=== PATIENT | female | born 1995 | race Caucasian/White ===

== ENCOUNTER 2019-06-08 10:30 | Outpatient (RCR) | payer BC, SELFPAY | END 2019-09-04 23:59 | disposition home or self-care (01) | LOC: ANHLAB 10:30 | PROVIDERS: PCP Family Medicine; Visit Provider Obstetrics & Gynecology | DX: O20.0 Threatened abortion (principal); Z3A.00 Weeks of gestation of pregnancy not specified | CPT/HCPCS: 36415; 84702 ==

== ENCOUNTER 2019-10-04 13:55 | Outpatient (CLI) | payer BC, MEDICAID, SELFPAY ==
[2019-10-04] VITALS (23 sets, daily range): BP systolic 112–141; BP diastolic 66–79; PULSE 106–126; O2SAT 94–99
== END 2019-10-04 16:00 | disposition home or self-care (01) ==
LOC: ANHOBOP 15:51 → ANHOBPP 15:51
PROVIDERS: PCP Family Medicine; Visit Provider Obstetrics & Gynecology
DX: O13.2 Gestational [pregnancy-induced] hypertension without significant proteinuria, second trimester (principal); Z3A.23 23 weeks gestation of pregnancy
CPT/HCPCS: 99199

== ENCOUNTER 2019-12-14 13:51 | Outpatient (RCR) | payer BC, MEDICAID, SELFPAY ==
--- NOTE | 2019-11-30 16:48 | PC.NURSE ---
Pt came from office for a BPP due to a 6/10 BPP in office. BPP on both babies 01/05. Dr Luther notified. DC orders given. Pt verified nest appointment in office is next WednesdayDecember 04.
--- NOTE | ~2019-12-14 | US_ITS ---
EXAMINATION: US OB BPP multi gestation DATE: 11/30/2019 16:18 INDICATION: Failed prior biophysical profile TECHNIQUE: Real-time ultrasound of the pelvis was performed. COMPARISON: None. FINDINGS: There are two living fetuses. The placenta(s) is/are anterior. The amniotic fluid volume is subjecti vely normal. Fetus A: Presentation is variable. heart rate is 161 beats per minute (bpm). Biophysical profile performed by the technologist: breathing (30 sec sustained breathing in 30 minutes): 2 out of 2 movement (3 gross body movements in 30 minutes): 2 out of 2 tone (one episode of mqvqlcc-rsuxmscwz-txyiton limb movement): 2 out of 2 Amniotic fluid pocket (2 cm): 2 out of 2 Total score: 8 out of 8 Fetus B: Presentation is variable. heart rate is 163 bpm. Biophysical profile performed by the technologist: breathing (30 sec sustained breathing in 30 minutes): 2 out of 2 movement (3 gross body movements in 30 minutes): 2 out of 2 tone (one episode of vdfxjzt-xkxpmycws-gycywia limb movement): 2 out of 2 Amniotic fluid pocket (2 cm): 2 out of 2 Total score: 8 out of 8 IMPRESSION: 1. Living twin fetuses. 2. Normal placenta(s). 3. Biophysical profile 8 out of 8 for fetus A and 8 out of 8 for fetus B. Reviewed, dictated and finalized at location A.
[2019-12-14 15:40] VITALS: BP 128/80; PULSE 131
== END 2020-01-15 07:32 | disposition home or self-care (01) ==
LOC: ANHOBOP 13:51
PROVIDERS: PCP Family Medicine; Visit Provider Obstetrics & Gynecology
DX: O36.8130 Decreased fetal movements, third trimester, not applicable or unspecified (principal); O30.003 Twin pregnancy, unspecified number of placenta and unspecified number of amniotic sacs, third trimester; Z3A.33 33 weeks gestation of pregnancy
CPT/HCPCS: 59025; 76819

== ENCOUNTER 2019-12-14 15:04 | Emergency (ER) | payer BC, SELFPAY ==
[2019-12-14] VITALS (11 sets, daily range): BP systolic 139–156; BP diastolic 90–92; PULSE 73–143; RESP 17–25; TEMP 36.6; O2SAT 97–100
--- NOTE | ~2019-12-14 | XR_ITS ---
EXAMINATION: XR chest 1V portable 12/14/2019 15:59 INDICATION: Cough and shortness of breath PROCEDURE: AP portable chest COMPARISON: 01/03/2016 FINDINGS: The lungs are clear. The cardiomediastinal silhouette is within normal limits. There are no pleural effusions. There is no pneumothorax suspected. IMPRESSION: 1: NO ACUTE CARDIOPULMONARY DISEASE. Reviewed, dictated and finalized at location B.
--- NOTE | 2019-12-14 15:21 | PC.NURSE ---
agree with triage note. pt states is hard to breath when laying down, has random coughing fits. also noting lower extremity edema. pt states ob is worried about possible chf.
--- NOTE | 2019-12-14 15:30 | ECG_ITS ---
Measurements Intervals [place] Rate: 130 P: 23 [place]: 135 QRS: 4 QRSD: 78 T: 3 QT: 333 QTc: 490 Interpretive Statements SINUS TACHYCARDIA LEFT VENTRICULAR HYPERTROPHY AND ST-T CHANGE BORDERLINE T WAVE ABNORMALITY- ANTEROLAT/INF LEADS BASELINE WANDER- V1 ABNORMAL ECG Electronically Signed On 12-14-2019 16:03:47 CDT by Eran Isidro D.O.
[2019-12-14] MEDS: SODIUM CHLORIDE 0.9% IV 500 ML 999 ML IV CONT (15:50)
[2019-12-14 16:11] LABS: Alanine Aminotransferase 18 U/L (4-35); Albumin Level 3.6 g/dL (3.5-5.1); Alkaline Phosphatase 186 U/L (38-126); Aspartate Amino Transferase 31 U/L (14-36); Bilirubin,Total 0.4 mg/dL (0.2-1.3); Blood Urea Nitrogen 7 mg/dL (7-17); Calcium 9.2 mg/dL (8.4-10.2); Carbon Dioxide 23 mmol/L (22-30); Chloride 102 mmol/L (98-107); Estimated CRCL calculation 187 ml/min; Estimated Glomerular Filt Rate > 60; Glucose 99 mg/dL (65-105); Lipase 48 U/L (23-300); Partial Thromboplastin Time 26.6 SECONDS (22.3-36.8); Potassium 3.7 mmol/L (3.4-5.0); Sodium 132 mmol/L (137-145)
--- NOTE | 2019-12-14 16:11 | ED.GENADULT ---
HPI - General Adult General Chief complaint: Shortness of Breath/Dyspnea Stated complaint: short of breath/cough/loss of voice/ Time Seen by Provider: 12/14/19 15:34 Source: patient and family Mode of arrival: ambulatory Limitations: no limitations History of Present Illness HPI narrative: Patient is a 24-year-old female who presents from obstetrical unit after having evaluation of patient over the last 48 hours has developed nonproductive cough some congestion and hoarseness patient denies sick contacts patient denies any current pain patient notes that her cough is nonproductive. Patient is currently with twin gestations at 33 weeks. Patient is managed by cardiac exercise physiologist Dr. Luther. Patient is also seen by [place] high risk . Patient is currently taking labetalol with history of hypertension and gestational diabetes. Patient notes that she has been compliant with her medications. Patient denies fever vomiting diarrhea urinary symptoms or vaginal complaints . Patient was evaluated at the obstetrical unit this morning after noting that she felt decreased movement with 1 of the babies. Patient was evaluated and sent to ER for further evaluation after being cleared from the obstetrical unit Related Data Home Medications Medication Instructions Recorded Confirmed sitagliptin 100 mg-metformin ER 1 tablet PO DAILY 12/08/19 1,000 mg tablet,extended [id number] mp aspirin [Aspirin Low Dose] 81 mg PO BID 12/14/19 atorvastatin 40 mg PO HS 12/14/19 clopidogrel [Plavix] 75 mg PO DAILY 12/14/19 hydralazine 10 mg PO ONCE PRN 12/14/19 levothyroxine 88 mcg PO DAILY 12/14/19 metoprolol succinate 25 mg PO HS 12/14/19 Allergies Allergy/AdvReac Type Severity Reaction Status Date / Time amoxicillin Allergy Unknown Unknown Verified 12/08/19 14:04 codeine Allergy Unknown Unknown Verified 12/08/19 14:04 Penicillins Allergy Unknown Unknown Verified 12/08/19 14:04 [facility] Social History Social History Smoking status: Never smoker Course Consultations Consultation #1: Discussed case twice with analytical chemistry teacher who would like the patient to follow in clinic given the clinical findings. Recommends Claritin and Delsym for symptoms. Does not recommend that the patient be kept in the hospital at this time Date: 12/14/19 Time: 18:00 Vital Signs Vital signs: Vital Signs Temperature 97.9 F 12/14/19 15:10 Pulse Rate 133 H 12/14/19 15:10 Respiratory Rate 20 12/14/19 15:10 Blood Pressure 156/92 H 12/14/19 15:10 Pulse Oximetry 97 12/14/19 15:10 Temperature 97.9 F 12/14/19 15:10 Pulse Rate 143 H 12/14/19 15:23 Respiratory Rate 20 12/14/19 15:10 Blood Pressure 156/92 H 12/14/19 15:10 Pulse Oximetry 97 12/14/19 15:10 Medical Decision Making MDM Narrative Medical decision making narrative: Patient in the room resting comfortably afebrile nontoxic-appearing aware of discussions and recommendations by her cardiac exercise physiologist felt appropriate for outpatient reevaluation patient given a 500 bolus in the emergency department patient feels comfortable with the plan and will follow with her cardiac exercise physiologist who is evaluating the patient with twice weekly visits patient provided with reasons to return if necessary no pneumonia seen on exam is being tested for COVID-19 and will self quarantining until results have been given. Vital Signs Vital Signs: Vital Signs Temperature 97.9 F 12/14/19 15:10 Pulse Rate 133 H 12/14/19 15:10 Respiratory Rate 20 12/14/19 15:10 Blood Pressure 156/92 H 12/14/19 15:10 Pulse Oximetry 97 12/14/19 15:10 Temperature 97.9 F 12/14/19 15:10 Pulse Rate 143 H 12/14/19 15:23 Respiratory Rate 12/14/19 15:10 Blood Pressure 156/92 H 12/14/19 15:10 Pulse Oximetry 97 12/14/19 15:10 Lab Data Result diagrams: 12/14/19 15:50 12/14/19 15:50 Labs: Lab Results 12/14/19 12/14/19 12/14/19 Range/Units 15:50 15:50 1
[2019-12-14 16:23] LABS: NT Pro B Type Natriuretic Pept 14 PG/ML (5-100); Troponin I < 0.012 ng/mL (0.000-0.034)
[2019-12-14 16:41] LABS: Add Urine Microscopic? YES; Appearance Urine Cloudy (Clear); Bacteria Urine Trace /hpf; Bilirubin Urine Negative (Negative); Blood Urine Negative (Negative); Color Urine Yellow (Yellow); Glucose Urine UA Negative (Negative); Ketones Urine Trace mg/dL (Negative); Leukocyte Esterase Ur Trace LEU/UL (Negative); Mucus Urine Rare /lpf; Nitrate Urine Negative (Negative); Protein Urine Negative (Negative); RBC Urine 0-2 /hpf (0-2); Specific Grav Ur 1.011 (1.001-1.035); Squamous Epithelial Cell Urine Many /hpf (Few); Urobilinogen Urine Negative mg/dL (<2.0); WBC Urine 0-3 /hpf
[2019-12-14 16:54] LABS: Amphetamine Screen Urine Negative (Negative); Barbiturate Screen Urine Negative (Negative); Benzodiazepines Screen Urine Negative (Negative); Cannabinoid Screen Urine Negative (Negative); Cocaine Screen Urine Negative (Negative); Methadone Screen Urine Negative (Negative); Opiate Screen Urine Negative (Negative); Phencyclidine Screen Urine Negative (Negative)
--- NOTE | 2019-12-14 17:33 | PC.NURSE ---
Called lab to add on CBCD
[2019-12-14 17:45] LABS: Basophils Percent Auto 0.3 % (0.2-1.2); Eosinophils Absolute Auto 0.1 K/mm3 (0-0.3); Hematocrit 35.7 % (37.0-47.0); Hemoglobin 12.3 g/dL (12.0-15.0); Immature Granulocyte Absolute 0.16 K/mm3 (0.00-0.031); Immature Granulocyte Percent A 1.3 % (0-0.5); Lymphocytes Absolute Auto 2.85 K/mm3 (0.9-3.2); Lymphocytes Percent Auto 23.3 % (18.3-44.2); Mean Corpuscular HGB Conc 34.5 g/dl (32-36); Mean Corpuscular Hemoglobin 30.3 pg (26-34); Mean Corpuscular Volume 87.9 fl (80-100); Mean Platelet Volume 12.4 fl (7.4-10.4); Monocytes Absolute Auto 0.9 K/mm3 (0.1-0.6); Monocytes Percent Auto 7.4 % (2.6-8.5); Neutrophils Absolute Auto 8.2 K/mm3 (1.3-6.7); Neutrophils Percent Auto 66.7 % (45.5-73.1); Platelet Count Result 227 k/mm3 (150-375); Red Blood Count 4.06 M/mm3 (4.2-5.4); Red Cell Distribution Width 14.3 % (11.5-14.5); White Blood Count 12.2 K/mm3 (4.5-10.0)
[2019-12-15 14:35] LABS: SARS-CoV-2 RNA PCR Negative
== END 2019-12-14 18:48 | disposition home or self-care (01) ==
PROVIDERS: Emergency Medicine Emergency Medical Services; Emergency Provider Emergency Medicine; PCP Family Medicine
DX: O99.513 Diseases of the respiratory system complicating pregnancy, third trimester (principal); J06.9 Acute upper respiratory infection, unspecified; Z20.828 Contact with and (suspected) exposure to other viral communicable diseases; O30.003 Twin pregnancy, unspecified number of placenta and unspecified number of amniotic sacs, third trimester; O24.415 Gestational diabetes mellitus in pregnancy, controlled by oral hypoglycemic drugs; O10.913 Unspecified pre-existing hypertension complicating pregnancy, third trimester; O26.893 Other specified pregnancy related conditions, third trimester; R00.0 Tachycardia, unspecified; I51.7 Cardiomegaly; R94.31 Abnormal electrocardiogram [ECG] [EKG]; Z79.82 Long term (current) use of aspirin; Z79.02 Long term (current) use of antithrombotics/antiplatelets; Z3A.33 33 weeks gestation of pregnancy
CPT/HCPCS: 36415; 71045; 80053; 80307; 81001; 83690; 83880; 84484; 85025; 85610; 85730; 87081; 87635; 87880; 93005; 96360; 96361; 99284; C9803; J7040; U0003

== ENCOUNTER 2020-01-11 08:49 | Outpatient (CLI) | payer BC, MEDICAID, SELFPAY ==
[2020-01-11 09:29] LABS: Hematocrit 35.1 % (37.0-47.0); Hemoglobin 11.4 g/dL (12.0-15.0); Mean Corpuscular HGB Conc 32.5 g/dl (32-36); Mean Corpuscular Hemoglobin 28.6 pg (26-34); Mean Platelet Volume 12.4 fl (7.4-10.4); Platelet Count Result 208 k/mm3 (150-375); Red Blood Count 3.99 M/mm3 (4.2-5.4); Red Cell Distribution Width 14.4 % (11.5-14.5); White Blood Count 9.8 K/mm3 (4.5-10.0)
[2020-01-12 07:51] LABS: Rapid Plasma Reagin Non-Reactive (NonReactive)
== END 2020-01-11 08:50 | disposition home or self-care (01) ==
PROVIDERS: PCP Family Medicine; Visit Provider Obstetrics & Gynecology
DX: Z34.93 Encounter for supervision of normal pregnancy, unspecified, third trimester (principal); Z3A.00 Weeks of gestation of pregnancy not specified
CPT/HCPCS: 36415; 85027; 86592; 86850; 86900; 86901

== ENCOUNTER 2020-01-12 05:01 | Inpatient (IN) | payer BC, MEDICAID, SELFPAY ==
--- NOTE | 2020-01-11 17:04 | P.HP_ITS ---
H&P: HPI History of Present Illness Date/Time: 01/11/20 17:04 Chief complaint: Prior For Twins Narrative: Genesis Banegas is a 25 year old female at 37+ weeks with di-di twins and h/o prior C section being admitted for elective repeat C/S. c/b chronic HTN and GDMA2. Occasional contractions. + movement. No bleeding or leaking fluid Review of Systems Review of Systems: All systems reviewed & are unremarkable except as noted in HPI and below PMFSH Social History Social History Smoking status: Never smoker Meds Home Medications and Allergies Home Medications Medication Instructions Recorded Confirmed Type quetiapine 50 mg tablet 50 mg PO BID #180 tablet 09/18/19 Rx labetalol 200 mg tablet 200 mg PO Q12H #60 tablet 11/27/19 Rx aspirin [Aspirin Low Dose] 81 mg PO DAILY 12/14/19 History metformin 500 mg tablet 500 mg PO BID 12/22/19 History diphenhydramine HCl 50 mg/30 mL 50 mg PO Q8H PRN 12/29/19 History oral liquid docosahexaenoic acid 200 mg capsule mg PO 12/29/19 History Allergies Allergy/AdvReac Type Severity Reaction Status Date / Time amoxicillin Allergy Unknown Unknown Verified 01/05/20 14:22 codeine Allergy Unknown Unknown Verified 01/05/20 14:22 Penicillins Allergy Unknown Unknown Verified 01/05/20 14:22 Exam Const: General: no acute distress Resp: Auscultation: clear to auscultation bilaterally Cardio: Rate: regular rate Rhythm: regular rhythm GI: Inspection: non-distended GI Palp: Yes Soft to palpation and No Tenderness to palpation present (GI) Percussion: Yes other (gravid) Extrem: Right lower extremity: edema Left lower extremity: edema Psych: Mental Status: mental status grossly normal Assessment and Plan Assessment and plan (1) Twin in third trimester: Code(s): O30.003 - Twin , unspecified number of placenta and unspecified number of amniotic sacs, third trimester Status: Acute Assessment and Plan: testing has all been normal, concordant growth (2) Previous delivery affecting : Code(s): O34.219 - Maternal care for unspecified type scar from previous delivery Status: Acute Assessment and Plan: Proceed with repeat C section. She signed consent after risks, benefits, complications, and alternatives discussed. Risks include but are not limited to bleeding; transfusion; infection; damage to bowel, bladder, ureter, and/or blood vessels; risk of anesthesia. She expressed understanding and wishes to proceed. (3) Gestational diabetes mellitus (GDM) during childbirth controlled on oral hypoglycemic therapy: Code(s): O24.425 - Gestational diabetes mellitus in childbirth, controlled by oral hypoglycemic drugs Status: Acute (4) Hypertension complicating in third trimester: Code(s): O16.3 - Unspecified maternal hypertension, third trimester Status: Acute Assessment and Plan: On labetalol, no evidence of preeclampsia
[2020-01-12] VITALS (82 sets, daily range): BP systolic 93–148; BP diastolic 52–92; PULSE 63–130; RESP 11–20; TEMP 36.5–36.8; O2SAT 95–100; BMI 55.6
--- NOTE | 2020-01-12 05:32 | LDADM ---
This patient, Genesis Banegas, was admitted to Labor/Delivery/Recovery 120 on 01/12/20 at 05:01. Plans for labor, pain management and were discussed with patient. Patient/family oriented to hospital policies and general routines including ID bracelet, bed and alarms, visiting hours, pain management, procedures, bathroom and other care routines, personal items, smoking policy, room service/diet and guest tray routines, infant security routines, and visiting hours. Patient/Family are encouraged to report perceived risks to care and to ask questions if they do not understand what they are told or what they should do. See OBIX for further documentation.
[2020-01-12] MEDS: LACTATED RINGERS 1,000 ML 999 ML IV CONT ×2 (05:47→11:20)
[2020-01-12 05:51] LABS: Glucose Point of Care 95 (65-105)
[2020-01-12] MEDS: LACTATED RINGERS 1,000 ML 125 ML IV CONT (06:16)
[2020-01-12] MEDS: LABETALOL HCL 100 MG TABLET 200 MG PO ×2 (06:58→21:56)
[2020-01-12] MEDS: CLINDAMYCIN 900 MG/NS 50 ML 900 MG/50 ML PIGGYBACK 50 MG IVPB (07:02)
--- NOTE | 2020-01-12 07:07 | WPDANESEPPF ---
Anes - Initial Pre Proc Eval Procedure: Operation Date: 01/12/20 07:30 Proposed Procedures p Repeat Section For Twins - Myah Luther MD Date/Time: 01/12/20 07:07 Surgeon: Myah Luther MD Pre Op Diagnosis: Prior For Twins Patient Data Age: 25 Gender: F Height: 5 ft 2 in Weight: 138 kg Last Vital Signs Temp 36.8 C 01/12/20 06:57 Pulse 108 H 01/12/20 06:58 BP 139/77 01/12/20 06:57 Allergies Allergy/AdvReac Type Severity Reaction Status Date / Time amoxicillin Allergy Unknown Hives Verified 01/12/20 06:19 Penicillins Allergy Unknown Hives Verified 01/12/20 06:20 codeine AdvReac Unknown Nausea and Verified 01/12/20 06:20 Vomiting Home Medications Medication Instructions Recorded Confirmed Type labetalol 200 mg tablet 200 mg PO Q12H #60 tablet 11/27/19 01/12/20 Rx docosahexaenoic acid 200 mg capsule 200 mg PO DAILY 12/29/19 01/12/20 History aspirin 1 tablet PO DAILY 01/12/20 01/12/20 History diphenhydramine HCl [Unisom 25 mg PO HS PRN 01/12/20 01/12/20 History SleepMelts] metformin 500 mg PO BID 01/12/20 01/12/20 History quetiapine [Seroquel] 50 mg PO HS 01/12/20 01/12/20 History Laboratory Tests 01/12/20 05:44 POC Capillary Glucose 95 mg/dl mg/dl (65-105) Patient hx anesthesia problems: none Family hx anesthesia problems: none PMFSH Past Medical History Medical History Attention-deficit hyperactivity disorder, unspecified type Generalized anxiety disorder Gestational diabetes mellitus (GDM) during childbirth controlled on oral hypoglycemic therapy Hyperlipidemia Hypertension complicating in third trimester Hypothyroid Personal history of traumatic brain injury Social History Social History Smoking status: Former smoker Substance use: former 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 Gender identity (if verbalized by the patient): Female Spiritual care concerns: No Anes - Eval Final PreProcedure Day of Procedure 01/12/20 07:07 Patient weight: super morbidly obese Heart: regular rate and rhythm Lungs: decreased breath sounds Airway: Mallampati scale class II Neurological: alert and oriented Last oral intake: >/= 8 hours ASA classification: III Emergent: no Anesthetic plan: proceed Anesthesia type and monitoring: regional spinal and standard monitoring Informed Consent: The patient's anesthetic plan and its attendant risks and benefits were discussed with the patient/family/POA. Questions were solicited and answers provided to the satisfaction of the patient/family/POA.
[2020-01-12] MEDS: GENTAMICIN SULFATE INJ 425 MG in DEXTROSE 5% 100 ML 94.4 MG IVPB (07:26)
--- NOTE | 2020-01-12 08:07 | SUR.OPER ---
Christian Gonzalez was assisted out of OR per wheelchair due to feeling light headed.
--- NOTE | 2020-01-12 08:39 | P.OP_ITS ---
Procedure Note - Detailed Date of procedure: 01/12/20 Pre-op diagnosis: Prior For Twins Prior C section, di-di twins, chronic HTN, GDMA2 Post-op diagnosis: same Procedure performed: Repeat LTCS Description of procedure: For the procedure, she was taken to the operating room where spinal anesthesia was obtained and found to be adequate. She was prepared and draped in the normal sterile fashion in the dorsal supine position with a leftward tilt. A Pfannenstiel skin incision was made over her prior incision using the scalpel. The incision was extended to the underlying layer of fascia with the scalpel then extended laterally with the Rapp scissors on the fascia. The underlying rectus muscles were dissected off bluntly and sharply and in the midline. The peritoneum was entered sharply and extended inferiorly and superiorly with good visualization of the bladder. The bladder blade was inserted. The vesicouterine peritoneum was tented up with the Metzenbaum scissors and entered sharply and extended laterally with the Rapp scissors scissors. The bladder flap was created sharply. The bladder blade was reinserted. The lower uterine segment was incised in a transverse fashion with the scalpel. The incision was digitally stretched in a cephalad caudad direction. Baby A's membranes were ruptured with clear fluid noted. The 's head was delivered atraumatically. The shoulders and body were delivered easily. The cord was clamped x2 and cut and the infant was given to the awaiting nurse. Baby B's membranes were still intact. The membranes were ruptured with clear fluid noted both feet were at the incision so gentle traction was placed on the legs until the level of the hips were delivered. Then gentle traction was placed on the hips until the scapula had been delivered. The left (anterior) arm was flexed across the chest and brought easily through the incision. The was then rotated 180? and the other arm was then flexed across the chest and brought easily through the incision. The 's head was flexed and delivered easily. The cord was clamped x2 and cut and the infant was passed to the waiting nurse. Cord gas and cord blood was obtained from both cords. The placenta was then manually extracted. The uterus was exteriorized and cleared of all clots and debris. The uterine incision was then closed using 0 Vicryl in a running locked fashion. The uterus was then returned to the abdomen. The gutters were cleared of all clots and debris. The uterine incision was reinspected and found to be hemostatic. The rectus muscles were inspected. Any bleeding points were cauterized. The fascia was then closed using 0 Vicryl in a running locked fashion. The subcutaneous tissue was irrigated. All bleeding points were cauterized. Then the skin was closed using interrupted absorbable louie. She tolerated the procedure well. Sponge lap needle and instrument counts were correct x2. She was taken to the recovery area in stable condition. Anesthesia: spinal Surgeon: Myah Luther MD Estimated blood loss (mL): 395 Drains: Yes ([place]) Packing: No Pathology: yes Complications: No immediate complications Condition: stable Disposition: floor Findings: Baby A - female, cephalic, Apgars 4/7, 7#8oz; Baby B - male, double f ootling breech, Apgars 8/9, 7#13oz; normal uterus, tubes, and ovaries
--- NOTE | 2020-01-12 08:47 | SUR.PHASEI ---
1000 ml LR with 40 units Pitocin is hanging with 200 ml left to count.
[2020-01-12] MEDS: OXYTOCIN 30 UNITS/NS 500 ML 30 UNITS/500 ML BAG 125 UNITS IV CONT (09:57)
[2020-01-12] MEDS: ONDANSETRON INJ 4 MG/2 ML VIAL IV PUSH (10:40)
--- NOTE | 2020-01-12 11:15 | SUR.PHASEI ---
To nursery per stretcher to see infants.
[2020-01-12] MEDS: diphenhydrAMINE HCl INJ 50 MG/ML VIAL 25 MG IV PUSH ×2 (13:49→21:56)
[2020-01-12] MEDS: KETOROLAC 30 MG/ML VIAL (*BKC) IV PUSH (20:10)
[2020-01-12] MEDS: QUEtiapine FUMARATE 25 MG TABLET 50 MG PO (21:57)
[2020-01-13] VITALS (8 sets, daily range): BP systolic 100–143; BP diastolic 52–82; PULSE 82–106; RESP 16–18; TEMP 36.4–37; O2SAT 95–98
[2020-01-13] MEDS: KCL 20 MEQ/D5/0.45% SOD CHL 1,000 ML 125 ML IV CONT (00:06)
[2020-01-13] MEDS: ACETAMINOPHEN 325 MG TABLET 650 MG PO ×3 (01:46→15:43)
[2020-01-13] MEDS: KETOROLAC 30 MG/ML VIAL (*BKC) IV PUSH ×2 (05:12→12:27)
[2020-01-13 06:22] LABS: Basophils Percent Auto 0.3 % (0.2-1.2); Eosinophils Percent Auto 0.3 % (0-4.4); Hematocrit 30.4 % (37.0-47.0); Hemoglobin 10.2 g/dL (12.0-15.0); Immature Granulocyte Absolute 0.11 K/mm3 (0.00-0.031); Lymphocytes Absolute Auto 2.67 K/mm3 (0.9-3.2); Lymphocytes Percent Auto 23.3 % (18.3-44.2); Mean Corpuscular HGB Conc 33.6 g/dl (32-36); Mean Corpuscular Hemoglobin 30.9 pg (26-34); Mean Corpuscular Volume 92.1 fl (80-100); Mean Platelet Volume 12.8 fl (7.4-10.4); Monocytes Absolute Auto 0.8 K/mm3 (0.1-0.6); Monocytes Percent Auto 7.3 % (2.6-8.5); Neutrophils Absolute Auto 7.8 K/mm3 (1.3-6.7); Neutrophils Percent Auto 67.8 % (45.5-73.1); Platelet Count Result 180 k/mm3 (150-375); Red Cell Distribution Width 15.8 % (11.5-14.5); White Blood Count 11.5 K/mm3 (4.5-10.0)
[2020-01-13] MEDS: MULTIVIT/MIN/PREN/FOL AC/IRON TABLET 1 TAB PO (08:18)
[2020-01-13] MEDS: LABETALOL HCL 100 MG TABLET 200 MG PO ×2 (08:19→20:45)
[2020-01-13] MEDS: DOCUSATE SODIUM 100 MG CAPSULE PO ×2 (08:19→15:43)
[2020-01-13] MEDS: diphenhydrAMINE HCl INJ 50 MG/ML VIAL 25 MG IV PUSH (08:20)
--- NOTE | 2020-01-13 08:28 | WPDANLDNPN2 ---
Anes-Prog Note L&D-Neuraxial Date/Time: 01/13/20 08:28 Opiod-related complaints: none Patient feedback: Patient satisfied with post-operative pain management.
--- NOTE | 2020-01-13 08:28 | WPDANLDPN2 ---
Anes-Prog Note L&D Date/Time: 01/13/20 08:28 Comfortable throughout: section Neuraxial method: spinal Epidural/Spinal procedure site: clean & non-tender Neuro status: Neuro function grossly intact. Cardiovascular status: normal Respiratory status: normal Airway patency: baseline Mental status: baseline Post-Op hydration status: normal Vital Signs: Last Vital Signs Temp 36.9 C 01/13/20 05:05 Pulse 84 01/13/20 08:19 Resp 16 01/13/20 05:07 BP 107/52 L 01/13/20 05:05 Pulse Ox 97 01/13/20 05:07 I/O: Intake & Output 01/12/20 01/13/20 01/13/20 23:59 07:59 15:59 Intake Total 1330 300 Output Total 725 675 Balance 605 -375 Post-procedural complaints: none Patient feedback: Patient satisfied with anesthetic care.
--- NOTE | 2020-01-13 10:35 | P.PNOB_ITS ---
OB - PN: Subj Subjective Date/time seen: 01/13/20 10:35 Patient comments: no complaints, pain well controlled, incisional pain, tolerating diet, flatus present and other (Lochia similar to menses) baby status: doing well OB - PN: Obj Data Labs CBC & Chem 7: 01/13/20 05:23 Labs: Laboratory Results - last 24 hr 01/13/20 05:23 WBC 11.5 H RBC 3.30 L Hgb 10.2 L Hct 30.4 L MCV 92.1 MCH 30.9 D MCHC 33.6 RDW 15.8 H Plt Count 180 MPV 12.8 H Immature Gran % (Auto) 1.0 H Neut % (Auto) 67.8 Lymph % (Auto) 23.3 [place] % (Auto) 7.3 Eos % (Auto) 0.3 Baso % (Auto) 0.3 Lymph # (Auto) 2.67 [place] # (Auto) 0.8 H Eos # (Auto) 0.0 Baso # (Auto) 0.0 Abs Immat Gran (auto) 0.11 H Absolute Neuts (auto) 7.8 H Absolute Nucleated RBC 0.0 Nucleated RBC % 0.0 OB - PN A/P Plan day: 1 (s/p C section, doing well) Plan: routine care Time Spent With Patient Time: Total time spent is greater than 50% in coordination of care (as doc umented) at patient's floor/unit and/or counseling patient: Exam Const: General: no acute distress Resp: Auscultation: clear to auscultation bilaterally Cardio: Rate: regular rate Rhythm: regular rhythm GI: Inspection: non-distended, incision (Intact without erythema, drainage, or induration) and other (Fundus firm and nontender at umbilicus) GI Palp: Yes abdominal tenderness (appropriate ) and Yes Soft to palpation Extrem: General: no edema
[2020-01-13] MEDS: QUEtiapine FUMARATE 25 MG TABLET 50 MG PO (19:26)
[2020-01-13] MEDS: KETOROLAC 10 MG TABLET PO (19:27)
[2020-01-13] MEDS: TETANUS,DIPHTHERIA,AC PERTUSSIS ADULT (0.5 ML) BOOSTRIX IM (19:58)
[2020-01-13] MEDS: diphenhydrAMINE HCl CAP 25 MG CAPSULE PO (20:05)
[2020-01-13] MEDS: SIMETHICONE 80 MG TAB.CHEW PO (23:10)
--- NOTE | 2020-01-14 03:40 | PC.NURSE ---
01/13/2020 at 2130 Patient viewed the discharge video Mother & Baby Care, The First Two Weeks . Patient was given the opportunity and encouraged to ask questions. Patient verbalized understanding of information shared and has been given the mother/baby guide for home reference.
[2020-01-14] MEDS: KETOROLAC 10 MG TABLET PO ×2 (05:35→11:51)
[2020-01-14] MEDS: SIMETHICONE 80 MG TAB.CHEW PO ×3 (05:35→11:51)
[2020-01-14 08:15] VITALS: BP 143/91; PULSE 98; RESP 18; TEMP 36.2; O2SAT 100
[2020-01-14] MEDS: DOCUSATE SODIUM 100 MG CAPSULE PO (08:31)
[2020-01-14] MEDS: MULTIVIT/MIN/PREN/FOL AC/IRON TABLET 1 TAB PO (08:31)
[2020-01-14 08:32] VITALS: PULSE 99
[2020-01-14] MEDS: LABETALOL HCL 100 MG TABLET 200 MG PO (08:32)
--- NOTE | 2020-01-14 08:34 | PM.OBPNVD ---
OB - PN: Subj Subjective Date/time seen: 01/14/20 08:34 Patient comments: no complaints, pain well controlled, tolerating diet, flatus present and other (Ambulating and voiding without problems. Lochia similar to menses) baby status: doing well OB - PN: Obj Data Labs CBC & Chem 7: 01/13/20 05:23 OB - PN A/P Plan day: 2 (s/p C section, doing well) Plan: routine care and discharge home (Follow up in 1 week) Time Spent With Patient Time: Total time spent is greater than 50% in coordination of care (as documented) at patient's floor/unit and/or counseling patient: Time with patient: less than 15 minutes Exam Const: General: no acute distress Resp: Auscultation: clear to auscultation bilaterally Cardio: Rate: regular rate Rhythm: regular rhythm GI: Inspection: non-distended, incision (Intact without erythema, drainage, or induration) and other (Fundus firm and nontender below umbilicus) GI Palp: Yes abdominal tenderness (appropriate) and Yes Soft to palpation Extrem: General: no edema
--- NOTE | 2020-01-14 08:34 | PM.OBDSVD ---
DS: Admitting Diagnosis Admitting Diagnosis Admitting Diagnosis: Prior For Twins OB - DS: Summary OB Procedures : None OB Procedures Intrapartum: OB Procedures: : None Peripartum Data Delivery Method: Section Procedures: Procedures Operation Date: 01/12/20 07:30 Actual Procedures Side Surgeon p Repeat Section For Twins Not Applicable Myah Luther MD complications: none Status at Discharge Functional status at discharge: independent ambulation Overall status at discharge: patient is progressing back to baseline Time Spent with Patient Time attestation: Total time spent providing and/or coordinating discharge services: Time spent: Less than 30 minutes DS: Data Data Completed and Pending Pending studies at discharge: Pending at discharge 01/12/20 08:07 Surgical [PTH] Routine Discharge Plan Discharge Attending physician on discharge: Myah Luther Discharging Clinician: Myah Luther Patient Disposition: Home, Self-Care Activity: may shower and pelvic rest Diet: regular Wound Care Instructions: incision open to air Patient Instructions: Antibiotic Form Stand Alone Forms: General Discharge Information Follow-up/Referrals: Myah Luther MD [Physician] - 1 Week Discharge Medications: New hydrocodone-acetaminophen 5-325 mg Tablet 1 tab PO Q4H PRN (Reason: Moderate Pain (4-6)) Qty: 30 RF: 0 ketorolac 10 mg Tablet 10 mg PO Q6H PRN (Reason: Abdominal Cramping) Qty: 30 RF: 0 Continued DHA 200 mg capsule 200 mg PO DAILY RF: 0 quetiapine [Seroquel] 50 mg tablet 50 mg PO HS RF: 0 Unisom SleepMelts 25 mg Tablet,Disintegrating 25 mg PO HS PRN (Reason: Sleep) RF: 0 labetalol 200 mg tablet 200 mg PO Q12H Qty: 60 RF: 0 Discontinued aspirin 81 mg tablet,chewable 1 tablet PO DAILY RF: 0 metformin 500 mg tablet extended release 24 hr 500 mg PO BID RF: 0 Date of admission: 01/12/20 05:01 Primary Care Provider: Eliud Zaman Admitting Provider: Myah Luther Attending physician on admission: Myah Luther
== END 2020-01-14 13:00 | disposition home or self-care (01) | DRG 787 ==
LOC: ANHLDR 05:17 → ANHOB2 13:27
PROVIDERS: Admitting Provider Obstetrics & Gynecology; PCP Family Medicine; Visit Provider Obstetrics & Gynecology
PROC: 10D00Z1 Extraction of Products of Conception, Low, Open Approach (ICD-10-PCS; CPT 59514; principal; 2020-01-12 07:30)
DX: O30.043 Twin pregnancy, dichorionic/diamniotic, third trimester (principal); O10.92 Unspecified pre-existing hypertension complicating childbirth; O24.420 Gestational diabetes mellitus in childbirth, diet controlled; O34.211 Maternal care for low transverse scar from previous cesarean delivery; O99.214 Obesity complicating childbirth; O32.8XX2 Maternal care for other malpresentation of fetus, fetus 2; E66.01 Morbid (severe) obesity due to excess calories; Z3A.37 37 weeks gestation of pregnancy; Z37.2 Twins, both liveborn
CPT/HCPCS: 36415; 85025; 85027; 86592; 86850; 86900; 86901; 88307; 90715; A9270; J0131; J1200; J1580; J1885; J2274; J2370; J2405; J2590; J2704; J3480; J7120

== ENCOUNTER 2020-01-16 17:11 | Observation (INO) | payer BC, MEDICAID, SELFPAY ==
[2020-01-16] VITALS (68 sets, daily range): BP systolic 123–183; BP diastolic 61–115; PULSE 60–126; RESP 12–18; TEMP 36.7–37.2; O2SAT 95–100
--- NOTE | ~2020-01-16 | XR_ITS ---
EXAMINATION: XR chest 1V portable DATE: 01/16/2020 18:27 INDICATION: Shortness of breath. Heart flutter. TECHNIQUE: frontal view of the chest was obtained. COMPARISON: Chest radiograph dated 12/14/2019 FINDINGS: Linear discoid atelectasis at the medial right lung base. No other airspace opacities, pulmonary dariana a, pleural effusion or pneumothorax. The cardiomediastinal silhouette is normal. IMPRESSION: 1. Mild right basilar atelectasis. Reviewed, dictated and finalized at location A.
--- NOTE | 2020-01-16 17:30 | ECG_ITS ---
Measurements Intervals [place] Rate: 100 P: 35 DC: 143 QRS: 14 QRSD: 84 T: 31 QT: 327 QTc: 423 Interpretive Statements SINUS TACHYCARDIA BORDERLINE ECG Electronically Signed On 01-17-2020 6:56:16 CDT by Eran Isidro D.O.
--- NOTE | 2020-01-16 17:33 | ED.GENADULT ---
HPI - General Adult General Chief complaint: Shortness of Breath/Dyspnea Stated complaint: 4 days , short of breath Time Seen by Provider: 01/16/20 17:24 Source: patient History of Present Illness HPI narrative: Patient is a 25 y/o female complaining of mild SOB starting today. She also has some leg swelling, feel like her shoes are not fitting. She also has some blurred vision. She has no chest pain, cough or fever. She states that she had 4 days ago for twin. She contacted Dr. Donahue's office and was told to come to ED for evaluation. She has chronic HTN and takes Labetalol. Related Data Home Medications Medication Instructions Recorded Confirmed docosahexaenoic acid 200 mg capsule 200 mg PO DAILY 12/29/19 01/12/20 Unisom SleepMelts 25 mg PO HS PRN 01/12/20 01/12/20 quetiapine [Seroquel] 50 mg PO HS 01/12/20 01/12/20 aspirin 01/16/20 Allergies Allergy/AdvReac Type Severity Reaction Status Date / Time amoxicillin Allergy Unknown Hives Verified 01/16/20 17:34 Penicillins Allergy Unknown Hives Verified 01/16/20 17:34 Review of Systems Constitutional: Constitutional: Denies chills, Denies fever(s), Denies headache(s) and Denies weakness Eyes: Eyes: Reports blurry vision ENT: Denies headache(s) and Denies neck pain Cardiovascular: Cardiovascular: Denies chest pain and Reports dyspnea Respiratory: Respiratory: Denies cough and Reports dyspnea Gastrointestinal: Gastrointestinal: Denies abdominal pain, Denies diarrhea, Denies nausea and Denies vomiting Genitourinary: Genitourinary: Denies hematuria and Denies dysuria Musculoskeletal: Musculoskeletal: Denies back pain and Denies neck pain Neurologic: Denies headache(s) and Denies weakness [facility] Social History Social History Smoking status: Former smoker Substance use: former 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 Gender identity (if verbalized by the patient): Female Spiritual care concerns: No Exam Const: General: no acute distress and well developed Orientation/consciousness: oriented to person, oriented to place, oriented to time and patient oriented x3 HENMT: Head: normocephalic Ears: external ears normal General nose exam: Normal external nose present Eyes: General: appearance normal, both eyes and all related structures Conjunctivae: conjunctivae normal Neck: Neck: normal visual inspection and full ROM Chest: Chest palpation & inspection: normal inspection of the chest and no tenderness Resp: Effort & Inspection: normal respiratory effort Auscultation: clear to auscultation bilaterally Cardio: Rate: tachycardic Rhythm: regular rhythm GI: GI Palp: No abdominal tenderness and Yes Soft to palpation Skin: General skin exam: normal color and turgor normal Neuro: General: oriented to person, oriented to place, oriented to time and patient oriented x3 Cognition (Neuro): normal cognition Extrem: General: normal to inspection, full ROM and no pedal edema Psych: Appearance: grossly normal Mental Status: mental status grossly normal Affect: Anxious affect present Course Consultations Consultation #1: Discussed with Dr. Li (Tattooer), who agrees to admit to L&D. Date: 01/16/20 Time: 19:25 Vital Signs Vital signs: Vital Signs Temperature 37.2 C 01/16/20 17:26 Pulse Rate 126 H 01/16/20 17:26 Respiratory Rate 18 01/16/20 17:26 Blood Pressure 183/115 H 01/16/20 17:26 Pulse Oximetry 97 01/16/20 17:26 Temperature 36.7 C 01/16/20 19:45 Pulse Rate 97 01/16/20 22:01 Respiratory Rate 17 01/16/20 19:45 Blood Pressure 146/80 H 01/16/20 22:01 Pulse Oximetry 98 01/16/20 22:22 Medical Decision Making Vital Signs Vital Signs: Vital Signs Temperature 37.2 C 01/16/20 17:26 Pulse Rate 126 H 01/16/20 17:26 Respiratory Rate 18 01/16/20 17:26 Blood Pressure 183/115 H 01/16/20 17:26 Pulse Oximetry 97 01/16/20 17
[2020-01-16] MEDS: LABETALOL HCL INJ 100 MG/20 ML VIAL 20 MG IV PUSH ×2 (17:46→19:11)
[2020-01-16 17:54] LABS: Basophils Percent Auto 0.3 % (0.2-1.2); Eosinophils Absolute Auto 0.2 K/mm3 (0-0.3); Eosinophils Percent Auto 2.5 % (0-4.4); Hemoglobin 10.2 g/dL (12.0-15.0); Immature Granulocyte Absolute 0.13 K/mm3 (0.00-0.031); Immature Granulocyte Percent A 1.6 % (0-0.5); Lymphocytes Absolute Auto 2.63 K/mm3 (0.9-3.2); Lymphocytes Percent Auto 33.2 % (18.3-44.2); Mean Corpuscular HGB Conc 32.9 g/dl (32-36); Mean Corpuscular Hemoglobin 28.5 pg (26-34); Mean Corpuscular Volume 86.6 fl (80-100); Mean Platelet Volume 11.2 fl (7.4-10.4); Monocytes Absolute Auto 0.5 K/mm3 (0.1-0.6); Monocytes Percent Auto 6.4 % (2.6-8.5); Neutrophils Absolute Auto 4.4 K/mm3 (1.3-6.7); Platelet Count Result 283 k/mm3 (150-375); Red Blood Count 3.58 M/mm3 (4.2-5.4); Red Cell Distribution Width 14.3 % (11.5-14.5); White Blood Count 7.9 K/mm3 (4.5-10.0)
[2020-01-16 18:04] LABS: INR 0.9; Prothrombin Time 12.3 Seconds (11.1-14.7); Uric Acid 5.9 mg/dL (2.5-7.5)
[2020-01-16 18:05] LABS: Alanine Aminotransferase 49 U/L (4-35); Albumin Level 3.4 g/dL (3.5-5.1); Alkaline Phosphatase 149 U/L (38-126); Anion Gap 8 mmol/L (8-16); Aspartate Amino Transferase 52 U/L (14-36); Bilirubin,Total 0.1 mg/dL (0.2-1.3); Blood Urea Nitrogen 16 mg/dL (7-17); Carbon Dioxide 24 mmol/L (22-30); Chloride 106 mmol/L (98-107); Estimated CRCL calculation 161 ml/min; Estimated Glomerular Filt Rate > 60; Glucose 91 mg/dL (65-105); Partial Thromboplastin Time 26.9 SECONDS (22.3-36.8); Potassium 3.7 mmol/L (3.4-5.0); Sodium 138 mmol/L (137-145)
[2020-01-16 18:14] LABS: NT Pro B Type Natriuretic Pept 252 PG/ML (5-100)
[2020-01-16 19:02] LABS: Add Urine Microscopic? YES; Appearance Urine Cloudy (Clear); Bilirubin Urine Negative (Negative); Blood Urine 3+ (Negative); Color Urine Yellow (Yellow); Glucose Urine UA Negative (Negative); Ketones Urine Negative (Negative); Leukocyte Esterase Ur 1+ LEU/UL (Negative); Mucus Urine Few /lpf; Nitrate Urine Negative (Negative); Protein Urine 2+ mg/dL (Negative); RBC Urine >75 /hpf (0-2); Specific Grav Ur 1.029 (1.001-1.035); Squamous Epithelial Cell Urine Many /hpf (Few); Urobilinogen Urine Negative mg/dL (<2.0)
--- NOTE | 2020-01-16 19:55 | PC.NURSE ---
Unable to depart patient. Pt. Left department at 1950
[2020-01-16 20:04] LABS: Troponin I < 0.012 ng/mL (0.000-0.034)
[2020-01-16 20:17] LABS: D Dimer 6.06 ug/mL (<0.48)
--- NOTE | 2020-01-16 20:30 | PC.NURSE ---
pt states pt was on phone during bp reading and was crying and very upset, bp retaken
[2020-01-16] MEDS: MAGNESIUM SULF 4 GM/WATER100ML 4 GM/100 ML BAG IVPB (20:43)
[2020-01-16] MEDS: LACTATED RINGERS 1,000 ML 75 ML IV CONT (20:43)
[2020-01-16] MEDS: LABETALOL HCL 100 MG TABLET 200 MG PO (20:59)
[2020-01-16] MEDS: MAGNESIUM SULF 20GM/WATER500ML 500 ML 50 MG IV CONT (21:35)
[2020-01-16] MEDS: QUEtiapine FUMARATE 25 MG TABLET 50 MG PO (22:15)
[2020-01-16] MEDS: diphenhydrAMINE HCl CAP 25 MG CAPSULE PO (22:19)
--- NOTE | 2020-01-16 23:45 | PC.NURSE ---
pt reports pain has improved and pt is more comfortable. pt denies headache or right sided pain.
[2020-01-17] VITALS (85 sets, daily range): BP systolic 122–162; BP diastolic 67–100; PULSE 78–115; RESP 15–22; TEMP 36.3–37; O2SAT 87–99; BMI 54.1
[2020-01-17] MEDS: MAGNESIUM SULF 20GM/WATER500ML 500 ML 50 MG IV CONT ×2 (07:24→17:55)
--- NOTE | 2020-01-17 07:50 | PM.IMHP ---
H&P: HPI History of Present Illness Date/Time: 01/17/20 07:50 Chief complaint: PIH Narrative: Genesis Banegas is a 25 year old female who is postop day # 5 s/p repeat C/S with twins. c/b chronic HTN and GDMA2. She came to ER yesterday pm due to palpitations and blurry vision and was treated for severe range BPs and started on magnesium. BP has been normal to mildly elevated for past several hours. She denies GODOY. mild blurry vision. No abdominal pain even around incision but c/o back pain controlled with po toradol and norco. She did have chest pain and tightness last night but none today. No N/V. Eating fine. Voiding normally. lochia scant. Moving bowels normally too. 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 Gender identity (if verbalized by the patient): Female Spiritual care concerns: No Meds Home Medications and Allergies Home Medications Medication Instructions Recorded Confirmed Type labetalol 200 mg tablet 200 mg PO Q12H #60 tablet 11/27/19 01/12/20 Rx docosahexaenoic acid 200 mg capsule 200 mg PO DAILY 12/29/19 01/12/20 History Unisom SleepMelts 25 mg PO HS PRN 01/12/20 01/12/20 History quetiapine [Seroquel] 50 mg PO HS 01/12/20 01/12/20 History hydrocodone-acetaminophen 1 tab PO Q4H PRN #30 tablet 01/14/20 Rx ketorolac 10 mg PO Q6H PRN #30 tablet 01/14/20 Rx aspirin 01/16/20 History Allergies Allergy/AdvReac Type Severity Reaction Status Date / Time amoxicillin Allergy Unknown Hives Verified 01/16/20 17:34 Penicillins Allergy Unknown Hives Verified 01/16/20 17:34 Vital Signs Vital Signs - 24 hr 01/16/20 17:26 01/16/20 17:35 01/16/20 17:48 Temperature 37.2 C Pulse Rate 126 H 101 H 94 Respiratory Rate 18 13 Blood Pressure 183/115 H 177/105 H Blood Pressure [Right Arm] Pulse Oximetry 97 98 01/16/20 18:13 01/16/20 19:11 01/16/20 19:45 Temperature 36.7 C Pulse Rate 92 91 88 Respiratory Rate 16 17 17 Blood Pressure 174/90 H 151/83 H 147/99 H Blood Pressure [Right Arm] Pulse Oximetry 98 98 100 01/16/20 19:59 01/16/20 20:00 01/16/20 20:04 Temperature Pulse Rate 89 89 Respiratory Rate Blood Pressure 157/101 H Blood Pressure [Right Arm] 157/101 H Pulse Oximetry 96 97 01/16/20 20:09 01/16/20 20:14 01/16/20 20:17 Temperature Pulse Rate 93 Respiratory Rate Blood Pressure 167/97 H Blood Pressure [Right Arm] Pulse Oximetry 96 97 01/16/20 20:19 01/16/20 20:24 01/16/20 20:29 Temperature Pulse Rate Respiratory Rate Blood Pressure Blood Pressure [Right Arm] Pulse Oximetry 98 99 98 01/16/20 20:30 01/16/20 20:32 01/16/20 20:34 Temperature Pulse Rate 93 Respiratory Rate 18 Blood Pressure 179/115 H Blood Pressure [Right Arm] Pulse Oximetry 98 01/16/20 20:39 01/16/20 20:44 01/16/20 20:47 Temperature Pulse Rate Respiratory Rate Blood Pressure Blood Pressure [Right Arm] Pulse Oximetry 97 99 99 01/16/20 20:49 01/16/20 20:59 01/16/20 21:02 Temperature Pulse Rate 92 60 Respiratory Rate Blood Pressure 146/96 H Blood Pressure [Right Arm] Pulse Oximetry 98 01/16/20 21:04 01/16/20 21:07 01/16/20 21:12 Temperature Pulse Rate 88 Respiratory Rate Blood Pressure 166/100 H Blood Pressure [Right Arm] Pulse Oximetry 99 99 01/16/20 21:15 01/16/20 21:17 01/16/20 21:22 Temperature Pulse Rate 95 92 Respiratory Rate Blood Pressure 168/99 H 155/69 H Blood Pressure [Right Arm] Pulse Oximetry 96 97 01/16/20 21:27 01/16/20 21:32 01/16/20 21:35 Temperature 36.7 C Pulse Rate 95 Respiratory Rate 12 Blood Pressure 161/84 H Blood Pressure [Right
[2020-01-17 08:25] LABS: Troponin I < 0.012 ng/mL (0.000-0.034)
[2020-01-17] MEDS: LABETALOL HCL 100 MG TABLET 300 MG PO ×2 (08:37→20:37)
[2020-01-17] MEDS: LACTATED RINGERS 1,000 ML 75 ML IV CONT (10:05)
[2020-01-17] MEDS: KETOROLAC 10 MG TABLET PO (15:49)
[2020-01-17] MEDS: QUEtiapine FUMARATE 25 MG TABLET 50 MG PO (20:38)
[2020-01-17] MEDS: clonazePAM 0.5 MG TABLET PO (20:51)
[2020-01-18] VITALS (12 sets, daily range): BP systolic 134–158; BP diastolic 70–86; PULSE 86–104; RESP 16; TEMP 36.8; O2SAT 95–98
[2020-01-18] MEDS: ONDANSETRON INJ 4 MG/2 ML VIAL IV PUSH (00:45)
[2020-01-18 06:59] LABS: Hematocrit 32.6 % (37.0-47.0); Hemoglobin 10.6 g/dL (12.0-15.0); Mean Corpuscular HGB Conc 32.5 g/dl (32-36); Mean Corpuscular Volume 89.1 fl (80-100); Mean Platelet Volume 10.8 fl (7.4-10.4); Platelet Count Result 297 k/mm3 (150-375); Red Blood Count 3.66 M/mm3 (4.2-5.4); Red Cell Distribution Width 14.6 % (11.5-14.5); White Blood Count 7.7 K/mm3 (4.5-10.0)
[2020-01-18] MEDS: KETOROLAC 10 MG TABLET PO (07:00)
[2020-01-18 07:11] LABS: Alanine Aminotransferase 52 U/L (4-35); Albumin Level 3.5 g/dL (3.5-5.1); Alkaline Phosphatase 142 U/L (38-126); Anion Gap 6 mmol/L (8-16); Aspartate Amino Transferase 42 U/L (14-36); Bilirubin,Total 0.1 mg/dL (0.2-1.3); Blood Urea Nitrogen 13 mg/dL (7-17); Calcium 8.4 mg/dL (8.4-10.2); Carbon Dioxide 29 mmol/L (22-30); Chloride 102 mmol/L (98-107); Estimated CRCL calculation 140 ml/min; Estimated Glomerular Filt Rate > 60; Glucose 90 mg/dL (65-105); Potassium 4.2 mmol/L (3.4-5.0); Sodium 137 mmol/L (137-145)
--- NOTE | 2020-01-18 07:34 | PM.OBPNVD ---
OB - PN: Subj Subjective Date/time seen: 01/18/20 07:34 Patient comments: no complaints, pain well controlled, tolerating diet, flatus present and other (Lochia less than menses. Ambulating and voiding without problems) baby status: doing well Narrative: She has GODOY behind left eye which does resolve with medication. Mildly blurry vision, which has been for several weeks. No spots in vision. No abdominal pain. Back pain controlled with meds. OB - PN: Obj Data Labs CBC & Chem 7: 01/18/20 06:39 01/18/20 06:39 Labs: Laboratory Results - last 24 hr 01/17/20 01/18/20 01/18/20 07:39 06:39 06:39 WBC 7.7 RBC 3.66 L Hgb 10.6 L Hct 32.6 L MCV 89.1 MCH 29.0 MCHC 32.5 RDW 14.6 H Plt Count 297 MPV 10.8 H Sodium 137 Potassium 4.2 Chloride 102 Carbon Dioxide 29 Anion Gap 6 L BUN 13 Creatinine 0.70 Estim Creat Clear Calc 140 Estimated GFR > 60 Glucose 90 Calcium 8.4 Total Bilirubin 0.1 L AST 42 H ALT 52 H Alkaline Phosphatase 142 H Troponin I < 0.012 Total Protein 6.0 L Albumin 3.5 OB - PN A/P Assessment and Plan (1) Pre-eclampsia, : Code(s): O14.95 - Unspecified pre-eclampsia, complicating the puerperium Status: Acute Assessment and Plan: Bp normal to mildly elevated, now off magnesium for 8-9 hours. Asymptomatic other than left postorbital GODOY that resolves with pain medication. Continue labetalol 300 mg po bid for now. Keep appointment in office tomorrow. Plan day: 6 (s/p section, doing well and ready to be discharged home) Plan: routine care, discharge home and other (Follow up in office as scheduled tomorrow) Time Spent With Patient Time: Total time spent is greater than 50% in coordination of care (as documented) at patient's floor/unit and/or counseling patient: Exam Const: General: no acute distress Resp: Auscultation: clear to auscultation bilaterally Cardio: Rate: regular rate Rhythm: regular rhythm GI: Inspection: non-distended, incision (Intact without erythema, drainage, or induration) and other (Fundus firm and nontender below umbilicus) GI Palp: Yes abdominal tenderness (appropriate) and Yes Soft to palpation Extrem: General: no edema
--- NOTE | 2020-01-18 07:37 | PM.OBDSVD ---
DS: Admitting Diagnosis Admitting Diagnosis Admitting Diagnosis: PIH DS: Discharge Diagnosis Discharge Diagnosis (1) Pre-eclampsia, : Code(s): O14.95 - Unspecified pre-eclampsia, complicating the puerperium Status: Acute OB - DS: Summary OB Procedures : PIH Mgmt OB Procedures Intrapartum: Other OB Procedures: : None Time Spent with Patient Time attestation: Total time spent providing and/or coordinating discharge services: DS: Data Data Completed and Pending Labs on day of discharge: Labs from last 24 hours 01/18/20 01/18/20 01/17/20 06:39 06:39 07:39 WBC 7.7 RBC 3.66 L Hgb 10.6 L Hct 32.6 L MCV 89.1 MCH 29.0 MCHC 32.5 RDW 14.6 H Plt Count 297 MPV 10.8 H Sodium 137 Potassium 4.2 Chloride 102 Carbon Dioxide 29 Anion Gap 6 L BUN 13 Creatinine 0.70 Estim Creat Clear Calc 140 Estimated GFR > 60 Glucose 90 Calcium 8.4 Total Bilirubin 0.1 L AST 42 H ALT 52 H Alkaline Phosphatase 142 H Troponin I < 0.012 Total Protein 6.0 L Albumin 3.5 Discharge Plan Discharge Attending physician on discharge: Myah Luther Discharging Clinician: Myah Luther Patient Disposition: Home, Self-Care Activity: may shower and pelvic rest Diet: regular Wound Care Instructions: incision open to air Patient Instructions: Antibiotic Form Stand Alone Forms: General Discharge Information Follow-up/Referrals: Myah Luther MD [Physician] - Keep Reg. Scheduled Appt. (Tomorrow 01/18) Eliud Zaman MD [Primary Care Provider] - Discharge Medications: New ketorolac 10 mg Tablet 10 mg PO Q6H PRN (Reason: Cramping) Qty: 30 RF: 0 labetalol 100 mg Tablet 300 mg PO Q12HR Qty: 0 RF: 0 Continued DHA 200 mg capsule 200 mg PO DAILY RF: 0 quetiapine [Seroquel] 50 mg tablet 50 mg PO HS RF: 0 Unisom SleepMelts 25 mg Tablet,Disintegrating 25 mg PO HS PRN (Reason: Sleep) RF: 0 hydrocodone-acetaminophen 5-325 mg Tablet 1 tab PO Q4H PRN (Reason: Moderate Pain (4-6)) Qty: 30 RF: 0 ketorolac 10 mg Tablet 10 mg PO Q6H PRN (Reason: Abdominal Cramping) Qty: 30 RF: 0 Discontinued aspirin 81 mg tablet,chewable RF: 0 labetalol 200 mg tablet 200 mg PO Q12H Qty: 60 RF: 0 Date of admission: 01/16/20 19:53 Primary Care Provider: Eliud Zaman Admitting Provider: Myah Luther Attending physician on admission: Myah Luther Condition: Stable
[2020-01-18] MEDS: LABETALOL HCL 100 MG TABLET 300 MG PO (08:32)
== END 2020-01-18 09:18 | disposition home or self-care (01) ==
LOC: ANHED 19:54 → ANHOBPP 19:58
PROVIDERS: Admitting Provider Obstetrics & Gynecology; Emergency Provider Emergency Medicine; PCP Family Medicine; Visit Provider Obstetrics & Gynecology
DX: O11.5 Pre-existing hypertension with pre-eclampsia, complicating the puerperium (principal); O10.93 Unspecified pre-existing hypertension complicating the puerperium; Z79.82 Long term (current) use of aspirin; Z79.899 Other long term (current) drug therapy; Z87.891 Personal history of nicotine dependence
CPT/HCPCS: 36415; 71045; 80053; 81001; 83880; 84484; 84550; 85025; 85027; 85380; 85610; 85730; 93005; 96361; 96365; 96366; 96375; 96376; 99285; A9270; G0378; J2405; J3475; J7120

== ENCOUNTER 2020-05-05 15:20 | Emergency (ER) | payer OTHER, BC, MEDICAID, SELFPAY ==
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
[2020-05-05 15:20] VITALS: BP 155/103; PULSE 63; RESP 18; TEMP 36.4; O2SAT 99
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
[2020-05-05] MEDS: KETOROLAC (*BKC) 60 MG/2 ML VIAL IM (16:06)
[2020-05-05] MEDS: diazePAM (*CRX) 5 MG TABLET PO (16:15)
== END 2020-05-05 16:53 | disposition home or self-care (01) ==
PROVIDERS: Emergency Provider Emergency Medicine; PCP Family Medicine
DX: S16.1XXA Strain of muscle, fascia and tendon at neck level, initial encounter (principal); S40.021A Contusion of right upper arm, initial encounter; F90.9 Attention-deficit hyperactivity disorder, unspecified type; F41.1 Generalized anxiety disorder; E78.5 Hyperlipidemia, unspecified; E03.9 Hypothyroidism, unspecified; Z87.891 Personal history of nicotine dependence; V43.62XA Car passenger injured in collision with other type car in traffic accident, initial encounter
CPT/HCPCS: 72125; 73060; 96372; 99284; A9270; J1885

== ENCOUNTER 2020-10-09 13:35 | Emergency (ER) | payer OTHER, SELFPAY ==
--- NOTE | ~2020-10-09 | XR_ITS ---
EXAMINATION: XR chest 2V DATE: 10/09/2020 14:13 INDICATION: Hypertension. Numbness in hands and feet. TECHNIQUE: Frontal and lateral views of the chest were obtained. COMPARISON: Chest single view 01/16/2020 FINDINGS: There is no pneumonia, pleural effusion, or pneumothorax. Cardiomegaly is noted. IMPRESSION: 1. Cardiomegaly. Reviewed, dictated and finalized at location B. IMPRESSION: 1. Cardiomegaly.
[2020-10-09 13:43] VITALS: BP 181/102; PULSE 90; RESP 16; TEMP 36.4; O2SAT 100
--- NOTE | 2020-10-09 13:49 | ECG_ITS ---
Measurements Intervals [place] Rate: 81 P: 42 NV: 148 QRS: 33 QRSD: 95 T: 29 QT: 377 QTc: 440 Interpretive Statements SINUS RHYTHM NONSPECIFIC T-WAVE ABNORMALITY- ANTERIOR LEADS BORDERLINE ECG Electronically Signed On 10-09-2020 14:09:38 CDT by Eran Isidro D.O.
[2020-10-09 13:59] LABS: Basophils Percent Auto 0.3 % (0.2-1.2); Eosinophils Absolute Auto 0.1 K/mm3 (0-0.3); Eosinophils Percent Auto 0.8 % (0-4.4); Hematocrit 42.4 % (37.0-47.0); Hemoglobin 14.5 g/dL (12.0-15.0); Immature Granulocyte Absolute 0.01 K/mm3 (0.00-0.031); Immature Granulocyte Percent A 0.1 % (0-0.5); Lymphocytes Absolute Auto 3.82 K/mm3 (0.9-3.2); Lymphocytes Percent Auto 49.2 % (18.3-44.2); Mean Corpuscular HGB Conc 34.2 g/dl (32-36); Mean Corpuscular Hemoglobin 28.4 pg (26-34); Mean Platelet Volume 10.6 fl (7.4-10.4); Monocytes Absolute Auto 0.4 K/mm3 (0.1-0.6); Monocytes Percent Auto 5.4 % (2.6-8.5); Neutrophils Absolute Auto 3.4 K/mm3 (1.3-6.7); Neutrophils Percent Auto 44.2 % (45.5-73.1); Platelet Count Result 298 k/mm3 (150-375); Red Blood Count 5.11 M/mm3 (4.2-5.4); Red Cell Distribution Width 12.7 % (11.5-14.5); White Blood Count 7.8 K/mm3 (4.5-10.0)
[2020-10-09 14:08] LABS: INR 0.9; Prothrombin Time 12.7 Seconds (11.1-14.7)
[2020-10-09 14:09] LABS: Partial Thromboplastin Time 28.9 SECONDS (22.3-36.8)
[2020-10-09 14:11] LABS: Anion Gap 10 mmol/L (8-16); Blood Urea Nitrogen 15 mg/dL (7-17); Calcium 10.1 mg/dL (8.4-10.2); Carbon Dioxide 25 mmol/L (22-30); Chloride 102 mmol/L (98-107); Estimated CRCL calculation 132 ml/min; Estimated Glomerular Filt Rate > 60; Glucose 93 mg/dL (65-105); Potassium 3.6 mmol/L (3.4-5.0); Sodium 137 mmol/L (137-145)
[2020-10-09 14:21] LABS: Troponin I < 0.012 ng/mL (0.000-0.034)
[2020-10-09 14:23] VITALS: BP 134/82; PULSE 88; RESP 21; O2SAT 98
[2020-10-09] MEDS: KETOROLAC 30 MG/ML VIAL (*BKC) IV PUSH (15:36)
[2020-10-09] MEDS: LORazepam INJ (*CRX) 2 MG/ML VIAL 1 MG IV PUSH (15:38)
[2020-10-09] MEDS: SODIUM CHLORIDE 0.9% IV 1,000 ML 999 ML IV CONT (15:39)
[2020-10-09 15:41] VITALS: BP 133/82; PULSE 69; RESP 15; O2SAT 94
[2020-10-09 16:06] VITALS: TEMP 36.4
[2020-10-09 16:11] VITALS: BP 104/60; PULSE 62; RESP 25; O2SAT 98
--- NOTE | 2020-10-09 16:29 | ED.GENADULT ---
HPI - General Adult General Chief complaint: Recheck/Abnormal Lab/Rx Stated complaint: cp Time Seen by Provider: 10/09/20 14:17 Source: patient, family and RN notes reviewed Mode of arrival: ambulatory Limitations: no limitations History of Present Illness HPI narrative: Patient is a 25-year-old female who presents with family for evaluation of described panic attack with tingling in the extremities anxiety chest pain shortness of breath patient has had history of anxiety takes anxiolytics at home primary care has been attempting to treat her for desire to lose weight with new diet medications noting that on Wednesday she started these medications and has since not felt right patient also has been eating irregularly patient on arrival to emergency department is very anxious presents with her father patient is tearful with multiple stressors patient denies illness vomiting diarrhea Related Data Home Medications Medication Instructions Recorded Confirmed drospirenone (contraceptive) 10/09/20 [Slynd] Allergies Allergy/AdvReac Type Severity Reaction Status Date / Time amoxicillin Allergy Unknown Hives Verified 10/09/20 14:23 Penicillins Allergy Unknown Hives Verified 10/09/20 14:23 Review of Systems Review of Systems: All systems reviewed & are unremarkable except as noted in HPI and below PMFSH Past Medical History Medical History Attention-deficit hyperactivity disorder, unspecified type Generalized anxiety disorder Gestational diabetes mellitus (GDM) during childbirth controlled on oral hypoglycemic therapy Hyperlipidemia Hypertension complicating in third trimester Hypothyroid Personal history of traumatic brain injury Surgical History Surgical History Previous section 01/12/20, [facility], female, 37w4d, 7#8, GDM, CHTN, Twin 01/12/20, [facility], male, 37w4d, 7#13, GDM, CHTN, Twin Social History Social History Substance use: former 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 HEAD: Normocephalic, atraumatic. EYES: PERRLA and EOMI. ENT: Nares clear, no rhinorrhea or epistaxis. Mucous membranes moist. NECK: Supple. No adenopathy or masses. CHEST: Clear to auscultation. No respiratory distress. No wheezes rales or rhonchi HEART: Regular rate and rhythm. No murmur heard. Normal peripheral pulses. ABDOMEN: Soft, nontender, nondistended EXTREMITIES: Normal range of motion. No edema. SKIN: Warm, dry, no rash. NEURO: No focal deficits. Alert and oriented x3. PSYCH: Patient acutely anxious Course Course Emergency Course: Patient in the room at this time advised on anxiety stressors will be discharged with outpatient follow-up with primary care there are no high risk changes in her evaluation hemodynamically stable ABCs and vital signs intact and stable Consultations Consultation #1: Discussed case with patient's primary care who would like her to contact them tomorrow to set up for reevaluation and discontinue taking the naltrexone Date: 10/09/20 Time: 17:05 Vital Signs Vital signs: Vital Signs Temperature 97.5 F L 10/09/20 13:43 Pulse Rate 90 10/09/20 13:43 Respiratory Rate 16 10/09/20 13:43 Blood Pressure 181/102 H 10/09/20 13:43 Pulse Oximetry 100 10/09/20 13:43 Temperature 97.5 F L 10/09/20 16:06 Pulse Rate 62 10/09/20 16:11 Respiratory Rate 25 H 10/09/20 16:11 Blood Pressure 104/60 10/09/20 16:11 Pulse Oximetry 98 10/09/20 16:11 Medical Decision Making [facility] Narrative Medical decision making narrative: Patient with unremarkable evaluation she is anxious was given fluids and anxiolytics in th
[2020-10-09 16:37] LABS: Add Urine Microscopic? YES; Appearance Urine Cloudy (Clear); Bacteria Urine Trace /hpf; Bilirubin Urine Negative (Negative); Blood Urine Negative (Negative); Color Urine Yellow (Yellow); Glucose Urine UA Negative (Negative); Ketones Urine Negative (Negative); Leukocyte Esterase Ur Trace LEU/UL (Negative); Mucus Urine Rare /lpf; Nitrate Urine Negative (Negative); Protein Urine Negative (Negative); Specific Grav Ur 1.008 (1.001-1.035); Squamous Epithelial Cell Urine Moderate /hpf (Few); Urobilinogen Urine Negative mg/dL (<2.0); WBC Urine 0-3 /hpf
[2020-10-09 17:12] VITALS: BP 136/67; PULSE 85; RESP 13; O2SAT 98
== END 2020-10-09 17:13 | disposition home or self-care (01) ==
PROVIDERS: Emergency Medicine Emergency Medical Services; Emergency Provider Emergency Medicine; PCP Family Medicine
DX: F41.9 Anxiety disorder, unspecified (principal); R07.9 Chest pain, unspecified; F90.9 Attention-deficit hyperactivity disorder, unspecified type; E03.9 Hypothyroidism, unspecified
CPT/HCPCS: 36415; 71046; 80048; 81001; 81025; 84484; 85025; 85610; 85730; 93005; 96361; 96374; 96375; 99284; J1885; J2060; J7030

== ENCOUNTER 2021-01-16 10:07 | Outpatient (CLI) | payer OTHER, SELFPAY ==
--- NOTE | ~2021-01-16 | US_ITS ---
EXAMINATION: US breast BI complete HISTORY: Diffuse bilateral breast pain TECHNIQUE: Complete bilateral breast ultrasound is performed including all four quadrants and the sub areolar locations. FINDINGS: There is no evidence of focal abnormal cystic or solid mass in the vicinity of the patient' s pain in either breast. IMPRESSION: No specific sonographic correlate is identified for the patient's breast pain. Further evaluation at this time should be based on clinical assessment. Continued follow-up physical examination is recomme nded. BI-RADS Category 1: Negative Reviewed, dictated and finalized at location A. IMPRESSION: No specific sonographic correlate is identified for the patient's breast pain. Further evaluation at this time should be based on clinical assessment. Continu ed follow-up physical examination is recommended. BI-RADS Category 1: Negative
== END 2021-01-16 10:08 | disposition home or self-care (01) ==
LOC: ANHIMG 10:08
PROVIDERS: PCP Family Medicine; Visit Provider Advanced Practice Midwife
DX: N64.4 Mastodynia (principal)
CPT/HCPCS: 76641

== ENCOUNTER 2021-11-19 14:21 | Emergency (ER) | payer OTHER, SELFPAY ==
--- NOTE | 2021-11-19 14:25 | ED.URI ---
HPI - URI/Sore Throat General Chief Complaint: Upper Respiratory Infection Stated Complaint: no taste or smell runny nose Time Seen by Provider: 11/19/21 14:25 Source: patient and RN notes reviewed History of Present Illness HPI Narrative: Patient is a 26-year-old female who presents the urgent care with complaints of loss of taste and smell, runny nose and sinus congestion. Patient states that her symptoms started 5 days ago and she has not taken anything [id number] for her symptoms. Patient denies any fever, nausea, vomiting, known exposures to illness. Patient states that her primary care doctor refused to see her in the office for testing because she was ill . Patient states that her job is requiring her to come back with a negative COVID test, flu swab and strep. Patient is extremely demanding and having nose test facilitated. Patient denies of any other acute complaints. No acute distress noted. Patient aware of the plan of care. Some parts of this dictation were generated by voice recognition software and may contain typographical and/or grammatical inaccuracies. Related Data Home Medications Medication Instructions Recorded Confirmed drospirenone (contraceptive) 4 mg 10/09/20 (28) tablet (Slynd) Allergies Allergy/AdvReac Type Severity Reaction Status Date / Time amoxicillin Allergy Unknown Hives Verified 07/25/21 16:17 Penicillins Allergy Unknown Hives Verified 07/25/21 16:17 Review of Systems Review of Systems: CONSTITUTIONAL: Denies fever, chills, or sweats. EYES: Denies visual changes, redness, or discharge. ENT: Reports of sinus congestion, rhinorrhea and loss of taste and smell CARDIOVASCULAR: Denies chest pain, palpitations, or edema. RESPIRATORY: Denies cough or dyspnea. GASTROINTESTINAL: Denies abdominal pain, nausea, vomiting, or diarrhea. GENITOURINARY: Denies dysuria or hematuria. SKIN: Denies rash or itching. MUSCULOSKELETAL: Denies back pain, joint pain, or myalgia. NEUROLOGIC: Denies headache, numbness, or weakness. All other systems reviewed are negative, except as documented in HPI. 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 HEAD: normocephalic, atraumatic. EYES: PERRL. Sclera clear/white. Vision is grossly intact. EARS: External ears normal, auditory canals clear and without drainage, TMs normal without perforation. Hearing grossly intact. NOSE: External nose normal with no obvious nasal discharge. Bilateral erythemic nares with clear rhinorrhea THROAT: Mucous membranes moist, posterior pharynx clear. Moderate postnasal drainage NECK: Neck supple, non-tender without lymphadenopathy, masses or thyromegaly. CARDIOVASCULAR: Regular rate and rhythm without murmurs, gallops, or rubs. RESPIRATORY: Clear to auscultation. Breath sounds equal bilaterally. No wheezes, rales, or rhonchi. SKIN: warm, intact with no suspicious lesions or rash, good texture and turgor. NEURO: awake, alert, and oriented to person, place and time. There were no obvious
[2021-11-19 14:41] VITALS: BP 148/103; PULSE 102; RESP 16; TEMP 37; O2SAT 100
[2021-11-19 21:06] LABS: SARS-CoV-2 RNA PCR Negative
== END 2021-11-19 14:47 | disposition home or self-care (01) ==
PROVIDERS: Emergency Provider Nurse Practitioner Family; PCP Family Medicine
DX: J32.9 Chronic sinusitis, unspecified (principal); Z20.822 Contact with and (suspected) exposure to COVID-19; E78.5 Hyperlipidemia, unspecified; E03.9 Hypothyroidism, unspecified
CPT/HCPCS: 87081; 87804; 87880; 99213; C9803; G0463; U0003; U0005

== ENCOUNTER → 2022-01-06 08:35 | Outpatient (CLI) | payer OTHER, SELFPAY ==
--- NOTE | ~2022-01-06 | US_ITS ---
EXAMINATION: US soft tissue head and neck DATE: 01/06/2022 09:03 INDICATION: Localized enlarged lymph nodes. TECHNIQUE: Multiple grayscale and Doppler ultrasound images of the neck were obtained. COMPARISON: Thyroid ultrasound 10/13/2015 FINDINGS: There are normal lymph nodes in the right neck in the patient's area of concern. In the rig ht thyroid lobe, there is a 2.0 cm predominantly solid, hypoechoic, wider than tall nodule with dana h margin and peripheral calcifications (TI-RADS TR4), decreased in size from 10/13/15 and with benign biopsy results on 10/22/15. IMPRESSION: 1. No lymphadenopathy. Reviewed, dictated and finalized at location A. IMPRESSION: 1. No lymphadenopathy.
== END ==
PROVIDERS: PCP Physician Assistant; Visit Provider Physician Assistant
DX: R59.0 Localized enlarged lymph nodes (principal)
CPT/HCPCS: 72110; 76536

== ENCOUNTER 2022-01-06 10:45 | Outpatient (CLI) | payer OTHER, SELFPAY ==
--- NOTE | ~2022-01-06 | XR_ITS ---
EXAM: XR lumbar spine min 4V DATE: 01/06/2022 11:01 HISTORY: M54.41right side lowback [id number] after pop during crossfit . COMPARISON: None available. FINDINGS: Mild rotatory scoliosis. 5 nonrib-bearing lumbar-type vertebral bodies. Pedicles intact. No rmal vertebral body alignment. Vertebral body heights preserved. Disc spaces maintained. Normal facet s and posterior elements. No fracture or dislocation. IMPRESSION: No acute fracture or traumatic malalignment in the lumbar spine. Reviewed, dictated and finalized at location K.
== END 2022-01-06 10:46 | disposition home or self-care (01) ==
PROVIDERS: PCP Physician Assistant; Visit Provider Physician Assistant
DX: M54.41 Lumbago with sciatica, right side (principal)
CPT/HCPCS: 72110

== ENCOUNTER 2022-04-04 06:37 | Emergency (ER) | payer OTHER, SELFPAY ==
--- NOTE | ~2022-04-04 | CT_ITS ---
EXAMINATION: CT abdomen pelvis w con DATE: 04/04/2022 08:11 INDICATION: Upper abdominal pain, nausea TECHNIQUE: Computed tomography (CT) of the abdomen and pelvis was performed with 100 CC Omnipaque 350 intravenous contrast. Automated exposure control and iterative reconstruction technique were employe d. Exam dose: 1158.26 mGy-cm total exam DLP. COMPARISON: 06/09/2016 CT abdomen pelvis FINDINGS: The lung bases are clear. Heart size is within normal range. No pericardial or pleural effu garry. The liver, gallbladder, bile ducts, spleen, pancreas, pancreatic duct, and adrenal glands and kidneys are normal. Normal caliber of the abdominal aorta. No intraperitoneal or retroperitoneal or pelvic m ass lesion or adenopathy or ascites. The uterus, ovaries are unremarkable. The urinary bladder is evacuated. Normal appendix, which extends underneath the posterior aspect of the right hepatic lobe. Some nondil ated fluid containing small bowel segments and occasional small bowel air-fluid levels which may repr esent enteritis or mild adynamic ileus. There is no apparent bowel obstruction. No intraperitoneal fr ee air. Small supraumbilical fat-containing ventral abdominal wall hernia. Small fat-containing umbilical her ab. IMPRESSION: Nondilated fluid containing small bowel and occasional small bowel air-fluid levels, whi ch may be due to enteritis or mild adynamic ileus Normal appendix No bowel obstruction or free air Reviewed, dictated and finalized at [facility]. Reviewed, dictated and finalized at location A. IMPRESSION: Nondilated fluid containing small bowel and occasional small bowel air-fluid levels, which may be due to enteritis or mild adynamic ileus Normal appendix No bowel obstruction or free air
[2022-04-04 06:41] VITALS: BP 160/114; PULSE 96; RESP 18; TEMP 36.6; O2SAT 100
--- NOTE | 2022-04-04 07:13 | ED.GENADULT ---
HPI - General Adult General Chief complaint: Abdominal Pain Stated complaint: epigastric pain Time Seen by Provider: 04/04/22 07:01 Source: RN notes reviewed History of Present Illness HPI narrative: Patient presents emergency room from home for abdominal pain. Patient states that abdominal pain began approximately 2 AM this morning. The pain is located across the upper abdomen and radiates around to the back she states this feels like a bandlike pressure across her upper abdomen. States that it was previously associate with some mild nausea but she states she has no nausea at this time she denies any vomiting. States she has been having some diarrhea she denies any fevers or chills. Patient states her last menstrual cycle was approximately 6 weeks ago Related Data Home Medications Medication Instructions Recorded Confirmed drospirenone (contraceptive) 4 mg 10/09/20 01/14/22 (28) tablet (Slynd) Allergies Allergy/AdvReac Type Severity Reaction Status Date / Time amoxicillin Allergy Unknown Hives Verified 01/14/22 14:39 Penicillins Allergy Unknown Hives Verified 01/14/22 14:39 Review of Systems Review of Systems: Gen.: Denies fevers or chills ENT: Denies congestion Respiratory: Denies shortness of breath or cough CV: Denies chest pain or palpitations GI: See HPI denies burning, urgency, frequency or hematuria Musculoskeletal: Denies back pain or muscle pain Neuro: Denies numbness, tingling, weakness or focal weakness Skin: Denies rash Except as documented, all other systems reviewed and negative PMF Past Medical History Medical History Attention-deficit hyperactivity disorder, unspecified type Generalized anxiety disorder Gestational diabetes mellitus (GDM) during childbirth controlled on oral hypoglycemic therapy Hyperlipidemia Hypertension complicating in third trimester Hypothyroid Personal history of traumatic brain injury Surgical History Surgical History Previous section 01/12/20, LTCS, female, 37w4d, 7#8, GDM, CHTN, Twin 01/12/20, LTCS, male, 37w4d, 7#13, GDM, CHTN, Twin Family History Family History Sibling Acute Crohn's disease Unknown Heart disease Unknown Obesity Social History Social History Social History: Caffeine-none Smoking status: Never smoker Alcohol intake: never Substance use: former 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 No clubbing, cyanosis or edema. NEURO: Awake and alert. Following commands, speech normal, no focal deficits SKIN:: Warm, dry. Normal Color PSYCHIATRIC: Normal affect/mood Course Course Emergency Course: Patient she is feeling better this time able to eat and drink in ED with no emesis Patient states that they are feeling much better at this time. States abdominal pain has resolved. Repeat abdominal exam shows the patient's abdomen to be soft and nontender. Discussed with patient results of workup and diagnosis. Discussed need for follow-up with primary care physician, reasons to return to the emergency department in proper use of medication. Patient understands and agrees to current treatment plan Vital Signs Vital signs: Vi
[2022-04-04 07:28] LABS: Basophils Percent Auto 0.2 % (0.2-1.2); Eosinophils Absolute Auto 0.1 K/mm3 (0-0.3); Hematocrit 41.4 % (37.0-47.0); Hemoglobin 14.2 g/dL (12.0-15.0); Immature Granulocyte Absolute 0.03 K/mm3 (0.00-0.031); Immature Granulocyte Percent A 0.4 % (0-0.5); Lymphocytes Absolute Auto 2.42 K/mm3 (0.9-3.2); Lymphocytes Percent Auto 29.9 % (18.3-44.2); Mean Corpuscular HGB Conc 34.3 g/dl (32-36); Mean Corpuscular Hemoglobin 28.9 pg (26-34); Mean Corpuscular Volume 84.3 fl (80-100); Mean Platelet Volume 10.2 fl (7.4-10.4); Monocytes Absolute Auto 0.4 K/mm3 (0.1-0.6); Monocytes Percent Auto 4.9 % (2.6-8.5); Neutrophils Absolute Auto 5.2 K/mm3 (1.3-6.7); Neutrophils Percent Auto 63.6 % (45.5-73.1); Platelet Count Result 321 k/mm3 (150-375); Red Blood Count 4.91 M/mm3 (4.2-5.4); Red Cell Distribution Width 12.5 % (11.5-14.5); White Blood Count 8.1 K/mm3 (4.5-10.0)
[2022-04-04] MEDS: SODIUM CHLORIDE 0.9% IV 1,000 ML 999 ML IV CONT (07:29)
[2022-04-04] MEDS: FAMOTIDINE 20 MG/2 ML VIAL IV PUSH (07:29)
[2022-04-04 07:36] LABS: Alanine Aminotransferase 25 U/L (6-35); Albumin Level 4.9 g/dL (3.5-5.1); Alkaline Phosphatase 101 U/L (38-126); Anion Gap 11 mmol/L (8-16); Aspartate Amino Transferase 27 U/L (14-36); Bilirubin,Total 0.6 mg/dL (0.2-1.3); Blood Urea Nitrogen 16 mg/dL (7-17); Calcium 9.8 mg/dL (8.4-10.2); Carbon Dioxide 23 mmol/L (22-30); Chloride 106 mmol/L (98-107); Estimated Glomerular Filt Rate > 60; Glucose 111 mg/dL (65-110); Lipase 54 U/L (23-300); Sodium 140 mmol/L (137-145)
[2022-04-04 07:50] LABS: Appearance Urine Clear (Clear); Bilirubin Urine Negative (Negative); Blood Urine Negative (Negative); Color Urine Yellow (Yellow); Glucose Urine UA Negative (Negative); Ketones Urine Negative (Negative); Leukocyte Esterase Ur Trace LEU/UL (Negative); Nitrate Urine Negative (Negative); Protein Urine Negative (Negative); Specific Grav Ur >= 1.030 (1.001-1.035); Urobilinogen Urine 0.2 mg/dL (<2.0)
[2022-04-04 07:54] LABS: Add Urine Microscopic? YES; Squamous Epithelial Cell Urine Few /hpf (Few); WBC Urine 0-3 /hpf
[2022-04-04] MEDS: ONDANSETRON INJ 4 MG/2 ML VIAL IV PUSH (08:41)
[2022-04-04] MEDS: DICYCLOMINE HCL INJ 20 MG/2 ML VIAL IM (08:48)
--- NOTE | 2022-04-04 08:53 | PC.NURSE ---
Patient given Su Mist and saltine crackers.
[2022-04-04 09:20] VITALS: BP 155/90; PULSE 71; RESP 16; O2SAT 99
[2022-04-04 09:23] VITALS: BP 155/90; PULSE 82; RESP 18; O2SAT 98
== END 2022-04-04 09:24 | disposition home or self-care (01) ==
PROVIDERS: General Practice; Emergency Provider Emergency Medicine; PCP Family Medicine
DX: R10.13 Epigastric pain (principal); R11.2 Nausea with vomiting, unspecified; R19.7 Diarrhea, unspecified; E78.5 Hyperlipidemia, unspecified; E03.9 Hypothyroidism, unspecified
CPT/HCPCS: 36415; 74177; 80053; 81001; 81025; 83690; 85025; 96361; 96372; 96374; 96375; 99284; J0131; J0500; J2405; J7030; Q9967

== ENCOUNTER 2023-01-12 15:04 | Outpatient (CLI) | payer OTHER, SELFPAY ==
[2023-01-12 20:32] LABS: Basophils Percent Auto 0.4 % (0.2-1.2); Eosinophils Absolute Auto 0.1 K/mm3 (0-0.3); Eosinophils Percent Auto 0.7 % (0-4.4); Hematocrit 40.7 % (37.0-47.0); Hemoglobin 13.5 g/dL (12.0-15.0); Immature Granulocyte Absolute 0.02 K/mm3 (0.00-0.031); Immature Granulocyte Percent A 0.3 % (0-0.5); Lymphocytes Absolute Auto 3.47 K/mm3 (0.9-3.2); Lymphocytes Percent Auto 48.7 % (18.3-44.2); Mean Corpuscular HGB Conc 33.2 g/dl (32-36); Mean Corpuscular Hemoglobin 29.5 pg (26-34); Mean Corpuscular Volume 88.9 fl (80-100); Mean Platelet Volume 10.6 fl (7.4-10.4); Monocytes Absolute Auto 0.3 K/mm3 (0.1-0.6); Monocytes Percent Auto 4.4 % (2.6-8.5); Neutrophils Absolute Auto 3.2 K/mm3 (1.3-6.7); Neutrophils Percent Auto 45.5 % (45.5-73.1); Platelet Count Result 308 k/mm3 (150-375); Red Blood Count 4.58 M/mm3 (4.2-5.4); Red Cell Distribution Width 12.6 % (11.5-14.5); White Blood Count 7.1 K/mm3 (4.5-10.0)
[2023-01-12 22:06] LABS: LDL Cholesterol Direct 136 mg/dL
[2023-01-13 01:33] LABS: Anion Gap 6 mmol/L (8-16); Blood Urea Nitrogen 13 mg/dL (7-17); Calcium 9.4 mg/dL (8.4-10.2); Carbon Dioxide 29 mmol/L (22-30); Chloride 104 mmol/L (98-107); Cholesterol 246 mg/dL (0-200); Estimated Glomerular Filt Rate > 60; Glucose 87 mg/dL (65-110); HDL Direct 58 mg/dL; Potassium 4.1 mmol/L (3.4-5.0); Sodium 139 mmol/L (137-145); Triglycerides 103 mg/dL (<150)
== END 2023-01-12 15:05 | disposition home or self-care (01) ==
LOC: ANHGOSHLAB 15:06
PROVIDERS: PCP Family Medicine; Visit Provider Nurse Practitioner Family
DX: R21 Rash and other nonspecific skin eruption (principal); R79.9 Abnormal finding of blood chemistry, unspecified
CPT/HCPCS: 36415; 80048; 80061; 84443; 85025

== ENCOUNTER 2024-06-22 13:08 | Emergency (ER) | payer OTHER, SELFPAY ==
--- NOTE | ~2024-06-22 | CT_ITS ---
EXAMINATION: CT abdomen pelvis w con DATE: 06/22/2024 14:38 INDICATION: Abdominal pain TECHNIQUE: Computed tomography (CT) of the abdomen and pelvis was performed with 100 mL Omnipaque-350 intravenous contrast. Automated exposure control and iterative reconstruction technique were employe d. The dose-length product was 467.35 mGy-cm. COMPARISON: 04/04/2022 FINDINGS: Lung bases are clear. Heart size is normal. No pericardial or pleural effusion. Focal hepatic steatos is along the ligamentum teres. Gallbladder, spleen, pancreas, bilateral adrenal glands and kidneys ar e normal. Bowels including the appendix are normal. Bladder, retroverted uterus and bilateral ovaries are normal. No free intraperitoneal gas or fluid. No pathologically enlarged abdominal or pelvic lym phadenopathy. Mild lumbar and lower thoracic spondylosis. IMPRESSION: 1. No acute intra-abdominal/pelvic process. Reviewed, dictated and finalized at location A. H DES[employer]ER
[2024-06-22 13:09] VITALS: BP 154/101; PULSE 80; RESP 14; TEMP 36.4; O2SAT 99
[2024-06-22 13:30] VITALS: BP 138/105; PULSE 87; RESP 15; O2SAT 98
[2024-06-22] MEDS: SODIUM CHLORIDE 0.9% IV 1,000 ML 999 ML IV CONT (13:45)
[2024-06-22] MEDS: ONDANSETRON INJ 4 MG/2 ML VIAL IV PUSH (13:46)
[2024-06-22] MEDS: KETOROLAC 15 MG/ML VIAL (*BKC) IV PUSH (13:48)
[2024-06-22 13:53] LABS: Basophils Absolute Auto 0.01 K/mm3 (0.00-0.10); Basophils Percent Auto 0.1 % (0.0-1.0); Eosinophils Absolute Auto 0.03 K/mm3 (0.02-0.50); Eosinophils Percent Auto 0.4 % (1.0-6.0); Hematocrit 42.2 % (35.0-49.0); Hemoglobin 14.5 g/dL (12.0-15.0); Immature Granulocyte Absolute 0.04 K/mm3 (0.00-0.00); Immature Granulocyte Percent A 0.5 % (0.0-0.0); Lymphocytes Absolute Auto 1.25 K/mm3 (1.10-4.50); Lymphocytes Percent Auto 14.8 % (18.0-42.0); Mean Corpuscular HGB Conc 34.4 g/dL (32-36); Mean Corpuscular Hemoglobin 29.7 pg (27.0-31.0); Mean Corpuscular Volume 86.5 fL (78.0-102.0); Mean Platelet Volume 10.3 fl (9.2-11.8); Monocytes Absolute Auto 0.58 K/mm3 (0.10-0.90); Monocytes Percent Auto 6.9 % (2.0-11.0); Neutrophils Absolute Auto 6.52 K/mm3 (1.70-7.20); Neutrophils Percent Auto 77.3 % (50.0-70.0); Platelet Count Result 288 K/mm3 (150-420); Red Blood Count 4.88 M/mm3 (4.20-5.40); Red Cell Distribution Width 12.1 % (11.6-14.4); White Blood Count 8.4 K/mm3 (4.8-10.8)
[2024-06-22 13:54] LABS: Add Urine Microscopic? YES; Bilirubin Urine 1+ (Negative); Blood Urine Negative (Negative); Color Urine Yellow (Yellow); Glucose Urine UA Negative (Negative); Ketones Urine 2+ (Negative); Leukocyte Esterase Ur Negative LEU/UL (Negative); Nitrate Urine Negative (Negative); Protein Urine Trace (Negative); Specific Grav Ur >= 1.030 (1.010-1.020); pH Urine 5.5 (5.0-8.0)
[2024-06-22 13:56] LABS: Pregnancy On Board Control Positive; Urine Pregnancy Test Negative
[2024-06-22 14:00] VITALS: BP 136/100; PULSE 82; RESP 17; O2SAT 99
[2024-06-22 14:00] LABS: Appearance Urine Cloudy (Clear); RBC Urine None seen /hpf (0-2); WBC Urine None seen /hpf (0-3)
[2024-06-22 14:01] LABS: Bacteria Urine 1+ /hpf; Mucus Urine Heavy /lpf; Squamous Epithelial Cell Urine Few /hpf (Few)
[2024-06-22 14:09] LABS: SARS-CoV-2 RNA PCR Negative (Negative)
[2024-06-22 14:10] LABS: Alanine Aminotransferase 23 U/L (14-59); Albumin Level 4.2 g/dL (3.4-5.0); Alkaline Phosphatase 85 U/L (46-116); Anion Gap 15 mmol/L (4-12); Aspartate Amino Transferase 15 U/L (15-37); Blood Urea Nitrogen 9 mg/dL (7-18); Calcium 9.3 mg/dL (8.5-10.1); Carbon Dioxide 25 mmol/L (21-32); Chloride 100 mmol/L (98-108); Estimated CRCL calculation 99 ml/min; Estimated Glomerular Filt Rate > 60; Glucose 92 mg/dL (70-99); Lipase 15 U/L (16-77); Osmolality Calculated 288 mOsm/kg (285-295); Sodium 140 mmol/L (136-145); Total Protein 7.7 g/dL (6.4-8.2)
[2024-06-22 14:10] LABS: Influenza A QL RT-PCR Negative (Negative); Influenza B QL RT-PCR Negative (Negative); RSV RNA, RT-PCR Negative (Negative)
[2024-06-22 14:15] LABS: Lactic Acid Reflex 0.7 mmol/L (0.4-2.0)
[2024-06-22 14:30] VITALS: BP 104/84; PULSE 75; RESP 16; O2SAT 99
--- NOTE | 2024-06-22 14:36 | PC.NURSE ---
patient back in room from Ct.
[2024-06-22] MEDS: POTASSIUM BICARBONATE 25 MEQ TABEF 50 MEQ PO (14:39)
[2024-06-22 15:00] VITALS: BP 129/84; PULSE 75; RESP 17; O2SAT 98
--- NOTE | 2024-06-22 15:00 | ED_ITS ---
HPI - Abdominal Pain General Chief Complaint: Upper Respiratory Infection Stated Complaint: vomiting Time Seen by Provider: 06/22/24 13:27 Source: patient Mode of arrival: ambulatory Limitations: no limitations History of Present Illness HPI narrative: This is a 29-year-old female with no significant past medical history except for some issues with depression that she takes medication for, presents with a 2 day history of nausea vomiting and abdominal pain periumbilical and suprapubic with nausea vomiting some diarrhea with no blood in her stool no fever chills no shortness of breath no nasal congestion. MD elicited complaint: abdominal pain Onset (ago): day(s) Severity: moderate Quality: cramping and aching Radiation: suprapubic Related Data Allergies Allergy/AdvReac Type Severity Reaction Status Date / Time amoxicillin Allergy Unknown Hives Verified 06/22/24 13:09 Penicillins Allergy Unknown Hives Verified 06/22/24 13:09 Review of Systems 2 Review of Systems: All systems reviewed & are unremarkable except as noted in HPI and below PMFSH Past Medical History Medical History Hyperlipidemia Hypothyroid Hypertension complicating in third trimester Gestational diabetes mellitus (GDM) during childbirth controlled on oral hypoglycemic therapy Generalized anxiety disorder Attention-deficit hyperactivity disorder, unspecified type Personal history of traumatic brain injury Surgical History Surgical History Previous section 01/12/20, LTCS, female, 37w4d, 7#8, GDM, CHTN, Twin 01/12/20, LTCS, male, 37w4d, 7#13, GDM, CHTN, Twin Family History Family History Sibling Acute Crohn's disease Unknown Heart disease Unknown Obesity Social History Social History Social History: Caffeine-none Smoking status: Never smoker Alcohol intake: never Substance use: former 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 Lack of Transportation: No Lack of Food: Never True Current Housing: I Have Housing Concerned About Future Housing: No Difficulty Paying Gas/Electric Bills: No Difficulty Paying for Meds: No Currently Unemployed: No Education: Associate Degree Difficulty w/ Childcare or Family Care: No Gender identity (if verbalized by the patient): Female Spiritual care concerns: No Exam 2 Const: General: healthy appearing and no acute distress Nutritional Appearance: well nourished and obese Orientation/consciousness: patient oriented x3 Limitations: no limitations Eyes: Conjunctivae: conjunctivae normal Pupils: Equal, round and reactive pupils present Chest: Chest palpation & inspection: normal inspection of the chest Resp: Effort & Inspection: normal respiratory effort Auscultation: clear to auscultation bilaterally Cardio: Rate: regular rate Rhythm: regular rhythm GI: GI Palp: Yes Soft to palpation and Yes Tenderness to palpation present (GI) Auscultation: normal bowel sounds : General: Yes bladder normal to palpation Skin: General skin exam: normal color Rashes: no rashes Neuro: General: patient oriented x3 Extrem: General: normal to inspection Course Course Emergency Course: Patient received IV fluids with IV Zofran and IV Toradol, blood work shows a potassium level 3.0 replaced with p.o. potassium. CT scan performed shows no acute abnormalities. UA performed shows that there is some bacteria consistent with UTI. Vital Signs Vital signs: Vital Signs Temperature 36.4 C L 06/22/24 13:09 Pulse Rate 80 06/22/24 13:09 Respiratory Rate 14 06/22/24 13:09 Blood Pressure 154/101 H 06/22/24 13:09 Pulse Oximetry 99 06/22/24 13:09 Oxygen Delivery Room Air 06/22/24 13:09 Temperature 36.4 C L 06/22/24 13:09 Pulse Rate 80 06/22/24 13:09 Respiratory Rate 14 06/22/24 13:09 Blood Pressure 154/101 H 06/22/24 13:09 Pulse Oximetry 99 06/22/24 13:09 Oxygen Delivery Room Air 06/22/24 13:09 MDM - Abdominal Pain Lab Data 06/22/24 13:46 06/22/24 13:46 Labs: Lab Results 06/22/24 06/22/24 Range/Units 13:27 13:46 WBC 8.4 (4.8-10.8) K/mm3 RBC 4.88 (4.20-5.40) M/mm3 Hgb 14.5 (12.0-15.0) g/dL Hct 42.2 (35.0-49.0) % MCV 86.5 (78.0-102.0) fL MCH 29.7 (27.0-31.0) pg MCHC 34.4 (32-36) g/dL RDW 12.1 (11.6-14.4) % Plt Count 288 (150-420) K/mm3 MPV 10.3 (9.2-11.8) fl Immature Gran % (Auto) 0.5 H (0.0-0.0) % Neut % (Auto) 77.3 H (50.0-70.0) % Lymph % (Auto) 14.8 L (18.0-42.0) % [place] % (Auto) 6.9 (2.0-11.0) % Eos % (Auto) 0.4 L (1.0-6.0) % Baso % (Auto) 0.1 (0.0-1.0) % Lymph # (Auto) 1.25 (1.10-4.50) K/mm3 [place] # (Auto) 0.58 (0.10-0.90) K/mm3 Eos # (Auto) 0.03 (0.02-0.50) K/mm3 Baso # (Auto) 0.01 (0.00-0.10) K/mm3 Abs Immat Gran (auto) 0.04 H (0.00-0.00) K/mm3 Absolute Neuts (auto) 6.52 (1.70-7.20) K/mm3 Absolute Nucleated RBC 0.00 (0.00-0.00) K/mm3 Nucleated RBC % 0.0 (0-0.0) % Sodium 140 (136-145) mmol/L Potassium 3.0 L (3.5-5.1) mmol/L Chloride 100 (98-108) mmol/L Carbon Dioxide 25 (21-32) mmol/L Anion Gap 15 H (4-12) mmol/L BUN 9 (7-18) mg/dL Creatinine 0.74 (0.55-1.02) mg/dL Estim Creat Clear Calc 99 ml/min Estimated GFR > 60 (59 - ) Glucose 92 (70-99) mg/dL Calculated Osmolality 288 (285-295) mOsm/kg Lactic Acid 0.7 (0.4-2.0) mmol/L Calcium 9.3 (8.5-10.1) mg/dL Total Bilirubin 1.0 (0.00-1.00) mg/dL AST 15 (15-37) U/L ALT 23 (14-59) U/L Alkaline Phosphatase 85 (46-116) U/L Total Protein 7.7 (6.4-8.2) g/dL Albumin 4.2 (3.4-5.0) g/dL Lipase 15 L (16-77) U/L Urine Color Yellow (Yellow) Urine Appearance Cloudy A (Clear) Urine pH 5.5 (5.0-8.0) Ur Specific [place] >= 1.030 H (1.010-1.020) Urine Protein Trace H (Negative) Urine Glucose (UA) Negative (Negative) Urine Ketones 2+ H (Negative) Ur Blood (Man) Negative (Negative) Urine Nitrate Negative (Negative) Urine Bilirubin 1+ H (Negative) Urine Urobilinogen 1.0 (0.2-1.0) mg/dL Leukocyte Esterase Rfl Negative (Negative) BREANN/UL Urine RBC None seen (0-2) /hpf Urine WBC None seen (0-3) /hpf Ur Squamous Epith Cells Few (Few) /hpf Urine Bacteria 1+ H (None) /hpf Urine Mucus Heavy H /lpf Urine Test Negative Influenza A (RT-PCR) Negative (Negative) Influenza B (RT-PCR) Negative (Negative) RSV (RT-PCR) Negative (Negative) SARS-CoV-2 RNA (RT-PCR) Negative (Negative) Imaging Data Radiologist's impression: ITS Impressions Abdomen/Pelvis CT 06/22/24 14:48 IMPRESSION: 1. No acute intra-abdominal/pelvic process. Critical Care Time Critical Care Time Critical Care Time: No Discharge Plan Discharge Clinical Impression: Gastroenteritis, Acute hypokalemia UTI (urinary tract infection) Qualifiers: Urinary tract infection type: site unspecified Hematuria presence: without hematuria Qualified Code(s): N39.0 - Urinary tract infection, site not specified Patient Disposition: Home, Self-Care Condition: Stable Instructions: Antibiotic Form, Urinary Tract Infection in Women (ED), Hypokalemia (ED), Gastroenteritis (ED) Additional Instructions: advised patient to take medication as prescribed and follow up with primary within a week further evaluation and treatment. Patient Language: [place]an Prescriptions: New potassium chloride [K-Tab] 20 mEq tablet extended release 20 meq PO BID 3 Days Qty: 6 0RF nitrofurantoin monohyd/m-cryst [Macrobid] 100 mg capsule 100 mg PO Q12H 7 Days Qty: 14 0RF Rx Instructions: must administer with a meal/food ondansetron 4 mg tablet,disintegrating 4 mg PO Q6H PRN (Reason: nausea and vomiting) Qty: 14 0RF No Action hydroxyzine HCl 25 mg tablet 25 mg PO QHS PRN (Reason: itching) Qty: 30 0RF methylprednisolone [Medrol (Dionicio)] 4 mg tablets,dose pack See Rx Instructions PO PER PKG DIR Qty: 21 0RF Rx Instructions: PO PER PKG DIR for 6 days quetiapine [Seroquel] 50 mg tablet 50 mg PO HS Qty: 90 1RF ondansetron 4 mg tablet,disintegrating See Rx Instructions .ROUTE .COMPLEX Qty: 30 3RF Dose Instruction: DISSOLVE 1 TABLET ON THE TONGUE EVERY 8 HOURS NEEDED FOR NAUSEA OR VOMITING Rx Instructions: DISSOLVE 1 TABLET ON THE TONGUE EVERY 8 HOURS NEEDED FOR NAUSEA OR VOMITING Drysol 20 % solution 1 applic TOPICAL 2XW PRN (Reason: hyperhidrosis) Qty: 60 1RF fluconazole 200 mg tablet 200 mg PO WEEKLY Qty: 4 0RF Rx Instructions: Take one tab once weekly for 4 weeks dextroamphetamine-amphetamine [Adderall XR] 10 mg capsule,extended release 24hr 10 mg PO DAILY Qty: 15 0RF Follow-up/Referrals: Eliud Zaman MD [Primary Care Provider] - Time of Disposition: 15:06
[2024-06-22 15:12] VITALS: BP 129/84; PULSE 75; RESP 17; TEMP 36.8; O2SAT 98
--- OUTSIDE RECORDS SUMMARY | 2024-06-23 05:07 | XMS_ITS | Data Portability ---
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 Patient will come back in a year unless there are new symptoms. Suggest Calcium with Vitamin D if not eating in diet. Patient advised to get annual flu shot. Recommend yearly physicals and preform monthly breast exams. Genetic testing is available for patients with family history of cancer. Engage in safe sexual practices, use condoms. Encouraged to have daily exercise. Avoid tobacco and illicit drugs, moderation of alcohol. If BMI greater than 25 dietary consult advised. If you have any questions please call or email. [email or web address] Not available 10/02/2020 09:56:35 12/12/2021 12/12/2021 Annual gynecological exam performed. Patient will come back in a year unless there are new symptoms. Not available 12/12/2021 09:44:24 Plan of Treatment Reminders Order Date Submit Date Provider Last Modified By Organization Details Last Modified Time Details Appointments None recorded. Lab test, urine 2021 022 [email or web address] [address], [address], [place], [address], 10:05:29 Referral None recorded. Procedures None recorded. Surgeries None recorded. Imaging US, pelvis 2020 021 [email or web address] [address], [address], [place], [address], 19:29:01 US, transvagina l 2020 021 [email or web address] [address], [address], [place], [address], 19:29:01 US, transvagina l 2020 021 [email or web address] [address], [address], [place], [address], 19:47:54 Medication Orders Slynd 4 mg (28) tablet 2020 [id number], [address], [place], [id number], 09:56:59 Patient TargetsNo targets recorded. Patient InstructionsNo instructions recorded. Reason for Referral None Reported. Results Created Date Observation Date Name Description Value Unit Range Abnormal Flag Note LastModifiedBy Organization Detail LastModifiedTime 10/03/19 21 10/02/2020 pap, IG + refle x HPV if ASC-U image guided Pap, reflex HPV ASCUS only SEE RESULT S BELOW CASE REPOR T: Cytol ogy Gynec ologi yamilka Repor t Case: [id number] Autho malik leahy Provi sophia: Mimi Avalos NP Colle cted: 10/02 1437 Order ing Locat ion: [place] [facility] Recei jared: 10/03 0233 First Scree n: Parvez Adame, CT Speci men: Scree horace Pap - Image d, Cervi x STATE MENT OF ADEQU ACY: Satis facto ry for evalu ation Trans forma tion zone compo nent prese nt FINAL DIAGN OSIS: Negat inna for Intra epith elial Lesio n or Malig bebeto Elect ronic ally shaquille d by Parvez Adame, CT on 021 at 7:00 PM ----- ----- ----- ----- ----- ----- ----- ----- ----- ----- ----- ----- ----- ----- ----- ----- ----- ---- CHART ABLE COMME NT: Note: This speci men was revie wed by a Cytot echno logis t and/o r Patho logis t (as indic ated in this repor t) after evalu ation using the Thinp rep Imagi ng Syste m. CLINI YAMILKA INFOR MATIO N: Menst rual Statu s: LMP (if appli cable ): 2020 Clini yamilka Histo ry/Pr eviou s Pap: Type of Neopl neno (if appli cable ): Other Histo ry: Hormo jett (if appli cable ): PAP EDUCA RUCHI L NOTE: The Pap Test is a scree horace test with an inher ent false negat inna rate. Liqui d-bas e sampl ing may decre ase, but will not elimi naomi, false negat inna resul ts. A negat inna resul t does not precl ude the prese nce and/o r devel opmen t of disea se, since the prese nce of abnor mal cells in the sampl e depen ds on the locat ion of the lesio n and sampl ing techn ique. Javi nued regul ar scree horace is the best metho d of cance r preve ntion . If repor freddy cytol ogic findi ng do not corre late with physi yamilka and/o r histo rical findi ngs, furth er inves tigat ion is recom bird d, as clini cleopatra sapp nted. Not Available [facility] (Lab) [address], [place], [address], 10/03/2020 20:03:23 12/04/19 21 12/03/2020 BHCG, QUANT ITATI VE B-HCG <0.2 mIU/m L This assay was perfo rmed using [employer] ratio n reage nts and test kits. Value s obtai michelle with other assay metho ds or kits canno t be used inter oden eably . Refer ence Range s: Non-p regna nt, preme nopau [place] women : 0.0-5 .3 mIU/m L Postm enopa usal women : 0.0-7 .0 mIU/m L Ximena l Pregn jasmin: Gesta ruchi l Age bHCG Conc. - mIU/m L 3 Weeks 5.8 - 71.7 4 Weeks 9.5 - 750 5 Weeks 217-7 138 6 Weeks 158 - 31,79 5 7 Weeks 3,697 - 162,5 63 8 Weeks 32,06 5 - 149,5 71 9 Weeks 63,80 3 - 151,4 10 10 Weeks 46,50 9 - 186,9 77 12 Weeks 27,83 2 - 210,6 12 14 Weeks 13,95 0 - 62,53 0 15 Weeks 12,03 9 - 70,97 1 16 Weeks 9,040 - 56,45 1 17 Weeks 8,175 - 55,86 8 18 Weeks 8,099 - 58,[address] [facility] (Lab) [address] [facility], [place], [address], 12/04/2020 01:16:02 12/13/19 22 12/12/2021 IMAGE GUIDE D PAP, REFLE X HPV IF ASCUS ONLY image guided Pap, reflex HPV ASCUS only SEE RESULT S BELOW CASE REPOR T: Cytol ogy Gynec ologi yamilka Repor t Case: [id number] Autho malik g Provi sophia: Damion Avendaño Colle cted: 12/12 1300 [employer] Order ing Locat ion: [place] Path[facility] [place] Recei jared: 12/15 0735 First Scree n: Dawn Blake ret, CT Rescr een: Fannie Lees ay, CT Speci men: Scree horace Pap - Image d, Cervi x STATE MENT OF ADEQU ACY: Satis facto ry for evalu ation Trans forma tion zone compo nent prese nt FINAL DIAGN OSIS: Negat inna for Intra epith elial Lesio n or Marco A tate (NIL) . Shift in jacquelin sugge stive of bacte rial vagin osis. Elect frances huertas shaquille d by Fannie Lees, CT on 2021 at 8:58 PM ----- ----- ----- ----- ----- ----- ----- ----- ----- ----- ----- ----- ----- ----- ----- ----- ----- ---- COMME NT: Note: This speci men was revie wed by a Cytot echno logis t and/o r Patho logis t (as indic ated in this repor t) after evalu ation using the Thinp rep Imagi ng Syste m. CLINI YAMILKA INFOR MATIO N: Menst rual Statu s: LMP (if appli cable ): 2021 Clini yamilka Histo ry/Pr eviou s Pap: Type of Neopl neno (if appli cable ): Signi fican t Clini yamilka Findi ngs: Other Histo ry: Hormo jett (if appli cable ): PAP EDUCA RUCHI L NOTE: The Pap Test is a scree horace test with an inher ent false negat inna rate. Liqui d-bas ed sampl ing may decre ase, but will not elimi naomi, false negat inna resul ts. A negat inna resul t does not precl ude the prese nce and/o r devel opmen t of disea se, since the prese nce of abnor mal cells in the sampl e depen ds on the locat ion of the lesio n and sampl ing techn ique. Javi nued regul ar scree horace is the best metho d of cance r preve ntion . If repor freddy cytol ogic findi ng do not corre late with physi yamilka and/o r histo rical findi ngs, furth er inves tigat ion is recom bird d, as clini cleopatra sapp nted. Not Available [facility] [address] [place], [address], 12/17/2021 22:01:09 12/13/19 22 12/12/2021 CT/GC (BEST) , THINP REP VIAL chlamydia trachomatis, PCR Negati ve negati ve Not Available [facility] [address] [place], [address], 12/17/2021 22:01:10 12/13/19 22 12/12/2021 CT/GC (BEST) , THINP REP VIAL neisseria gonorrhoeae, PCR Negati ve negati ve Not Available [facility] [address] [place], [address], 12/17/2021 22:01:10 12/13/19 22 12/12/2021 TRICH OMONA S VAGIN AR (RRNA ) trichomonas vaginalis ribosomal RNA (rrna) Negati ve negati ve Not Available [facility] [address] [place] [address], [address], 12/17/2021 22:01:10 12/13/19 22 12/12/2021 pregn jasmin test, urine HCG negati ve Not Available [address], [place], [address], 12/12/2021 10:04:16 12/04/19 21 12/03/2020 US, pelvi s No observ ation record ed. [email or web address] [address], [place], [address], 12/03/2020 18:13:33 12/04/19 21 12/03/2020 US, trans vagin al No observ ation record ed. [email or web address] [address], [place], [address], 12/03/2020 18:13:05 12/04/19 21 12/03/2020 US, pelvi s No observ ation record ed. [facility] [address], [place], [address], 12/04/2020 20:41:54 12/27/19 21 12/26/2020 US, trans vagin al No observ ation record ed. [email or web address] [address], [place], [address], 12/26/2020 18:06:53 12/27/19 21 12/26/2020 US, trans vagin al No observ ation record ed. [facility] [address], [place], [address], 12/27/2020 19:19:15 01/18/20 21 01/16/2021 US, devonte alvarez No observ ation record ed. [email or web address] [facility] [address], [place], [address], 01/24/2021 13:04:31 Result Notes None recorded. Problems Name Problem SNOMED Code Status Onset Date Resolution Date Notes Provider Name and Address Organization Details Recorded Time Gestatio nal diabetes mellitus 39358729 Completed Nadya herrmann, [facility] 09:34:30 Pregnanc y 17468859 Completed 201906/06/2020 Yara Tinoco null, [facility] 17:43:28 Twin pregnanc y 61696999 Completed Di-di boy and girl Nadya herrmann, [facility] 09:34:30 Deliveri es by [id number] Completed Arrest of dilation , wants repeat C/S @ 37 wks on 01/11. Pt Case sent on 11/17/19 Nadya herrmann, [facility] 05/05/202 1 09:34:30 Chronic hyperten garry in obstetri c context 4880284 Completed labetalo l 200 mg BID per MFM Nadya Parra [facility], [facility] 1 09:34:30 Pregnanc y detectio n examinat ion Completed 201906/11/2020 Encounte r for pregnanc y test, result positive ;Recorde d Elsewher e: No Locat ion: [facility] S ource: EHR Variety Performer chidi: N Alkati ce ID: 0001 Crispin lable Time: 02:00:00 PM Michela herrmann, [facility] 1 10:14:12 Gestatio n period, 19 weeks 23244997 Completed 201906/11/2020 19 weeks gestatio n of pregnanc y;Record ed Elsewher e: No Locat ion: [facility] S ource: EHR Variety Performer chidi: N Alkati ce ID: 0001 Crispin lable Time: 11:30:00 AM Michela herrmann, [facility] 1 10:14:07 Antenata l screenin g Completed 201906/11/2020 Encounte r for other specifie d antenata l screenin g;Record ed Elsewher e: No Locat ion: [facility] S ource: EHR Variety Performer chidi: N Alkati ce ID: 0001 Crispin lable Time: 02:45:00 PM Michela herrmann, [facility] 1 10:13:56 Disorder of labor / delivery Completed 201906/11/2020 Twin pregnanc y, dichorio chidi/diam niotic, first trimeste r;Record ed Elsewher e: No Locat ion: [facility] S ource: EHR Variety Performer chidi: N Practi ce ID: 0001 Crispin lable Time: 02:45:00 PM Michela herrmann, [facility] 1 10:13:57 Gestatio n period, 13 weeks [id number] Completed 201906/11/2020 13 weeks gestatio n of pregnanc y;Record ed Elsewher e: No Locat ion: [facility] S ource: EHR Variety Performer chidi: N Alkati ce ID: 0001 Crispin lable Time: 03:00:00 PM Michela Lambert alize, [facility] 10:14:04 Complica tion of pregnanc y, childbir th and/or puerperi um 246452014 Completed 201906/11/2020 Oth diseases and conditio ns compl preg/chl dbrth;Re corded Elsewher e: No [facility]: EHR Variety Performer chidi: N Alkati ce ID: 0001 Crispin lable Time: 11:30:00 AM Michela Lambert alize, [facility] 10:14:17 Threaten ed miscarri age 40150952 Completed 201906/11/2020 Threaten ed ;Recorde d Elsewher e: No Locat ion: [facility] S ource: EHR Variety Performer chidi: N Alkati ce ID: 0001 Crispin lable Time: 11:30:00 AM Michela Lambert alize, [facility] 10:14:15 Gestatio n period, 15 weeks [id number] Completed 201906/11/2020 15 weeks gestatio n of pregnanc y;Record ed Elsewher e: No Locat ion: [facility] S ource: EHR Variety Performer chidi: N Alkati ce ID: 0001 Crispin lable Time: 02:45:00 PM Michela Lambert alize, [facility] 10:14:06 Normal pregnanc y in multigra ster[place] [id number] 4106 Completed 201906/11/2020 Encounte r for suprvsn of normal pregnanc y, second trimeste r;Record ed Elsewher e: No Locat ion: [facility] S ource: EHR Variety Performer chidi: N Practi ce ID: 0001 Crispin lable Time: 04:00:00 PM Michela herrmann, [facility] 1 10:14:11 Gestatio n period, 9 weeks [id number] Completed 201906/11/2020 9 weeks gestatio n of pregnanc y;Record ed Elsewher e: No [facility]: E[facility] Variety Performer chidi: N Practi ce ID: 0001 Crispin lable Time: 11:30:00 AM Michela herrmann, [facility] 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 10:14:14 Disorder of labor / delivery Completed 201906/11/2020 Twin pregnanc y, dichorio chidi/diam niotic, second trimeste r;Record ed Elsewher e: No Locat ion: [facility] S ource: EHR Variety Performer chidi: N Practi ce ID: 0001 Crispin lable Time: 11:30:00 AM Michela herrmann, [facility] 1 10:13:59 Gestatio n period, 11 weeks [id number] Completed 201906/11/2020 11 weeks gestatio n of pregnanc y;Record ed Elsewher e: No Locat ion: [facility] S ource: EHR Variety Performer chidi: N Practi ce ID: 0001 Crispin lable Time: 03:30:00 PM Michela herrmann, [facility] 1 10:14:03 Gestatio n period, 8 weeks [id number] Completed 201906/11/2020 8 weeks gestatio n of pregnanc y;Record ed Elsewher e: No Locat ion: [facility] S ource: EHR Variety Performer chidi: N Practi ce ID: 0001 Crispin lable Time: 11:30:00 AM Michela Lambert null, [facility] 1 10:14:08 Finding of contents of cervix [id number] Completed 201906/11/2020 Weeks of gestatio n of pregnanc y not specifie d;Record ed Elsewher e: No Locat ion: [facility] S ource: EHR Variety Performer chidi: N Practi ce ID: 0001 Crispin lable Time: 03:00:00 PM Michela Fausto null, [facility] 1 10:14:01 Attentio n deficit hyperact ivity disorder 028198837 Completed 202012/11/2021 Cookie Arevalo null, [facility] 2 18:04:44 Depressi ve disorder 57277588 Completed 202012/11/2021 Cookie Arevalo null, [facility] 2 18:04:44 Hyperten sive disorder 01806963 Completed 202012/11/2021 Cookie Arevalo null, [facility] 2 18:04:44 Anxiety 77153875 Completed 202012/11/2021 Cookie Arevalo null, [facility] 2 18:04:44 Bipolar disorder 15201294 Completed Nadya Parra null, [facility] 1 09:34:30 Morbid obesity 120576310 Completed PP Lovenox Nadya Parra null, [facility] 09:34:30 Problem Notes None recorded. Procedures Surgical History Date Name Laterality Status Provider Name and Address Organization Details Recorded Time 1 Date of Last Pap Smear completed [facility] 10/02/2020 09:32:06 0 section completed [facility] 10/02/2020 09:34:54 4 section completed [facility] 10/01/2020 18:23:44 3 extraction of wisdom tooth completed [facility] 10/01/2020 18:47:59 2 tonsilectomy/a denoids completed [facility] 10/01/2020 18:49:03 Imaging Results Imaging Date Name Status LastModified by Organization Details LastModified Time 12/03/2020 US, pelvis completed [email or web address] [address] [address], [place], [address], 12/03/2020 18:13:33 12/03/2020 US, transvaginal completed [email or web address] [facility] [address], [place], [address], 12/03/2020 18:13:05 12/03/2020 US, pelvis completed [facility] [address], [place], [address], 12/04/2020 20:41:54 12/26/2020 US, transvaginal completed [email or web address] [facility] [address], [place], [address], 12/26/2020 18:06:53 12/26/2020 US, transvaginal completed [facility] [address], [place], [address], 12/27/2020 19:19:15 01/16/2021 US, breast, bilateral completed [email or web address] [facility] [address] [facility] [address], [place], [address], 01/24/2021 13:04:31 Procedure Notes None recorded. Medical Equipment None Reported. Allergies Allergen ID Allergen Name Allergen Category Reaction Reaction Severity Criticality Documentation Date Start Date Code Code System Note Provider Name and Address Organization Details Recorded Time 114 amoxicill in medicatio n Not available Not available Not available 09/12/2019 723 RxNorm [facility] 0 14:43:52 115 codeine medicatio n Not available Not available Not available 09/12/2019 2670 [facility] 0 14:44:16 116 potassium medicatio n Not available Not available Not available 09/12/2019 8588 [facility]Norm [facility] 0 14:44:27 81630 Product containin g penicilli n and antibioti c (product) medicatio n Not available Not available Not available 06/11/[address] [facility] 1 10:52:53 Medications Name Sig Start Date Stop Date Status Note LastModified by Organization Details LastModified Time quetiapin e 25 mg tablet take 1 tablet by oral route 2 times every day 06/11 completed Prescrib ed Elsewher e: Yes Loca tion: [facility] M odify By: calin wood DateTime : 07/14/19 20 02:45:00 PM Not Available Not Available Not Available cyclobenz aprine 10 mg tablet TAKE 1 TABLET BY MOUTH EVERY DAY AT BEDTIME NEEDED FOR MUSCLE SPASM active Not Available Not Available No t Available buspirone 5 mg tablet TAKE 1 TABLET BY MOUTH TWICE DAILY FOR 14 DAYS active Not Available Not Available No t Available prednison e 10 mg tablet FOLLOW PACKAGE DIRECTIO NS active Not Available Not Available No t Available labetalol 200 mg tablet TAKE 1 TABLET BY MOUTH EVERY 12 HOURS active Not Available Not Available No t Available cetirizin e 10 mg tablet 06/11 completed Not Available Not Available Not Available azithromy abril 250 mg tablet TK 2 TS PO ON DAY 1, THEN TK 1 T PO D FOR 4 DAYS 12/20 completed Not Available Not Available Not Available fluconazo le 150 mg tablet TAKE 1 TABLET BY MOUTH EVERY 72 HOURS active Not Available Not Available No t Available hydrocodo ne 5 mg-acetam inophen 325 mg tablet 06/11 completed Not Available Not Available Not Available Adderall 5 mg tablet take 1 tablet by oral route 2 times every day before breakfas t and at noon 06/11 completed Prescrib ed Elsewher e: Yes Loca tion: [facility] odify By: calin wood DateTime : 07/14/19 02:45:00 PM Not Available Not Available Not Available naltrexon e 50 mg tablet TAKE 1 TABLET BY MOUTH DAILY 12/12 completed Not Available Not Available Not Available FreeStyle Lancets 28 gauge 06/11 completed Not Available Not Available Not Available metronida zole 0.75 % (37.5 mg/5 gram) vaginal gel INSERT 1 APPLICAT ORFUL EVERY DAY BY VAGINAL ROUTE AT BEDTIME FOR 5 DAYS active Not Available Not Available No t Available ondansetr on HCl 4 mg tablet 10/26 completed Not Available Not Available Not Available dextroamp hetamine- amphetami ne 10 mg tablet TAKE 1 TABLET BY MOUTH EVERY DAY IN THE MORNING 10/02 completed Not Available Not Available Not Available clonazepa m 0.5 mg tablet TAKE 1 TABLET BY MOUTH TWICE DAILY 12/12 completed Not Available Not Available Not Available Compazine 10 mg tablet take 1 tablet by oral route 3 times every day 06/23 completed Prescrib ed Elsewher e: No Locat ion: [facility] odify By: louisa eaton DateTime : 06/23/19 01:50:15 PM Not Available Not Available Not Available gabapenti n 400 mg capsule TAKE 1 CAPSULE BY MOUTH THREE TIMES DAILY active Not Available Not Available No t Available quetiapin e 100 mg tablet TAKE 1 TABLET BY MOUTH AT BEDTIME 12/12 completed Not Available Not Available Not Available triamcino lone acetonide 0.1 % topical cream APPLY TOPICALL Y TO THE AFFECTED AREA TWICE DAILY active Not Available Not Available No t Available ketorolac 10 mg tablet TAKE 1 TABLET BY MOUTH EVERY 6 HOURS FOR 5 DAYS NEEDED FOR PAIN active Not Available Not Available No t Available dextroamp hetamine- amphetami ne 30 mg tablet TAKE 1 TABLET BY MOUTH EVERY DAY IN THE MORNING 12/20 completed Not Available Not Available Not Available famotidin e 20 mg tablet TAKE 1 TABLET BY MOUTH DAILY active Not Available Not Available No t Available methocarb manfred 750 mg tablet TAKE 1 TABLET BY MOUTH FOUR TIMES DAILY 06/11 completed Not Available Not Available Not Available dextroamp hetamine- amphetami ne ER 20 mg 24hr capsule,e xtend release TAKE 1 CAPSULE BY MOUTH EVERY DAY IN THE MORNING 10/02 completed Not Available Not Available Not Available dicyclomi ne 20 mg tablet TAKE 1 TABLET BY MOUTH THREE TIMES DAILY NEEDED FOR ABDOMINA L CRAMPS active Not Available Not Available No t Available nystatin 100,000 unit/gram topical cream APPLY EXTERNAL LY TO UNDER ARM AREA TWICE DAILY active Not Available Not Available No t Available buspirone 10 mg tablet TAKE 1 TABLET BY MOUTH THREE TIMES DAILY active Not Available Not Available No t Available lisinopri l 10 mg tablet TAKE 1 TABLET BY MOUTH DAILY active Not Available Not Available No t Available prednison e 50 mg tablet TAKE 1 TABLET BY MOUTH DAILY active Not Available Not Available No t Available progester one micronize d 200 mg capsule 10/26 completed Not Available Not Available Not Available gabapenti n 300 mg capsule TAKE 1 CAPSULE BY MOUTH THREE TIMES DAILY active Not Available Not Available No t Available Drysol Dab-O-Mat ic 20 % topical solution APPLY 1 APPLICAT ION TOPICALL Y TWICE A WEEK NEEDED active Not Available Not Available No t Available dextroamp hetamine- amphetami ne ER 10 mg 24hr capsule,e xtend release TAKE 1 CAPSULE BY MOUTH EVERY DAY IN THE MORNING active Not Available Not Available No t Available labetalol 300 mg tablet TAKE 1 TABLET BY MOUTH EVERY 12 HOURS 10/02 completed Not Available Not Available Not Available letrozole 2.5 mg tablet 06/11 completed Not Available Not Available Not Available methylpre dnisolone 4 mg tablets in a dose pack FOLLOW PACKAGE DIRECTIO NS active Not Available Not Available No t Available labetalol 100 mg tablet TAKE 2 TABLETS BY MOUTH EVERY 12 HOURS 10/02 completed Not Available Not Available Not Available dextroamp hetamine- amphetami ne ER 30 mg 24hr capsule,e xtend release TAKE 1 CAPSULE BY MOUTH EVERY DAY IN THE MORNING active Not Available Not Available No t Available norethind franklin (contrace ptive) 0.35 mg tablet Take 1 tablet every day by oral route. 12/20 completed Not Available Not Available Not Available ondansetr on 4 mg disintegr ating tablet DISSOLVE 1 TABLET ON THE TONGUE EVERY 8 HOURS NEEDED FOR NAUSEA OR VOMITING active Not Available Not Available No t Available metformin ER 500 mg tablet,ex tended release 24 hr 06/11 completed Not Available Not Available Not Available drospiren one 3 mg-ethiny l estradiol 0.03 mg tablet 10/26 completed Not Available Not Available Not Available naproxen 500 mg tablet TAKE 1 TABLET BY MOUTH TWICE DAILY NEEDED FOR PAIN active Not Available Not Available No t Available metoclopr amide 10 mg tablet take 1 tablet by oral route 4 times every day 30 minutes before meals and at bedtime 10/26 completed Not Available Not Available Not Available buspirone 15 mg tablet TAKE 1 TABLET BY MOUTH THREE TIMES DAILY active Not Available Not Available No t Available clobetaso l 0.05 % lotion APPLY EXTERNAL LY TO THE AFFECTED AREA OF RASH ON NECK TWICE DAILY FOR 4 WEEKS active Not Available Not Available No t Available bupropion HCl XL 150 mg 24 hr tablet, extended release TAKE 1 TABLET BY MOUTH EVERY MORNING 12/12 completed Not Available Not Available Not Available nitrofura ntoin monohydra te/macroc rystals 100 mg capsule TAKE 1 CAPSULE BY MOUTH EVERY 12 HOURS WITH FOOD active Not Available Not Available No t Available quetiapin e 10/26 completed Not Available Not Available Not Available lisinopri l 06/11 completed Not Available Not Available Not Available Tylenol 06/11 completed Not Available Not Available Not Available 06/11 completed Not Available Not Available Not Available Adderall 10/26 completed Not Available Not Available Not Available quetiapin e 50 mg tablet TAKE 2 TABLETS BY MOUTH EVERY DAY AT BEDTIME active Not Available Not Available No t Available FreeStyle Lite Meter kit 06/11 completed Not Available Not Available Not Available Lantus Solostar U-100 Insulin 100 unit/mL (3 mL) subcutane ous pen 06/11 completed Not Available Not Available Not Available quetiapin e ER 50 mg tablet,ex tended release 24 hr 06/11 completed Not Available Not Available Not Available BD Ultra-Fin e Mili Pen Needle 32 gauge x 5/32 06/11 completed Not Available Not Available Not Available OneTouch Verio test strips 06/11 completed Not Available Not Available Not Available PreviDent 5000 Booster Plus 1.1 % dental paste active Not Available Not Available Not Available OneTouch Delica Plus Lancet 33 gauge 06/11 completed Not Available Not Available Not Available Slynd 4 mg (28) tablet TAKE 1 TABLET BY MOUTH EVERY DAY active Not Available Not Available No t Available Baqsimi 3 mg/actuat ion nasal spray 06/11 completed Not Available Not Available Not Available ID NOW COVID-19 Test Kit TEST DIRECTED active Not Available Not Available No t Available Vitals Date Recorded Body height Body mass index (BMI) Body weight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
--- OUTSIDE RECORDS SUMMARY | 2024-06-23 05:14 | XMS_ITS | Referral Summary ---
Author Organization [facility] Address [address] [place] [address] Care Team Providers Care Parking Cashier Name Role Phone Eliud Zaman MD Primary Care Provider [phone] Danielle Malhotra DO Unavailable [phone] Source Comments [facility],non-owned Affiliates and Associated Physician Practices is amultiple site organization consisting of ambulatory clinics and hospital sitesin [place], [place], [place] and [place]. This disclosure is being madepursuant to the Care Everywhere program and may not contain all information available regarding this patient. Last updated 18.[facility] Allergies Active Allergy Reactions Criticality Noted Date Comments Amoxicillin Urticaria Medium 08/23/2019 Codeine Nausea and/or Vomiting 10/25/2019 Penicillins Urticaria Medium 08/23/2019 Medications * Be aware that medications may not be up to date on this document. Alwaysverify current medications with the patient. Medication Sig Dispensed Refills Start Date End Date Status Vit-Fe Fumarate-FA ( VITAMIN) 28-0.8 MG tablet Take 1 tablet by mouth once daily Active QUEtiapine Fumarate (SEROQUEL PO) Take 50 mg by mouth at bedtime Active aspirin (ASPIRIN) 81 MG chew tabletIndications :preeclampsia Take 2 tablets by mouth once daily Reasons: preeclampsia 100 tablet 08/23/2019 Active doxylamine (UNISOM SLEEPTABS) 25 MG tabletIndications :Insomnia Take 25 mg by mouth nightly as needed for Insomnia Reasons: Trouble Sleeping Active riboflavin 100 MG tabletIndications :Frequent Headaches Take 4 tablets by mouth once daily Reasons: Frequent Headaches 120 tablet 11 11/22/2019 Active Additional Information Patient not taking.Reported on 11/24/2019 insulin glargine (LANTUS SOLOSTAR) pen Inject 16-30 Units subcutaneously at bedtime Start with 16 units. Increase as directed. 3 Pen 2 11/29/2019 Active Additional Information Patient not taking.Reported on 12/13/2019 Insulin Pen Needle 32G X 4 MM MISC Use 1 Each once daily 100 Each 2 11/29/2019 Active Glucagon (BAQSIMI ONE PACK) 3 MG/DOSE POWD [place] 3 mg into the nose as needed 1 Each 1 11/29/2019 Active Additional Information Patient not taking.Reported on 12/13/2019 labetalol (NORMODYNE; TRANDATE) 100 MG tabletIndications :Hypertension Take 2 tablets by mouth every 12 hours Reasons: High Blood Pressure Disorder 120 tablet 3 11/29/2019 Active metFORMIN ER 24hr (GLUCOPHAGE XR) 500 MG tablet Take 2 tablets by mouth 2 times daily 120 tablet 11/29/2019 Active ONETOUCH DELICA LANCETS 33G MISC Use 1 Each 4 times daily 100 Each 2 11/29/2019 Active blood glucose (ONETOUCH VERIO) test strip Use 1 strip 4 times daily 100 strip 2 11/29/2019 Active calcium carbonate (TUMS) 500 MG chew tablet Take 1 tablet by mouth daily with food Active cetirizine (ZYRTEC) 10 MG tablet Take 1 tablet by mouth once daily 30 tablet 5 12/13/2019 Active Active Problems Problem Noted Date Diagnosed Date Gestational diabetes mellitus (GDM) 11/15/2019 Overview (11/29/2019): 11/13/19 3 hr results: 96 FBS, 215 1hr, 182 2hr, 96 3hr. titrating metformin to full dose, and Lantus started on 11/28 Assessment & Plan (11/22/2019 2:43 PM CDT): Blood glucose log reviewed. Some mildly elevated fasting values. A few mildly elevated postprandial values. Learning to follow a diabetic diet. Twin B with abdominal circumference greater than the 95th percentile GDMA2 I counseled Genesis Banegas regarding the adverse outcomes associated with inadequately controlled diabetes in . These complications include overgrowth with the associated risk of labor and shoulder dystocia, delivery, preeclampsia, hypoglycemia, stillbirth, and her child's risk of metabolic disease in later life secondary to programming of adult disease. Adequate treatment of the disease will minimize these risks. We discussed the dramatic increase in insulin resistance that occurs in the second half of and I outlined a plan for ongoing management. We reviewed the target glucose ranges to minimize excessive growth and optimize outcomes. These are: Fasting 60-90 mg/dl; preprandial 60-105 mg/dl; and 1-hour postprandial < 130 mg/dl. After our discussion, she elected to start metformin. Her dose was and will be: 500 mg with breakfast and with dinner. A) Antepartum testing. Recommend daily kick counts Twice weekly NST from 34 weeks until delivery, with weekly BPP due to comorbid chronic hypertension. Serial Ultrasound assessment of growth every 4 weeks is recommended B) Long-term diabetes surveillance. The risk of Genesis Banegas developing diabetes outside of over the next five years may be as high as 50%. I recommend that she have a fasting plasma glucose or 2hr GTT at 4 weeks and discussion of the results at her 6 week visit. If her testing is normal, annual glucose screening by her primary care physician is advised. Plan: Maternal- Medicine to manage gestational diabetes 1. prescription given for metformin--to titrate to 500 mg b.i.d. a.c. 2. Recommend checking blood glucose 4 times daily and keeping a food diary and blood glucose log 3. Send diary and logs weekly for review to the Diabetic Nurse Educator 4. Twice weekly nonstress tests starting at 34 weeks, with weekly BPP due to comorbid chronic hypertension 5. Serial growth every 4 weeks 6. 7. Diabetes testing 4-5 weeks after delivery with review at 6 week visit Elevated WBC count 11/13/2019 Overview (11/13/2019): WBC: 13.2, neutrophils elevated: 9293, metamyelocytes: 132, elevated; per Dr. Lara continue to follow for concern regarding inflammatory condition (reviewed with her 11/08) Assessment & Plan (11/22/2019 2:30 PM CDT): Maternal Medicine recommendations: 1. recommend repeat CBC within 1 month--to be ordered by referring inspector and mender Maternal morbid obesity, antepartum 08/23/2019 Assessment & Plan (09/20/2019 12:17 PM CDT): Total weight gain of 24 lb to date. Has a visit to go over dietary recommendations at [facility] in the next few weeks. Maternal Medicine recommendations: 1. Recommend total weight gain of 25-42 lb due to current BMI and twin gestation 1. recommend modest weight gain for the remainder of the 2. Recommend prophylactic Lovenox, in the hospital, after repeat delivery 3. Would benefit from and weight reduction Assessment & Plan (08/23/2019 11:46 AM CDT): Obese women have higher rates of spontaneous miscarriage. Morbid obesity is associated with a host of complications: increased risk for preeclampsia and gestational hypertension, delivery, macrosomia, gestational diabetes, deep venous thrombosis, delivery, stillbirth and certain defects, such as open neural tube defects. deliveries are associated with an increased risk of complications, such as anesthetic complications, wound complications and infections. Maternal Medicine recommendations: 1. Encouraged exercise and increased intake of green leafy vegetables 2. recommend total weight gain of 25 dash 42 lb due to current BMI and twin gestation 3. recommend prophylactic Lovenox, in the hospital, after repeat delivery 4. Would benefit from weight reduction Previous delivery, antepartum condition or complication 08/23/2019 Assessment & Plan (11/22/2019 2:34 PM CDT): Desires repeat delivery. Assessment & Plan (08/23/2019 11:50 AM CDT): Desires repeat delivery. At increased risk for VTE . Maternal Medicine recommendations: 1. recommend short-term prophylactic anticoagulation, in the hospital, after delivery Twin , dichorionic/diamniotic, second t rimester 08/21/2019 Overview (11/22/2019): Invitae [cell free DNA] low risk, Y chromosome detected MS AFP negative for twins Anatomy surveys: completed, no malformations identified Assessment & Plan (09/20/2019 12:20 PM CDT): Appropriate and concordant growth. We discussed the results of the MSAFP which was low risk for open neural tube defects. Maternal Medicine recommendations: 1. Serial growth every 4 weeks 2. Weekly BPP starting at 32 weeks 3. Date of delivery initiation at 37 weeks Assessment & Plan (08/23/2019 11:51 AM CDT): Genesis and Hilda discussed the challenges that face a twin . Twins pregnancies represent about 3 percent of live births. Multiple gestations are associated with higher rates of all complications with the exception of macrosomia and postdates. The most serious complications are as follows: - labor and delivery, which occurs in half of the twin pregnancies before 37 weeks and 11% of those before 32 weeks. This may also be secondary to PPROM. - Gestational hypertension (13%) and preeclampsia (10-15%) are more common in twin gestations as compared to martinez pregnancies. - Low weight / IUGR fetuses - Gestational diabetes (GDM) - Higher risk of congenital anomalies - Higher risk for dermatological related disorders of (cholestasis and PUPPS) - Higher risk for iron deficiency anemia - Higher risk for placental abruption (3-fold increase) - Increased risk for loss - Increased risk for malpresentation - venous thromboembolism Concordant and appropriate growth today for both twins. No malformations demonstrated on survey. Maternal Medicine recommendations: 1. serial growth every 4 weeks 2. orders for maternal serum alpha protein given today 3. total weight gain goal 25-42 lb 4. Delivery initiation at 37 weeks due to comorbid chronic hypertension Chronic hypertension during 05/31/2017 Overview (11/09/2019): Used to be on medication for one month labs (08/25/2019): BUN 7/creatinine 0.47/ALT 20/AST 15 24 hr urine: 210 mg protein/24 hr; protein creatinine ratio 0.137 CBC/CMP: 11/09/19: creatinine: 0.49, AST: 15, ALT: 14 H/H/P: 12.7/37.4/260 Assessment & Plan (11/22/2019 2:29 PM CDT): Blood pressure appropriate. On labetalol 200 mg twice daily. Remains at risk for hypertensive disorders of Maternal Medicine recommendations: 1. Continue aspirin for preeclampsia risk reduction 2. Continue home blood pressure monitoring 1. To review blood pressure log with inspector and mender 2. Report blood pressure values greater than 160/100 3. Continued exercise 4. Weekly BPP starting at 32 weeks 5. Delivery initiation at 37 weeks due to comorbid dichorionic twin gestation 6. Would benefit from and weight reduction Assessment & Plan (09/20/2019 12:15 PM CDT): Blood pressure appropriate without antihypertensive. No macroproteinuria or abnormalities on baseline studies. Remains at risk for hypertensive disorders of Maternal Medicine recommendations: 1. Continue aspirin for preeclampsia risk reduction 2. Continue home blood pressure monitoring 1. To review blood pressure log with inspector and mender 2. Strongly encouraged to report blood pressure values greater than 160/100 3. Encouraged continued exercise 4. Weekly BPP starting at 32 weeks 5. Delivery initiation at 37 weeks due to comorbid dichorionic twin gestation 6. Would benefit from and weight reduction Assessment & Plan (08/23/2019 11:37 AM CDT): Chronic Hypertension Chronic hypertension is associated with a 20-25% risk for superimposed preeclampsia. Low dose aspirin has a small-moderate benefit in the prevention of preeclampsia in at risk women (Kwame DSR, 2008). There is no significant risk of low dose aspirin if initiated after the first trimester of . Low dose aspirin therapy is discussed. Antihypertensive therapy does not reduce the risk for superimposed preeclampsia. The targets of therapy with chronic hypertension are typically <160 mm Hg systolic and 90-105 mm Hg diastolic. Consistent blood pressures above 155/95 would be an indication to initiate antihypertensive medication. Aggressive normalization of blood pressure does not have benefit otherwise; it may have an undesirable impact on outcome. Aggressive treatment of hypertension does not reduce the risk for superimposed preeclampsia. Chronic hypertension is associated with an elevated risk of growth disturbance. It provides an indication for periodic assessments of the growth throughout . A reasonably aggressive approach is an ultrasound for growth at 28 weeks gestation with subsequent assessments at 4-6 week intervals thereafter (NIH, 2000). Chronic hypertension is associated with an elevated risk for morbidity and mortality. It provides an indication for formal antepartum surveillance. Such surveillance is typically initiated at 32 weeks gestation. The mechanics and performance characteristics of formal surveillance are discussed. movement monitoring is an adjunct form of surveillance. Blood pressure acceptable today without medication. Not on aspirin. No baseline labs available for review. No current indication for antihypertensive medication. Maternal Medicine recommendations: 1. Baseline 24 urine for total protein, CMP--orders provided 2. Goal blood pressures <155/95--goals reviewed with patient 3. Instructed to perform home blood pressure monitoring and record values were reviewed--resources provided 4. Aspirin ( 162 mg) --prescription provided 5. Serial growth every four weeks 6. Daily kick count starting at 28 weeks 7. Weekly 10 point biophysical profile starting at 32 weeks 8. Delivery initiation at 37 weeks due to dichorionic twin gestation and chronic hypertension 9. Would benefit from and weight reduction Tachycardia 05/31/2008 Overview (12/14/2019): Previously wore a holter monitor but said Doctors were not worried Maternal echocardiogram (2019) unremarkable 7 day Holter [2019]: demonstrates sinus rhythm and sinus tachycardia, average heart rate of 113 bpm. There were rare isolated APCs and PVCs and 2 brief episodes of SVT up to 14 beats. The patient did not record any symptoms. Assessment & Plan (11/22/2019 2:36 PM CDT): Heart rate today improved from previous episodes. Continues to have palpitations. Has consultation with Dr. Malhotra from Cardiology on 11/24/2019. Mailed her Holter monitor but has not received the results. Our office has learned that the Holter monitor was never received and is still listed as ? in transit? by the device company. Maternal Medicine recommendations: 1. Keep consultation appointment Dr. Malhotra 2. 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 Continues to have palpitations frequently but denies chest pain. Upper limit of acceptable heart rate in is 115 beats per minute; patient frequently above this value. Has a scheduled adult Cardiology evaluation on October 17, 2019. 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 Continues to have palpitations frequently but denies chest pain. Maternal Medicine recommendations: 1. Cardiology consultation with Holter monitor and adult echocardiogram--referral resources initiated today Bipolar disorder Overview (08/23/2019): No longer feels like this is active Assessment & Plan (11/22/2019 2:27 PM CDT): Denies interval estephanie. Maintained on Seroquel. Assessment & Plan (09/20/2019 12:13 PM CDT): Mood appears appropriate today. Unable to connect with mental health counselor due to COVID-19 limitations. Maternal Medicine recommendations: 1. Continue to reassess mood at visits 2. Establish care with mental provider after COVID-19 limitations resolve Assessment & Plan (08/23/2019 11:48 AM CDT): Mood appears appropriate today. At risk for mood deterioration both antepartum and . Maternal Medicine recommendations: 1. Strongly encouraged to establish care with a mental health provider 2. Continue to reassess mood at visits--referral assistance initiated today Insomnia Overview (08/23/2019): On seroquel Assessment & Plan (09/20/2019 12:15 PM CDT): Seroquel: [place] FDA safety category C. Late third trimester exposure is associated with withdrawal symptoms. Maternal Medicine recommendations: 1. Patient instructed to notify Freight Router of her use of Seroquel as the newborns are at increased risk of withdrawal and should have increased supervision in the first few days of life Assessment & Plan (08/23/2019 11:49 AM CDT): Seroquel: [place] FDA safety category C. Late third trimester exposure is associated with withdrawal symptoms. Maternal Medicine recommendations: 1. Patient instructed to notify Freight Router of her use of Seroquel as the newborns are at increased risk of withdrawal and should have increased supervision in the first few days of life Anxiety Overview (11/22/2019): previously used Xanax and Klonopin Assessment & Plan (11/22/2019 2:41 PM CDT): Previously on zoloft and paxil but did not have a good experience with either of these medications. Having increased anxiety over the thought of her upcoming delivery. She continues to desire avoiding any medication management at this time over concerns for the . Maternal Medicine recommendations: 1. recommend reconnecting with a psychiatrist 1. I emphasized that a psychiatrist rather than a general practitioner or family physician should prescribe mood medications for her in the future--it has been her general practitioner who prescribed Xanax and Klonopin for her anxiety in the past 2. Strongly emphasized the importance of avoiding medications such as benzodiazepines which are highly addictive, especially given her previous addiction to heroin 3. recommend referral to a clinical pharmacist Social History Tobacco Use Types Packs/Day Years Used Date Smoking Tobacco: Former Cigarettes 0.3 2 2 010 - 2011 Smokeless Tobacco: Never Alcohol Use Standard Drinks/Week Comments Never 0 (1 standard drink = 0.6 oz pur e alcohol) AUDIT-C Answer Date Recorded Q1: How often do you have a drink containing alc ohol? Never 10/25/2019 Average Number of Drinks Not on file 020 Frequency of Binge Drinking Not on file 09/29 Sex and Gender Information Value Date Recorded Sex Assigned at Not on file Gender Identity Not on file Sexual Orientation Not on file Last Filed Vital Signs Vital Sign Reading Time Taken Comments Blood Pressure 144/76 01/09/2020 4:05 PM CDT Pulse 106 01/09/2020 4:05 PM CDT Temperature 36.6 ??C (97.8 ??F) 01/09/2020 4:05 PM CD T Respiratory Rate 20 11/08/2019 10:3 0 AM CDT Oxygen Saturation 96% 11/24/2019 3:35 PM CDT Inhaled Oxygen Concentration - - Weight 134.4 kg (296 lb 3.2 oz) 11/29/2019 9:52 AM CDT Height 157.5 cm (5' 2 ) 11/29/2019 9:52 AM CDT Body Mass Index 54.18 11/29/2019 9:52 AM CDT Plan of Treatment Not on file Care Teams Parking Cashier Relationship Specialty Start Date End Date Eliud Zaman MD [address] [place] [address] [phone] PCP - General Family Medicine 10/17/19 Danielle Malhotra DO [address] [place] [address] [address] [place] [address] Cardiovascular Disease 11/24/19
--- OUTSIDE RECORDS SUMMARY | 2024-06-23 05:14 | XMS_ITS | Clinical Summary ---
Author Organization [facility] Tirendo Address [address] [place] [address] Care Team Providers Care Cartographic Designer Name Role Phone Eliud Zaman MD Primary Care Provider [phone] Danielle Malhotra DO Unavailable [phone] Source Comments [facility],non-owned Affiliates and Associated Physician Practices is amultiple site organization consisting of ambulatory clinics and hospital sitesin [place], [place], [place] and [place]. This disclosure is being madepursuant to the Care Everywhere program and may not contain all information available regarding this patient. Last updated 18.[facility] Allergies Active Allergy Reactions Criticality Noted Date [...] Glucagon (BAQSIMI ONE PACK) 3 MG/DOSE POWD [place] 3 mg into the nose as needed [...] within 1 month--to be ordered by referring tongue presser Maternal morbid obesity, antepartum 08/23/2019 Assessment & Plan (09/20/2019 12:17 PM CDT): Total weight gain of 24 lb to date. Has a visit to go over dietary recommendations at [facility] in the next few weeks. Maternal Medicine [...] 1. To review blood pressure log with tongue presser 2. Report blood pressure values greater than [...] 1. To review blood pressure log with tongue presser 2. Strongly encouraged to report blood pressure [...] Medicine recommendations: 1. Patient instructed to notify Cheesemaker Helper of her use of Seroquel as the newborns are at increased risk of withdrawal and should have increased supervision in the first few days of life Assessment & Plan (08/23/2019 11:49 AM CDT): Seroquel: [place] FDA safety category C. Late third trimester exposure is associated with withdrawal symptoms. Maternal Medicine recommendations: 1. Patient instructed to notify Cheesemaker Helper of her use of Seroquel as the [...] 3. recommend referral to a clinical pharmacist Family History Medical History Relation Name Comments CAD (Coronary Artery Disease) Brother CAD (Coronary Artery Disease) Father Cancer - Breast Mother Diabetes - Type 2 Mother Hypertension Mother Relation Name Status Comments Brother Alive Father (Age 50) pt adopted and just found information recently Mother Alive Social History Tobacco Use Types Packs/Day Years [...] 11/29/2019 9:52 AM CDT Plan of Treatment Health Maintenance Due Date Last Done Comments PAP SMEAR 1995 HIV SCREENING 2010 HEPATITIS C SCREENING 01/03/2013 DTAP/TDAP/TD VACCINES (1 - Tdap) 2014 HEPATITIS B VACCINE (1 of 3 - 19+ 3-dose series) 2014 COVID-19 VACCINE ( - 2023-2 5 season) 2024 INFLUENZA VACCINE (#1) 2024 ZOSTER VACCINE (1 of 2) 2045 HIB VACCINE Aged Out No longer eligi ble based on patient's age to complete this topic HPV VACCINE Aged Out No longer eligi ble based on patient's age to complete this topic MENINGOCOCCAL (Group B) VACCINE Aged Out No longer eligible based on patient's age to complete this topic MENINGOCOCCAL VACCINE Aged Out No joey karen eligible based on patient's age to complete this topic PNEUMOCOCCAL VACCINE Aged Out No long er eligible based on patient's age to complete this topic Care Teams Cartographic Designer Relationship Specialty Start Date End Date Eliud Zaman MD [address] [place] [id number] PCP - General Family Medicine 10/17/19 Danielle Malhotra DO [address] [place] [address] Cardiovascular Disease 11/24/19
--- OUTSIDE RECORDS SUMMARY | 2024-06-23 05:15 | XMS_ITS | Referral Summary ---
Author Organization [facility] Address [address] [place] [address] Care Team Providers Care Thread Roller Name Role Phone Eliud Zaman MD Primary Care Provider [phone] Allergies Active Allergy Reactions Criticality Noted Date Comments Amoxicillin Hives,Other (See comments) High 05/03/20 11 Reaction: Hives, Medications medroxyPROGEST ERone (DEPO-PROVERA) 150 mg/mL injection inject 1 milliliter by intramuscular route every 3 months 0 vial 0 7 Active Additional Information Patient not taking.Reported on 10/02/2022 dextroamphetam ine-amphetamin e (ADDERALL) 30 mg tablet take 1 tablet by oral route every day before breakfast 0 0 7 Active DRYSOL 20 % external solutionIndica tions:Hyperhid rosis APPLY 1 BY TRANSDERMAL ROUTE EVERY DAY FOR 6 MONTHS 3 8 Active clonazePAM (KlonoPIN) 0.5 mg tablet TAKE 1 TABLET BY MOUTH 3 TIMES A DAY WITH MEALS 2 8 Active ondansetron (ZOFRAN) 4 mg tablet TAKE 1 TABLET BY ORAL ROUTE 2 TIMES A DAY NEEDED 2 8 Active propranolol LA (INDERAL LA) 60 mg 24 hr capsule Take 60 mg by mouth daily. 3 8 Active drospirenone-e thinyl estradiol (HAN,OCELLA ) 3-0.03 mg per tablet Take 1 tablet by mouth daily 4 9 Active gabapentin (NEURONTIN) 400 mg capsule 0 2 Active gabapentin (NEURONTIN) 300 mg capsule 1 2 Active dextroamphetam ine-amphetamin e XR (ADDERALL XR) 30 mg 24 hr capsule 0 2 Active dextroamphetam ine-amphetamin e XR (ADDERALL XR) 10 mg 24 hr capsule 0 2 Active biotin 10,000 mcg capsule Take by mouth Acti ve lisinopriL (PRINIVIL,ZEST RIL) 10 mg tablet Take 1 tablet (10 mg total) by mouth daily 3 Active QUEtiapine (SEROquel) 50 mg tablet Take by mouth nightly 3 Active clotrimazole 1 % cream Apply topically 2 (two) times a day Apply to rash twice daily as directed. Collaborating physician Adrian Ramírez MD 60 g 4 Active fluconazole (DIFLUCAN) 150 mg tabletIndicati ons:Tinea corporis Take 1 tablet (150 mg total) by mouth as directed 1 p.o. daily for 5 days then 1 p.o. weekly thereafter. Collaborating physician Adrian Ramírez MD 9 tablet 4 Active hydrOXYzine (ATARAX) 25 mg tabletIndicati ons:Tinea corporis,Pruri tic dermatitis Take 1-2 tablets (25-50 mg total) by mouth every 6 (six) hours P.r.n. itch and rash. Collaborating physician Adrian Ramírez MD 30 tablet 4 Active selenium sulfide (SELSEB) 2.25 % shampooIndicat ions:Seborrhei c Dermatitis Apply topically daily Wash the areas of rash with the selenium sulfide shampoo daily. Rinse thoroughly. 120 mL 1 4 Active Active Problems Problem Noted Date Diagnosed Date Tinea corporis 11/04/2023 Pruritic dermatitis 11/04/2023 Morbid (severe) obesity due to excess calories 0 10/02/2022 Body mass index 40.0-44.9, adult ([facility]) 10/02 Palpitations 10/02/2022 ADHD (attention deficit hyperactivity disorder) 08/16/2018 Secondary amenorrhea 08/16/2018 Tachycardia 07/17/2016 Overview (09/04/2016): Tachycardia Prehypertension 07/17/2016 Overview (09/04/2016): Pre-hypertension Body mass index 40+ - severely obese 07/17/2016 Overview (09/04/2016): Morbid obesity with BMI of 45.0-49.9, adult At risk for breast cancer 08/30/2015 Immunizations Name Administration Dates Next Due Influenza, Quadrivalent, Spl it, Preservative Free, Intramuscular 04/08/2018 Influenza, Trivalent, IM (MDV) 01/31/2014 Tdap 01/13/2020 Social History Tobacco Use Types Packs/Day Years Used Date Smoking Tobacco: Former Cigarettes Q uit: 2012 Smokeless Tobacco: Never Alcohol Use Standard Drinks/Week Comments No 0 (1 standard drink = 0.6 oz pur e alcohol) Personal Safety Answer Date Recorded Have you ever been in or are you currently in a harmful physical or emotional relationship or is someone making you feel afraid or unsafe? 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 Gender Identity Not on file Sexual Orientation Not on file Last Filed Vital Signs Vital Sign Reading Time Taken Comments Blood Pressure 159/105 11/04/2023 6:17 PM CDT Pulse 113 11/04/2023 6:17 PM CDT Temperature 36.7 ??C (98.1 ??F) 11/04/2023 6:17 PM CD T Respiratory Rate 18 11/04/2023 6:17 PM CDT Oxygen Saturation 98% 11/04/2023 6:17 PM CDT Inhaled Oxygen Concentration - - Weight 89.8 kg (198 lb) 11/04/2023 6:17 PM CDT Height 152.4 cm (5') 10/02/2022 2:57 PM CDT Body Mass Index 38.67 10/02/2022 2:57 PM CDT Plan of Treatment Not on file Insurance [employer] [facility] Care Teams Thread Roller Relationship Specialty Start Date End Date Eliud Zaman MD PCP - General 08/28/16
--- OUTSIDE RECORDS SUMMARY | 2024-06-23 05:15 | XMS_ITS | Encounter Summary ---
Author Organization 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 Historical Provider [facility] TE[facility] SALMON Final Result documented in this encounter Visit Diagnoses Not on filedocumented in this encounter Care Teams Spinning Bath Patroller Relationship Specialty Start Date End Date Eliud Zaman MD PCP - General 08/28/16 documented as of this encounter
--- OUTSIDE RECORDS SUMMARY | 2024-06-23 05:15 | XMS_ITS | Clinical Summary ---
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 Gender Identity Not on file Sexual Orientation Not on file Plan of Treatment Health Maintenance Due Date Last Done Comments Hepatitis C Virus (HCV) Screening 1995 Hepatitis B Immunization (1 of 3 - 19+ 3-dose series) 2014 Pap Smear 01/09/2016 Influenza Immunization (#1) 2024 04/08/2018 SARS-COV-2 Immunization (2023- season) 2024 Respiratory Syncytial Virus (RSV) Immunization (Adult) (1 - 1-dose 75+ series) 2070 DTaP/Tdap/Td Immunization Discontinued 01/13/2020 TdaP Immunization Completed 01/13/2020 Meningococcal Immunization (ACWY) Aged Out No longer eligible based on patient's age to complete this topic Pneumococcal Immunization Combined Aged Out No longer eligible b ased on patient's age to complete this topic Rotavirus Immunization Aged Out No lo nger eligible based on patient's age to complete this topic
--- OUTSIDE RECORDS SUMMARY | 2024-06-23 05:15 | XMS_ITS | Encounter Summary ---
Author Organization [facility] Address [address] [place] [address] Care Team Providers Care Clinical Unit Educator Name Role Phone Eliud Zaman MD Primary Care Provider [phone] Encounter Details Date Type Department Care Team (Late st Contact Info) Description 07/17/2016 Orders Only [facility] ProviderYared MD [address] [place] [id number] Social History Tobacco Use Types Packs/Day Years Used Date Smoking Tobacco: Never Alcohol Use Standard Drinks/Week Comments No 0 (1 standard drink = 0.6 oz pur e alcohol) Comments Unknown Sex and Gender Information Value Date Recorded Sex Assigned at Not on file 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 Historical Provider [facility] PROCE DURES Final Result * CARDIOLOGY REPORT (07/17/2016) Anatomical Region Laterality Modality Other Narrative 07/17/2016 Ordered by an unspecified provider. Historical Provider [facility] PROCE DURES Final Result documented in this encounter Visit Diagnoses Not on filedocumented in this encounter Care Teams Clinical Unit Educator Relationship Specialty Start Date End Date Eliud Zaman MD PCP - General 08/28/16 documented as of this encounter
--- OUTSIDE RECORDS SUMMARY | 2024-06-23 05:15 | XMS_ITS | Patient Health Summary ---
Author Organization [facility] Address [address] [place] [address] Care Team Providers Care Dope Mixer Name Role Phone Eliud Zaman MD Primary Care Provider [phone] Danielle Malhotra DO Unavailable [phone] Note from [facility],non-owned Affiliates and Associated Physician Practices is amultiple site organization consisting of ambulatory clinics and hospital sitesin [place], [place] and [place]. This disclosure is being madepursuant to the Care Everywhere program and may not contain all information available regarding this patient. Last updated 18.[facility] Allergies * Amoxicillin(Urticaria) -Medium Criticality * Codeine(Nausea and/or Vomiting) * Penicillins(Urticaria) -Medium Criticality Medications * Be aware that medications may not be up to date on this document. Alwaysverify current medications with the patient. * Vit-Fe Fumarate-FA ( VITAMIN) 28-0.8 MG tablet Take 1 tablet by mouth once daily * QUEtiapine Fumarate (SEROQUEL PO) Take 50 mg by mouth at bedtime * aspirin (ASPIRIN) 81 MG chew tablet(Started 08/23/2019) Take 2 tablets by mouth once daily Reasons: preeclampsia * doxylamine (UNISOM SLEEPTABS) 25 MG tablet Take 25 mg by mouth nightly as needed for Insomnia Reasons: Trouble Sleeping * riboflavin 100 MG tablet(Started 11/22/2019) Take 4 tablets by mouth once daily Reasons: Frequent Headaches 11 refills by 11/21/2020 * insulin glargine (LANTUS SOLOSTAR) pen(Started 11/29/2019) Inject 16-30 Units subcutaneously at bedtime Start with 16 units. Increase as directed. 2 refills by 11/28/2020 * Insulin Pen Needle 32G X 4 MM MISC(Started 11/29/2019) Use 1 Each once daily 2 refills by 11/28/2020 * Glucagon (BAQSIMI ONE PACK) 3 MG/DOSE POWD(Started 11/29/2019) [place] 3 mg into the nose as needed 1 refill by 11/28/2020 * labetalol (NORMODYNE; TRANDATE) 100 MG tablet(Started 11/29/2019) Take 2 tablets by mouth every 12 hours Reasons: High Blood Pressure Disorder 3 refills by 11/28/2020 * metFORMIN ER 24hr (GLUCOPHAGE XR) 500 MG tablet(Started 11/29/2019) Take 2 tablets by mouth 2 times daily * ONETOUCH DELICA LANCETS 33G MISC(Started 11/29/2019) Use 1 Each 4 times daily 2 refills by 11/28/2020 * blood glucose (ONETOUCH VERIO) test strip(Started 11/29/2019) Use 1 strip 4 times daily 2 refills by 11/28/2020 * calcium carbonate (TUMS) 500 MG chew tablet Take 1 tablet by mouth daily with food * cetirizine (ZYRTEC) 10 MG tablet(Started 12/13/2019) Take 1 tablet by mouth once daily 5 refills by 12/12/2020 Active Problems Problem Noted Date Diagnosed Date Gestational diabetes mellitus (GDM) 11/15/2019 Elevated WBC count 11/13/2019 Maternal morbid obesity, antepartum 08/23/2019 Previous delivery, antepartum condition or complication 08/23/2019 Twin , dichorionic/diamniotic, second t rimester 08/21/2019 Chronic hypertension during 05/31/2017 Tachycardia 05/31/2008 Bipolar disorder Insomnia Anxiety Social History Tobacco Use Types Packs/Day Years [...] Mass Index 54.18 11/29/2019 9:52 AM CDT Procedures * BIOPHYSICAL PROFILE W NST(Performed 01/09/2020) Performed for Gestational diabetes mellitus (GDM) in third trimester controlled on oral hypoglycemic drug (HCC), Maternal morbid obesity, antepartum (HCC), Twin , dichorionic/diamniotic, second trimester (HCC), Chronic hypertension during (HCC) * BIOPHYSICAL PROFILE W NST(Performed 01/05/2020) Performed for Gestational diabetes mellitus (GDM) in third trimester controlled on oral hypoglycemic drug (HCC), Maternal morbid obesity, antepartum (HCC), Twin , dichorionic/diamniotic, second trimester (HCC), Chronic hypertension during (HCC) * BIOPHYSICAL PROFILE W NST(Performed 01/02/2020) Performed for Gestational diabetes mellitus (GDM) in third trimester, gestational diabetes method of control unspecified (HCC), Maternal morbid obesity, antepartum (HCC), Twin , dichorionic/diamniotic, second trimester (HCC), Chronic hypertension during (HCC) * BIOPHYSICAL PROFILE W NST(Performed 12/29/2019) Performed for Gestational diabetes mellitus (GDM) in third trimester, gestational diabetes method of control unspecified (HCC), Maternal morbid obesity, antepartum (HCC), Twin , dichorionic/diamniotic, second trimester (HCC), Chronic hypertension during (HCC) * BIOPHYSICAL PROFILE W NST(Performed 12/26/2019) Performed for Gestational diabetes mellitus (GDM) in third trimester, gestational diabetes method of control unspecified (HCC), Maternal morbid obesity, antepartum (HCC), Twin , dichorionic/diamniotic, second trimester (HCC), Chronic hypertension during (HCC) * BIOPHYSICAL PROFILE W NST(Performed 12/22/2019) Performed for Gestational diabetes mellitus (GDM) in third trimester, gestational diabetes method of control unspecified (HCC), Maternal morbid obesity, antepartum (HCC), Twin , dichorionic/diamniotic, second trimester (HCC), Chronic hypertension during (HCC) * BIOPHYSICAL PROFILE W NST(Performed 12/19/2019) Performed for Gestational diabetes mellitus (GDM) in third trimester, gestational diabetes method of control unspecified (HCC), Maternal morbid obesity, antepartum (HCC), Twin , dichorionic/diamniotic, second trimester (HCC), Chronic hypertension during (HCC) * HOLTER MONITOR(Performed 12/14/2019) Performed for Tachycardia * SONOGRAM - COMPLETE(Performed 12/13/2019) Performed for Gestational diabetes mellitus (GDM) in third trimester, gestational diabetes method of control unspecified (HCC), Maternal morbid obesity, antepartum (HCC), Twin , dichorionic/diamniotic, second trimester (HCC), Chronic hypertension during (HCC), Tachycardia * BIOPHYSICAL PROFILE W NST(Performed 12/05/2019) Performed for Gestational diabetes mellitus (GDM) in second trimester, gestational diabetes method of control unspecified (HCC), Maternal morbid obesity, antepartum (HCC), Twin , dichorionic/diamniotic, second trimester (HCC), Chronic hypertension during (HCC) * BIOPHYSICAL PROFILE WO NST(Performed 11/29/2019) Performed for Twin , dichorionic/diamniotic, second trimester (HCC), Decreased movements in third trimester, single or unspecified fetus (HCC) * EKG 12-LEAD(Performed 11/24/2019) Performed for Tachycardia * SONOGRAM - COMPLETE(Performed 11/22/2019) Performed for Gestational diabetes mellitus (GDM) in second trimester, gestational diabetes method of control unspecified (HCC), Maternal morbid obesity, antepartum (HCC), Previous delivery,antepartum condition or complication (HCC), Twin , dichorionic/diamniotic, second trimester (HCC), Chronic hypertension during (HCC), Tachycardia * DIFFERENTIAL MANUAL REFLXED III(Performed 11/08/2019) * CBC W AUTO DIFFERENTIAL(Performed 11/08/2019) * COMPREHENSIVE METABOLIC PANEL(Performed 11/08/2019) * SONOGRAM - COMPLETE(Performed 10/25/2019) Performed for Maternal morbid obesity, antepartum (HCC), Twin , dichorionic/diamniotic, second trimester (HCC), Chronic hypertension during (HCC) * ECHOCARDIOGRAM 2D WITH DOPPLER(Performed 10/17/2019) Performed for Twin , dichorionic/diamniotic, second trimester (HCC), Benign essential hypertension, antepartum (HCC), Depression affecting (HCC), Tachycardia, Chronic hypertension during (HCC), Maternal morbid obesity, antepartum (HCC), Bipolar affective disorder, remission status unspecified (HCC), Insomnia, unspecified type, Previous delivery, antepartum condition or complication (HCC) * SONOGRAM - COMPLETE(Performed 09/20/2019) Performed for Evaluate anatomy not seen on prior sonogram, Maternal morbid obesity, antepartum (HCC) * PROTEIN CREATININE RATIO URINE TIMED PNL(Performed 08/25/2019) * ALPHA FETOPROTEIN BLOOD MATERNAL(Performed 08/25/2019) * CBC W/O DIFFERENTIAL(Performed 08/25/2019) * COMPREHENSIVE METABOLIC PANEL(Performed 08/25/2019) * SONOGRAM - COMPLETE(Performed 08/23/2019) Performed for Twin , dichorionic/diamniotic, second trimester (HCC) Results * BIOPHYSICAL PROFILE W NST (01/09/2020 2:46 PM CDT) Only the most recent of8 resultswithin the time period is included. Anatomical Region Laterality Modality Other 01/09/2020 2:46 PM CDT Narrative 01/10/2020 9:20 AM CDT ? [facility] Maternal Medicine ? M[facility] & Care Center ?PHONE: ??FAX: FETUS A Pat. Name: ?GENESIS BANEGAS. No: ?[id number] Study Date: ?? 01/09/2020 ??2:46pm , Age: ? 1995, 25 Pregnancies: ?? 2, Para 1 Height: ? 62 in Weight: ? 263 lb LMP: ?Unknown GA by Base: ?? 37w1d ?? MARCI: 01/29/2020 GA by US: ? 38w1d ?? MARCI: 01/22/2020 GA Selected: ??37w1d (From Known E) MARCI: ?01/29/2020 Referring MD: Matias Li MD Valet Runner: ??Fatoumata Raymundo RDMS CPT4: ? 84173m8,60725j0 BMI: ?48.1 Hist/Ind: ? Dichorionic twins ?GDM, on insulin ?Class III obesity ?Episodic maternal tachycardia MEASUREMENTS & AGE ? GROWTH EVALUATION Measurement ??GA ? Range ? Srce %for GA Ratios ----- ---- ------- AC ??34.1 cm 38w0d (41y1w-27g4v) Hadl AC ??85% FL/AC ??0.22 (0.20 - 0.24) FL ?? 7.5 cm 38w3d (63o8c-27l8n) Hadl FL ??79% GA for sonogram 38w1d (54q2n-03i9f) ?? Weight Estimate: based on (AC,FL) Avg ? Weight: 3430 gm (2902-3958gm) Had ? : 7lbs, 8oz ? Normal: 3058 gm (2293- 3822gm) Had ? Wt% ? 83% for 37w1d Heart Rate: 161 bpm Amniotic Fluid Index: 04.7cm (Deepest Pocket) Biophysical Profile: 01/07 Breathin ?? Tone: 2 ?? NST: 2 Movement: ??2 ?? AFV: ??2 EVAL, PLACENTA Presentation: cephalic MaternalSide: left Heart Rate: 161 bpm Gender: female Amniotic Fluid Volume: normal CLINICAL SUMMARY Study Number: 14 ?? The FHR baseline was 130 bpm for twin A and 145 bpm for twin B during today's NST. Both twins had moderate FHR variability and reactive tracings. No decelerations were detected. IMPRESSION: ?? 1) Dichorionic twin gestation, 37w1d 2) The accuracy of estimated weights is limited at term, at higher maternal BMI's, and in multiple gestations but today's biometry is again consistent with appropriate growth of twin A and accelerated growth of twin B 3) The difference in estimated weight is 11% 4) The amniotic fluid volume is within normal limits on both sides of the dividing membrane 5) Both twins currently have reassuring biophysical profiles RECOMMEND: ?? Close maternal movement monitoring while awaiting delivery ( scheduled 01/11, per staff report) Thank you for allowing us the opportunity to care for your patient. Isha Buitrago MD <Electronic Signature> ??01/10/2020 09:20am FETUS B Pat. Name: ?GENESIS BANEGAS No: ?[id number] Study Date: ?? 01/09/2020 ??2:46pm , Age: ? 1995, 25 Pregnancies: ?? 2, Para 1 Height: ? 62 in Weight: ? 263 lb LMP: ?Unknown GA by Base: ?? 37w1d ?? MARCI: 01/29/2020 GA by US: ? 38w6d ?? MARCI: 01/17/2020 GA Selected: ??37w1d (From Known E) MARCI: ?01/29/2020 Referring MD: Matias Li MD Valet Runner: ??Fatoumata Raymundo RDMS CPT4: ? 06915w4,41340q2 Hist/Ind: ? Dichorionic twins ?GDM, on insulin ?Class III obesity ?Episodic maternal tachycardia MEASUREMENTS & AGE ? GROWTH EVALUATION Measurement ??GA ? Range ? Srce %for GA Ratios ----- ---- ------- BPD ??8.8 cm 35w3d (69m6s-66g7s) Hadl BPD 19% FL/BPD 0.85 (0.71 - 0.87) HC ??35.7 cm 41w6d (27k6e-38y2f) Hadl HC ??98% FL/AC ??0.21 (0.20 - 0.24) AC ??35.8 cm 39w5d (45j5o-98r0w) Hadl AC ??>99 HC/AC ??1.00 (0.91 - 1.10) FL ?? 7.5 cm 38w2d (11b3l-69t2f) Hadl FL ??77% CI ? 0.65 (0.70 - 0.86* GA for sonogram 38w6d (04b2x-32k7z) ?? Weight Estimate: based on (BPD,HC,AC,FL) Avg ?Weight: 3850 gm (3280-4420gm) Had ? : 8lbs, 7oz ? Normal: 3058 gm (2293- 3822gm) Had ? Wt% ? >97 for 37w1d Heart Rate: 134 bpm Amniotic Fluid Index: 03.1cm (Deepest Pocket) Biophysical Profile: 01/07 Breathin ?? Tone: 2 ?? NST: 2 Movement: ??2 ?? AFV: ??2 EVAL, PLACENTA Presentation: breech MaternalSide: right Heart Rate: 134 bpm Gender: male Amniotic Fluid Volume: normal CLINICAL SUMMARY Isha Buitrago MD <Electronic Signature> ??01/10/2020 09:20am Rambo White MD [facility] ORDERABLES * MONITOR - HOLTER (12/14/2019) Impressions Martine Araiza - 12/14/2019 [facility] - Heart & Vascular - Holter Monitor Name: Genesis Banegas : 1995 ?? Primary Care Physician:Eliud Zaman MD Referring Physician: Danielle Malhotra, DO Clinical Indication: ??Tachycardia. ??A 7 day holter was placed on 11/24/19. Findings: 7 day holter demonstrates sinus rhythm with an average heart rate of 113 bpm. The minimum HR was 66 bpm at 7:22am and the maximum HR was 169 bpm at 4:27pm. ??There were 22 isolated atrial premature complexes and 28 isolated ventricular premature complexes. ??There were 2 brief episodes of SVT up to 14 beats at 182 bpm. ??There were no bradycardic episodes. ??The patient did not record any symptoms. ?? Conclusion: 1. ??7 day Holter demonstrates sinus rhythm and sinus tachycardia, average heart rate of 113 bpm. 2. ??There were rare isolated APCs and PVCs and 2 brief episodes of SVT up to 14 beats. 3. ??The patient did not record any symptoms. Thank you. Please do not hesitate to call if there are any questions. Darrius Martinez MD [facility] - Heart & Vascular Care Office Danielle Malhotra DO CARDIAC SERVICES OR DERABLES * SONOGRAM - COMPLETE (12/13/2019 2:33 PM CDT) Only the most recent of5 resultswithin the time period is included. Anatomical Region Laterality Modality Other 12/13/2019 2:33 PM CDT Narrative 12/13/2019 4:21 PM CDT ? [facility] ? [facility] Care Center ?PHONE: ??FAX: FETUS A Pat. Name: ?GENESIS BANEGAS Pat. No: ?[id number] Study Date: ?? 12/13/2019 ??2:33pm , Age: ? 1995, 24 Height: ? 62 in Weight: ? 236 lb LMP: ?Unknown GA by Base: ?? 33w2d ?? MARCI: 01/29/2020 GA Selected: ??33w2d (From [facility]) MARCI: ?01/29/2020 Referring MD: Matias Li MD Valet Runner: ??Zhane Garcia, [facility], [facility] CPT4: ? 63036x3,57503 BMI: ?43.16 Hist/Ind: ? Dichorionic twins ?Intermittent maternal tachycardia ?Class III obesity ?GDM Heart Rate: 158 bpm Amniotic Fluid Index: 04.7cm (Deepest Pocket) Biophysical Profile: 01/05 Breathin ?? Tone: 2 ?? Movement: ??2 ?? AFV: ??2 EVAL, PLACENTA Presentation: cephalic MaternalSide: left:cervix Heart Rate: 158 bpm Amniotic Fluid Volume: normal CLINICAL SUMMARY Study Number: 7 ?? A dichorionic twin intrauterine is seen. ??The DVP appears normal for twin A, and normal for twin B. ?? NST reviewed: Twin A: not able to to be monitored continuously due to position and maternal habitus; no decelerations noted on limited monitoring Twin B: baseline 145 bpm, moderate variability, appropriate accels, no significant decels; reactive NST IMPRESSION: Diamniotic Dichorionic Twins, live, intrauterine at 33w2d ?? Amniotic fluid volume: Normal for twin A, and normal for twin B ?? Biophysical profile: Reassuring for twin A, and reassuring for twin B ?? RECOMMEND: Increase to twice weekly testing at 34 weeks Repeat growth in 1 week Please be advised that these recommendations are being made in the best interest of our patients during the COVID 19 Pandemic. Thank you for allowing us the opportunity to care for your patient. ?? Damion Adames MD <Electronic Signature> ??12/13/2019 04:09pm FETUS B Pat. Name: ?GENESIS BANEGAS. No: ?[id number] Study Date: ?? 12/13/2019 ??2:33pm , Age: ? 1995, 24 Height: ? 62 in Weight: ? 236 lb LMP: ?Unknown GA by Base: ?? 33w2d ?? MARCI: 01/29/2020 [facility]: [facility] MARCI: ?01/29/2020 Referring MD: Matias Li MD Valet Runner: ??Zhane Garcia, RDMS, RDCS CPT4: ? 77750l0,91493 Hist/Ind: ? Dichorionic twins ?Intermittent maternal tachycardia ?Class III obesity ?GDM Heart Rate: 145 bpm Amniotic Fluid Index: 05.9cm (Deepest Pocket) Biophysical Profile: 03/09 Breathin ?? Tone: 2 ?? NST: 2 Movement: ??2 ?? AFV: ??2 EVAL, PLACENTA Presentation: variable MaternalSide: fundal:right Heart Rate: 145 bpm Amniotic Fluid Volume: normal CLINICAL SUMMARY Damion Adames MD <Electronic Signature> ??12/13/2019 04:09pm Myah Luther MD [facility] ORDERABLES * BIOPHYSICAL PROFILE WO NST (11/29/2019 11:58 AM CDT) Anatomical Region Laterality Modality Other 11/29/2019 11:5 8 AM CDT Narrative 11/29/2019 1:14 PM CDT ? [facility]aternal [facility] ? [facility] Care Center ?PHONE: ??FAX: FETUS A Pat. Name: ?GENESIS BANEGAS Pat. No: ?[id number] Study Date: ?? 11/29/2019 ??11:58am , Age: ? 1995, 24 Height: ? 62 in Weight: ? 263 lb LMP: ?Unknown GA by Base: ?? 31w2d ?? MARCI: 01/29/2020 GA Selected: ??31w2d (From [facility]) MARCI: ?01/29/2020 Referring MD: Matias Li MD Valet Runner: ??Zhane Garcia, ANIYAH, RDCS CPT4: ? 05647,45411x6 BMI: ?48.1 Hist/Ind: ? Decreased movement ?DC/DA twins ?Maternal tachycardic episodes ?GDM Heart Rate: 163 bpm Amniotic Fluid Index: 07.3cm (Deepest Pocket) Biophysical Profile: 11/07 Breathin ?? Tone: 2 ?? NST: 0 Movement: ??2 ?? AFV: ??2 EVAL, PLACENTA Presentation: cephalic MaternalSide: left Placenta: posterior Heart Rate: 163 bpm Amniotic Fluid Volume: normal CLINICAL SUMMARY Study Number: 5 ?? A limited exam was performed, due to the complaint of decreased movement, in addition to testing. The NST was uninterpretable for both twins and was significantly limited by maternal discomfort and inability to be in a recumbent position for the exam. IMPRESSION: Diamniotic Dichorionic Twins, live, intrauterine at 31w2d ?? Amniotic fluid volume: Normal for twin A, and normal for twin B ?? Biophysical profile: equivocal for twin A, and reassuring for twin B ?? Today's findings were communicated to Genesis and the referring obstetric group in realtime. RECOMMEND: I recommend repeat biophysical profile within 24 hr which can be performed at the office of the referring blast furnace helper If the repeat assessment is still equivocal or is nonreassuring for twin A or B then maternal and reassessment should be performed in an obstetric triage, such as [facility] Twice weekly NST and weekly BPP starting at 32 weeks Serial growth every 4 weeks Please be advised that these recommendations are being made in the best interest of our patients during the COVID 19 Pandemic. Thank you for allowing us the opportunity to care for your patient. ?? Haider Lara MD <Electronic Signature> ??11/29/2019 01:13pm FETUS B Pat. Name: ?GENESIS BANEGAS Madina. No: ?[id number] Study Date: ?? 11/29/2019 ??11:58am , Age: ? 1995, 24 Height: ? 62 in Weight: ? 263 lb LMP: ?Unknown GA by Base: ?? 31w2d ?? MARCI: 01/29/2020 GA Selected: ??31w2d (From [facility]) MARCI: ?01/29/2020 Referring MD: Matias Li MD Valet Runner: ??Zhane Garcia, ANIYAH, RD CPT4: ? 57213,28235o0 Hist/Ind: ? Decreased movement ?DC/DA twins ?Maternal tachycardic episodes ?GDM Heart Rate: 134 bpm Amniotic Fluid Index: 06.1cm (Deepest Pocket) Biophysical Profile: 01/07 Breathin ?? Tone: 2 ?? NST: 0 Movement: ??2 ?? AFV: ??2 EVAL, PLACENTA Presentation: cephalic MaternalSide: right Placenta: anterior Heart Rate: 134 bpm Amniotic Fluid Volume: normal CLINICAL SUMMARY Haider Lara MD <Electronic Signature> ??11/29/2019 01:13pm Haider Lara MD [facility] ORDERABLES * EKG 12-LEAD (11/24/2019) Impressions Alanis Do - 11/24/2019 Sinus tachycardia Nonspecific T wave abnormality Abnormal ECG Interpreted by Dr. Malhotra Danielle Malhotra DO ECG ORDERABLES * (ABNORMAL) DIFFERENTIAL MANUAL REFLXED III (11/08/2019 11:56 AM CDT) Neutrophil Absolute 9293(H) 1500 - 7800 cells/uL [facility] Metamyelocytes Absolute 132(H) 0 cells/uL [facility] Lymphocytes Absolute 3643 850 - 3900 cells/uL [facility] Absolute Monocytes 0(L) 200 - 950 cells/uL [facility] Eosinophils Absolute 132 15 - 500 cells/uL [facility] Basophils Absolute 0 0 - 200 cells/uL [facility] Granulocytes % 70.4 % [facility] Metamyelocytes 1.0(H) % [facility] Lymphocytes % 27.6 % [facility] Monocytes % 0 % [facility] Eosinophils % 1.0 % [facility] Basophils % 0 % [facility] See Note See Below [facility] Comment: Although an automated CBC was ordered, our instrumentation detected an abnormality on your patient's specimen requiring us to perform a manual review. Test Performed at: [facility] [id number] [place] [address] ??[phone] YASMEEN DUARTE DO,MPH 11/08/2019 11:5 6 AM CDT 11/08/2019 11:58 AM CDT Danii Prabhakarmann [facility] - [facility]OLOG Y ORDERABLES Performing Organization Address [facility] de Phone Number [facility] [phone] [place] [address] * (ABNORMAL) CBC W AUTO DIFFERENTIAL (11/08/2019 11:56 AM CDT) [facility] White Blood Cell Count 13.2(H) 3.8 - 10.8 Thousand/u L [facility] RBC 4.26 3.80 - 5.10 Million/uL [facility] Hemoglobin 12.7 11.7 - 15.5 g/dL [facility] Hematocrit 37.4 35.0 - 45.0 % [facility] MCV 87.8 80.0 - 100.0 fL [facility] MCH 29.8 27.0 - 33.0 pg [facility] MCHC 34.0 32.0 - 36.0 g/dL [facility] RDW 13.8 11.0 - 15.0 % [facility] Platelet Count 260 140 - 400 Thousand/u L [facility] MPV 11.1 7.5 - 12.5 fL [facility] Comment: Test Performed at: [facility] [address] [place] [address] ??[phone] YASMEEN DUARTE DO,MPH 11/08/2019 11:5 6 AM CDT 11/08/2019 11:58 AM CDT Danii Lanceminaja [facility] LAB - HEMATOLOG Y ORDERABLES Performing Organization Address [facility] de Phone Number [facility] [address] [place] [address] * (ABNORMAL) COMPREHENSIVE METABOLIC PANEL (11/08/2019 11:56 AM CDT) Only the most recent of2 resultswithin the time period is included. [facility] Glucose 104(H) 65 - 99 mg/dL [facility] Comment: ? Fasting reference interval For someone without known diabetes, a glucose value between 100 and 125 mg/dL is consistent with prediabetes and should be confirmed with a follow-up test. BUN 8 7 - 25 mg/dL [facility] Creatinine 0.49(L) 0.50 - 1.10 mg/dL [facility] eGFR by MDRD 136 > OR = 60 mL/min/1.7 3m2 [facility] eGFR by MDRD 158 > OR = 60 mL/min/1.7 3m2 [facility] BUN/Creatinine Ratio 16 6 - 22 (calc) [facility] Sodium 137 135 - 146 mmol/L [facility] Potassium 3.8 3.5 - 5.3 mmol/L [facility] Chloride 103 98 - 110 mmol/L [facility] CO2 23 20 - 32 mmol/L [facility] Calcium 9.0 8.6 - 10.2 mg/dL [facility] Protein Total 6.3 6.1 - 8.1 g/dL [facility] Albumin 3.4(L) 3.6 - 5.1 g/dL [facility] Globulin Total 2.9 1.9 - 3.7 g/dL (calc) [facility] Albumin/Globulin Ratio 1.2 1.0 - 2.5 (calc) [facility] Bilirubin Total 0.3 0.2 - 1.2 mg/dL [facility] Alkaline Phosphatase 124 31 - 125 U/L [facility] AST 15 10 - 30 U/L [facility] ALT 14 6 - 29 U/L [facility] Comment: Test Performed at: [facility] [employer] ??[phone] YASMEEN DUARTE DO,MPH 11/08/2019 11:5 6 AM CDT 11/08/2019 11:58 AM CDT Danii Lanceminaja PROJECT [facility] ANALYST-[facility]CHANIC APPRENTICE LAB - CHEMISTRY ORDERABLES Performing Organization Address City/State/[facility] Co de Phone Number [facility] [address] [place] [address] * ECHOCARDIOGRAM 2D WITH DOPPLER (10/17/2019 7:45 AM CDT) 10/17/2019 7:45 AM CDT Narrative Procedure Note Danielle Malhotra DO - 10/17/2019 . [facility] Heart and Vascular [facility]? s [address] [place] [address] [place] [id number] Echocardiography Examination Transthoracic Name: GENESIS BANEGAS [facility]#: [id number] MR#: [id number] Admission Number: [id number] Study Date: 10/17/2019 Study Time: 07:45 AM Date Of : 1995 Age: 24 years Height: 62 in. (157.5 cm) Weight: 289 lbs. (131.09 kg) BSA: 2.24 m2 Gender: Female Blood Pressure: 147 mmHg / 104 mmHg Heart Rate: Rhythm: Infection: Emergency: Contrast Allergy: Procedure Plaster Mechanic: Sharri Myles RDCS Ordering Physician: HAIDER LARA Reading Physician: Danielle Malhotra, DO Indication: Twin , Tachycardia Conclusions Left Ventricle: ? ? Left ventricle is normal in size. ? ? Normal global systolic left ventricular function. ? ? EF visually estimated at 65 %. ? ? Left ventricle wall thickness is normal. ? ? There are no regional wall motion abnormalities. ? ? Left ventricular diastolic function parameters are normal. Right Ventricle: ? ? Normal size right ventricle. ? ? Right ventricular systolic function is normal. Follow up: Findings Left Ventricle: Left ventricle is normal in size. Normal global systolic left ventricular function. EF evaluated by EF (biplane method of disks). EF visually estimated at 65 %. Left ventricle wall thickness is normal. There are no regional wall motion abnormalities. Left ventricular diastolic function parameters are normal. Right Ventricle: Patient: GENESIS BANEGAS Study Date: 10/17/2019 07:45 AM Page 1 of 3 Normal size right ventricle. Right ventricular wall thickness is normal. Right ventricular systolic function is normal. Pulmonary artery pressure not obtained due to inadequate doppler jet; however no secondary evidence of significant pulmonary hypertension. Left Atrium: The left atrium is normal in size. Right Atrium: The right atrium is normal in size. Mitral Valve: Mitral leaflets exhibit normal cuspal separation. No mitral regurgitation. No mitral valve stenosis. Aortic Valve: Aortic leaflets exhibit normal cuspal separation. No aortic valve regurgitation. There is no aortic stenosis. Tricuspid Valve: Tricuspid valve leaflets are normal. No tricuspid regurgitation. No tricuspid valve stenosis. Pulmonic Valve: Pulmonic leaflets exhibit normal cuspal separation. No pulmonic valve regurgitation is evident. There is no pulmonic valve stenosis. Aorta: The aorta is normal. No dilatation of the aorta. The aortic root exhibits normal size. Great Vessels: Pulmonary Artery: The pulmonary artery morphology appears normal. IVC: The inferior vena cava is not visualized. Pericardium: The pericardium is normal in appearance. No pericardial effusion. Exam Details Procedure Ordered: ECHOCARDIOGRAM 2D W/DOPPLER Procedure Components: Complete 2D, M-mode, complete spectral Doppler, color Doppler Procedure Status: Routine study Facility Location: [facility] Clinical Data Comment: No cardiac history Measurements Anatomy Label Value Normal Value Aorta AoRoot, 2D 2.9 cm (1.4cm - 2.6cm) Aortic Valve AV Vmean 1.27 m/s Aortic Valve AV VTI 23.74 cm Aortic Valve AV PGmax 12 mmHg Aortic Valve AV PGmean 7 mmHg Aortic Valve AV Vmax, Curve 1.7 m/s (1m/s - 1.7m/s) Aortic Valve LVOT VTI / AV VTI 0.65 Aortic Valve PARISH D (continuity eq. VTI) 2.5 cm?? Aortic Valve PARISH Index (continuity 1.16 cm??/m?? eq.Vmax) Aortic Valve LVOT Vmax / AV Vmax 0.69 Interventricular septum IVSd, 2D 1.2 cm (0.6cm - 1.1cm) Left Atrium LADs, 2D 3.8 cm (2.7cm - 3.8cm) Left Atrium LA Area d, A2C 20.2 cm?? Patient: GENESIS BANEGAS Study Date: 10/17/2019 07:45 AM Page 2 of 3 Left Atrium LA Area d, A4C 15.1 cm?? Left Atrium LAEDV Index, AL2 30.4 ml/m?? Left Atrium LAEDV Index, AL4 19.2 ml/m?? Left Ventricle LVOT Vmax 1.18 m/s (0.7m/s - 1.1m/s) Left Ventricle LVOTd 2.2 cm (1.8cm - 2cm) Left Ventricle LVOT VTI 15.42 cm (18cm - 22cm) Left Ventricle LVOT PGmax 6 mmHg Left Ventricle LVEF visual 65 % (55% - 75%) Left Ventricle LVDd, 2D 4.7 cm (3.7cm - 5.2cm) Left Ventricle LVDs, 2D 3.1 cm (2.2cm - 3.5cm) Left Ventricle LVPWd, 2D 1.2 cm (0.6cm - 0.9cm) Left Ventricle FS, 2D 34.04 % Left Ventricle LVEDV, BP 109 ml (56ml - 104ml) Left Ventricle LVESV, BP 38 ml (19ml - 49ml) Left Ventricle LVOT PGmean 2 mmHg Left Ventricle LVOT Vmean 0.73 m/s Left Ventricle Diastolic MV E Vmax 0.78 m/s Function Left Ventricle Diastolic MV A Vmax 0.97 m/s Function Left Ventricle Diastolic MV E/A 0.8 Function Pulmonic Valve PV PGmax 8 mmHg Pulmonic Valve PV Vmax, Caliper 1.44 m/s (0.6m/s - 0.9m/s) (No Signature Object) Patient: GENESIS BANEGAS Study Date: 10/17/2019 07:45 AM Page 3 of 3 Haider Lara MD ECHO ORDERABLES Performing Organization Address City/[facility] Co de Phone Number [facility] [address] [place] [address] * (ABNORMAL) PROTEIN CREATININE RATIO URINE TIMED PNL (08/25/2019 8:57 AM CDT) Creatinine 24 Hour Urine 1.53 0.50 - 2.15 g/24 h [facility] Protein 24 Hour Urine 137(H) < OR = 114 mg/g creat [facility] Protein/Creatini ne Ratio 0.137(H) < OR = 0.114 mg/mg creat [facility] Protein 24 Hour Urine 210(H) <150 mg/24 h [facility] Comment: TOTAL URINE VOLUME: 3000/24 Test Performed at: [facility] [employer] ??[phone] YASMEEN DUARTE DO,MPH 08/25/2019 8:57 AM CDT 08/25/2019 9:01 AM CDT Haider Lara MD LAB - URINE CHEMI STRY ORDERABLES Performing Organization Address City/[facility]/ZIP Co de Phone Number [facility] [address] [place] [address] * ALPHA FETOPROTEIN BLOOD MATERNAL (08/25/2019 8:57 AM CDT) Interpretation [facility] Comment: Screen negative for open NTD for twins. MSAFP Risk Open NTD NOT CALCULATED [facility] MSAFP 67.2 ng/mL [facility] Adjusted Multiple of Median 2.43 [facility] Comments [facility] Comment: This patient's MARCI (estimated date of delivery) was used to calculate the gestational age. The AFP MoM value has been adjusted for a twin . The AFP MoM, when adjusted for a twin , fell within the range seen most often in unaffected pregnancies. Thus, this screen does not indicate an increased risk for open neural tube defects. A likelihood estimate of neural tube defect risk is unavailable for twins at this time. The single AFP marker is not recommended for Down syndrome and other chromosomal abnormalities screening. Much greater sensitivity is achieved with multiple markers, such as AFP, hCG, unconjugated estriol, and/or dimeric inhibin A, as recommended by the [employer]. It should be noted that normal test results can never guarantee the of a normal child. In the case of twin pregnancies, some authors advocate a high resolution ultrasound as a complement to this screen. [facility] See Below [facility] Comment: This is a screening test, not a diagnostic test. This risk assessment report is based in part on demographic data provided by the ordering physician. Please notify the laboratory promptly if any data are incorrect. For assistance with recalculations, please call your local [facility] laboratory. For assistance with interpretation of these results, please contact your Local [facility] genetic counselor or call [phone]). Interpretive Cutoffs Screen Positive for Open NTD: > or = 2.50 adjusted MOM ?> or = 1.90 adjusted MOM for ?Insulin-dependent diabetics ?> or = 4.00 adjusted MOM for ?twins ?> or = 3.50 adjusted MOM for ?Twins insulin-dependent ?diabetics ?> or = 4.50 adjusted MOM for ?triplets Gestational Age 17.6 weeks [facility] Patient Weight 282 lbs [facility] MARCI 01/29/2020 [facility] MARCI Determined By LMP [facility] Race [facility] Number of Fetuses 2 [facility] Insulin Dependent Diabetic NO [facility] Repeat Specimen NO [facility] History Neural Tube Defect NO [facility] History of Down Syndrome NO [facility] Donor Egg NO [facility] Donor Age Egg Retrieval NOT GIVEN [facility] Comment: Test Performed at: [facility] [address] [place] [address] ??[phone] YASMEEN DUARTE DO,MPH 08/25/2019 8:57 AM CDT 08/25/2019 9:01 AM CDT Haider Lara MD LAB - CHEMISTRY O RDERABLES [facility] [address] [place] [address] * (ABNORMAL) CBC W/O DIFFERENTIAL (08/25/2019 8:57 AM CDT) White Blood Cell Count 12.2(H) 3.8 - 10.8 Thousand/u L [facility] RBC 4.10 3.80 - 5.10 Million/uL [facility] Hemoglobin 12.2 11.7 - 15.5 g/dL [facility] Hematocrit 36.0 35.0 - 45.0 % [facility] MCV 87.8 80.0 - 100.0 fL [facility] MCH 29.8 27.0 - 33.0 pg [facility] MCHC 33.9 32.0 - 36.0 g/dL [facility] RDW 13.3 11.0 - 15.0 % [facility] Platelet Count 248 140 - 400 Thousand/u L [facility] MPV 11.0 7.5 - 12.5 fL [facility] Comment: Test Performed at: [facility] [address] [place], [place] ??[phone] YASMEEN DUARTE DO,MPH 08/25/2019 8:57 AM CDT 08/25/2019 9:01 AM CDT Haider Lara MD LAB - HEMATOLOGY ORDERABLES [facility] [address] [place] [address] Care Teams Dope Mixer Relationship Specialty Start Date End Date Eliud Zaman MD [facility] [place] [id number] PCP - General Family Medicine 10/17/19 Danielle Malhotra DO [address] [place] [address] [address] [place] [address] Cardiovascular Disease 11/24/19
--- OUTSIDE RECORDS SUMMARY | 2024-06-23 05:15 | XMS_ITS | Clinical Summary ---
Author Organization [facility] Address [address] [place] [address]. [place] [address] [place] [address] Care Team Providers Care Rn Infusion Name Role Phone Unavailable Primary Care Provider Unavailabl e Social History Tobacco Use Types Packs/Day Years Used Date Smoking Tobacco: Never Assessed Comments Unknown Sex and Gender Information Value Date Recorded Sex Assigned at Not on file Legal Sex Female 8:39 PM CDT Gender Identity Not on file Sexual Orientation Not on file Last Filed Vital Signs Vital Sign Reading Time Taken Comments Blood Pressure 118/89 03/31/2012 2:41 PM CDT Pulse 140 03/31/2012 2:41 PM CDT Temperature - - Respiratory Rate - - Oxygen Saturation - - Inhaled Oxygen Concentration - - Weight 101.3 kg (223 lb 6.4 oz) 03/31/2012 2:41 PM CDT Height 160 cm (5' 3 ) 03/31/2012 2:41 PM CDT Body Mass Index 39.57 03/31/2012 2:41 PM CDT Plan of Treatment Health Maintenance Due Date Last Done Comments Cervical Cancer Screening Pa p Smear (Age 21 to 29) Every 3 Years 1995 Cervical Cancer Screening 1995 Annual Physical 1998 Hepatitis C 2013 DTaP, Tdap and Td Vaccines ( 1 - Tdap) 2014 Hepatitis B Vaccines (1 of 3 - 19+ 3-dose series) 2014 COVID-19 Vaccine (2023-2 5 season) 2024 Influenza Adult (#1) 2024 HPV Vaccines Aged Out No longer eligi ble based on patient's age to complete this topic Meningococcal Vaccine Aged Out No joey karen eligible based on patient's age to complete this topic Pneumococcal Vaccine: Pediat rics (0 to 5 Years) and At-Risk Patients (6 to 64 Years) Aged Out No longer eligible b ased on patient's age to complete this topic RSV Immunizations Under 20 Months Aged Out No longer eligible based on patient's age to complete this topic
--- OUTSIDE RECORDS SUMMARY | 2024-06-23 05:15 | XMS_ITS | Clinical Summary ---
Author Organization [facility] Address [address] [place] [address] Care Team Providers Care Photoengraver Name Role Phone Eliud Zaman MD Primary Care Provider [phone] Allergies Active Allergy Reactions Criticality Noted Date [...] 0 10/02/2022 Body mass index 40.0-44.9, adult ([facility]) 10/02 Palpitations 10/02/2022 ADHD (attention deficit hyperactivity [...] Influenza, Trivalent, IM (MDV) 01/31/2014 Tdap 01/13/2020 Surgical History Surgery Date Site/Laterality Comments SECTION WISDOM TOOTH EXTRACTION Medical History Medical History Date Comments History of renal calculi History of kidney stone Heart murmur Heart murmur Depression Depression Hypertension Hypertension Anxiety disorder Anxiety History of section H/O: section Hx Other Medical morbid obesity; Comments: ELU 07/17/2016 - Hypertension Family History * Patient is adopted Medical History Relation Name Comments Obesity Brother 1 Other Brother 3 Alive and well; Obesity Brother 4 Obesity; Heart attack Father Myocardial infa rction; Cause of : Myocardial infarction Breast cancer Maternal Grandmother Breast cancer Mother Cancer, breast ; Obesity Mother Other Mother Alive and well; Diabetes Other 1 Family history of Diabetes mellitus; Hypertension Other 2 Family history of Hypertension; Relation Name Status Comments Brother 1 Alive Brother 2 Alive Brother 3 Brother 4 Father (Age 59) Maternal Grandmother Mother Alive Other 1 Other 2 Social History Tobacco Use Types Packs/Day Years Used Date Smoking Tobacco: Former Cigarettes Q uit: 2013 Smokeless Tobacco: Never Alcohol Use Standard Drinks/Week [...] on file 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 Gender Identity Not on file Sexual Orientation Not on file Obstetrics History Para Term AB IAB SAB Ectopic Multiple Livin g Live Births 1 1 1 1 1 Date Outcome GA Total Labor Labor/2nd/3rd Weight Sex Type Anes PTL Alyse A1 A5 Name Clin 014 Term 4.281 kg (9 lb 7 oz) M CS-LT ranv Y Living Complications:Failure to Pro oj in First Stage Comments G1: spontaneous preg, FT pLT CS 2/2 arrest of dilation Last Filed Vital Signs Vital Sign Reading [...] 10/02/2022 2:57 PM CDT Plan of Treatment Health Maintenance Due Date Last Done Comments Cervical Cancer Screening 1995 Depression Screening 1995 Hepatitis C Screening 1995 Varicella Vaccines (1 of 2 - 13+ 2-dose series) 01/09/2008 Hepatitis B Screening 2013 Regular Well Visit/Exam 18-64 2013 Covid-19 Vaccine (3 - 2023-2 5 season) 2024 01/16/2021, 12/20/2020 Influenza Vaccine (#1) 2024 8, 01/31/2014 DTaP/Tdap/Td Vaccine (2 - Td or Tdap) 01/12/2030 01/13/2020 HPV Vaccines Aged Out No longer eligi ble based on patient's age to complete this topic Pneumococcal vaccine <65 Aged Out No longer eligible based on patient's age to complete this topic Insurance [facility] CHO[facility] Care Teams Photoengraver Relationship Specialty Start Date End Date Eliud Zaman MD [facility] - General 08/28/16
--- OUTSIDE RECORDS SUMMARY | 2024-06-23 05:15 | XMS_ITS | Encounter Summary ---
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 Historical Provider [facility] Final Result documented in this encounter Visit Diagnoses Not on filedocumented in this encounter Care Teams Barrel Drum Cutter Relationship Specialty Start Date End Date Eliud Zaman MD PCP - General 08/28/16 documented as of this encounter
--- OUTSIDE RECORDS SUMMARY | 2024-06-23 05:15 | XMS_ITS | Encounter Summary ---
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 Historical Provider [facility] Final Result documented in this encounter Visit Diagnoses Not on filedocumented in this encounter Care Teams Sales Estimator Relationship Specialty Start Date End Date Eliud Zaman MD PCP - General 08/28/16 documented as of this encounter
== END 2024-06-22 15:12 | disposition home or self-care (01) ==
PROVIDERS: Emergency Provider Emergency Medicine; PCP Family Medicine
DX: K52.9 Noninfective gastroenteritis and colitis, unspecified (principal); E87.6 Hypokalemia; N39.0 Urinary tract infection, site not specified; E03.9 Hypothyroidism, unspecified; E78.5 Hyperlipidemia, unspecified; Z20.822 Contact with and (suspected) exposure to COVID-19
CPT/HCPCS: 36415; 74177; 80053; 81001; 81025; 83605; 83690; 85025; 87637; 96361; 96374; 96375; 99284; A9270; J1885; J2405; J7030; Q9967

== ENCOUNTER 2024-07-07 14:09 | Outpatient (CLI) | payer OTHER, SELFPAY ==
--- OUTSIDE RECORDS SUMMARY | 2024-07-07 14:13 | XMS_ITS | Patient Health Summary ---
Author Organization [facility] Address [address] [place] [address] Care Team Providers Care Programs Manager Name Role Phone Eliud Zaman MD Primary Care Provider [phone] Danielle Malhotra DO Unavailable [phone] Note from [facility],non-owned Affiliates and Associated Physician Practices is amultiple site organization consisting of ambulatory clinics and hospital sitesin [place], [place], [place] and [place]. This disclosure is being madepursuant to the Care Everywhere program and may not contain all information available regarding this patient. Last updated 18.[facility] Allergies * Amoxicillin(Urticaria) -Medium Criticality * Codeine(Nausea [...] (BAQSIMI ONE PACK) 3 MG/DOSE POWD(Started 11/29/2019) [place] 3 mg into the nose as needed [...] 106 01/09/2020 4:05 PM CDT Temperature 36.6 C (97.8 F) 01/09/2020 4:05 PM CDT Respiratory Rate 20 11/08/2019 10:3 0 AM [...] PM CDT Narrative 01/10/2020 9:20 AM CDT [facility] Maternal Medicine Maternal & Care Center PHONE: FAX: FETUS A Pat. Name: GENESIS BANEGAS. No: [id number] Study Date: 01/09/2020 2:46pm , Age: 08 1995, 25 Pregnancies: 2, Para 1 Height: 62 in Weight: 263 lb LMP: Unknown GA by Base: 37w1d MARCI: 01/29/2020 GA by US: 38w1d MARCI: 01/22/2020 GA Selected: 37w1d (From Known E) MARCI: 01/29/2020 Referring MD: Matias Li MD Seismometer Operator: Fatoumata Raymundo RDMS CPT4: 13374i1,94722g2 BMI: 48.1 Hist/Ind: Dichorionic twins GDM, on insulin Class III obesity Episodic maternal tachycardia MEASUREMENTS & AGE GROWTH EVALUATION Measurement GA Range Srce %for GA Ratios ----- ---- ------- AC 34.1 cm 38w0d (24q1f-43n3f) Hadl AC 85% FL/AC 0.22 (0.20 - 0.24) FL 7.5 cm 38w3d (15x8w-05d1o) Hadl FL 79% GA for sonogram 38w1d (65b2e-04m4z) Weight Estimate: based on (AC,FL) Avg Weight: 3430 gm (2902-3958gm) Had : 7lbs, 8oz Normal: 3058 gm (2293-3822gm) Had Wt% 83% for 37w1d Heart Rate: 161 bpm Amniotic Fluid Index: 04.7cm (Deepest Pocket) Biophysical Profile: 01/07 Breathin Tone: 2 NST: 2 Movement: 2 AFV: 2 EVAL, PLACENTA Presentation: cephalic MaternalSide: left Heart Rate: 161 bpm Gender: female Amniotic Fluid Volume: normal CLINICAL SUMMARY Study Number: 14 The FHR baseline was 130 bpm for twin A and 145 bpm for twin B during today's NST. Both twins had moderate FHR variability and reactive tracings. No decelerations were detected. IMPRESSION: 1) Dichorionic twin gestation, 37w1d 2) The [...] twins currently have reassuring biophysical profiles RECOMMEND: Close maternal movement monitoring while awaiting delivery ( scheduled 01/11, per staff report) Thank you for allowing us the opportunity to care for your patient. Isha Buitrago MD <Electronic Signature> 01/10/2020 09:20am FETUS B Pat. Name: GENESIS BANEGAS. No: [id number] Study Date: 01/09/2020 2:46pm , Age: 08 1995, 25 Pregnancies: 2, Para 1 Height: 62 in Weight: 263 lb LMP: Unknown GA by Base: 37w1d MARCI: 01/29/2020 GA by US: 38w6d MARCI: 01/17/2020 GA Selected: 37w1d (From Known E) MARCI: 01/29/2020 Referring MD: Matias Li MD Seismometer Operator: Fatoumata Raymundo RDMS CPT4: 92040r3,00657c3 Hist/Ind: Dichorionic twins GDM, on insulin Class III obesity Episodic maternal tachycardia MEASUREMENTS & AGE GROWTH EVALUATION Measurement GA Range Srce %for GA Ratios ----- ---- ------- BPD 8.8 cm 35w3d (42y5t-08v3d) Hadl BPD 19% FL/BPD 0.85 (0.71 - 0.87) HC 35.7 cm 41w6d (41i6z-50r7i) Hadl HC 98% FL/AC 0.21 (0.20 - 0.24) AC 35.8 cm 39w5d (88u8p-22a7u) Hadl AC >99 HC/AC 1.00 (0.91 - 1.10) FL 7.5 cm 38w2d (82s2j-82z6j) Hadl FL 77% CI 0.65 (0.70 - 0.86* GA for sonogram 38w6d (82s3g-18w8l) Weight Estimate: based on (BPD,HC,AC,FL) Avg Weight: 3850 gm (3280-4420gm) Had : 8lbs, 7oz Normal: 3058 gm (2293-3822gm) Had Wt% >97 for 37w1d Heart Rate: 134 bpm Amniotic Fluid Index: 03.1cm (Deepest Pocket) Biophysical Profile: 01/07 Breathin Tone: 2 NST: 2 Movement: 2 AFV: 2 EVAL, PLACENTA Presentation: breech MaternalSide: right Heart Rate: 134 bpm Gender: male Amniotic Fluid Volume: normal CLINICAL SUMMARY Isha Buitrago MD <Electronic Signature> 01/10/2020 09:20am Rambo White MD [facility] ORDERABLES * MONITOR - HOLTER (12/14/2019) Jims Martine Araiza - 12/14/[address] [facility] - Heart & Vascular - Holter Monitor Name: Genesis Banegas : 1995 Primary Care Physician:Eliud Zaman MD Referring Physician: Danielle Malhotra DO Clinical Indication: Tachycardia. A 7 day holter was placed on 11/24/19. Findings: 7 day holter demonstrates sinus rhythm with an average heart rate of 113 bpm. The minimum HR was 66 bpm at 7:22am and the maximum HR was 169 bpm at 4:27pm. There were 22 isolated atrial premature complexes and 28 isolated ventricular premature complexes. There were 2 brief episodes of SVT up to 14 beats at 182 bpm. There were no bradycardic episodes. The patient did not record any symptoms. Conclusion: 1. 7 day Holter demonstrates sinus rhythm and sinus tachycardia, average heart rate of 113 bpm. 2. There were rare isolated APCs and PVCs and 2 brief episodes of SVT up to 14 beats. 3. The patient did not record any symptoms. Thank you. Please do not hesitate to call if there are any questions. Darrius Martinez MD [facility] - Heart & Vascular Care Office Danielle Malhotra DO CARDIAC SERVICES OR DERABLES * SONOGRAM - COMPLETE (12/13/2019 2:33 PM CDT) Only the most recent of5 resultswithin the time period is included. Anatomical Region Laterality Modality Other 12/13/2019 2:33 PM CDT Narrative 12/13/2019 4:21 PM CDT [facility] Maternal Medicine Maternal & Care Center PHONE: FAX: FETUS A Pat. Name: GENESIS BANEGAS. No: [id number] Study Date: 12/13/2019 2:33pm , Age: 08 1995, 24 Height: 62 in Weight: 236 lb LMP: Unknown GA by Base: 33w2d MARCI: 01/29/2020 GA Selected: 33w2d (From [facility]) MARCI: 01/29/2020 Referring MD: Matias Li MD Seismometer Operator: Zhane Garcia, [facility], RDCS CPT4: [id number] BMI: 43.16 Hist/Ind: Dichorionic twins Intermittent maternal tachycardia Class III obesity GDM Heart Rate: 158 bpm Amniotic Fluid Index: 04.7cm (Deepest Pocket) Biophysical Profile: 01/05 Breathin Tone: 2 Movement: 2 AFV: 2 EVAL, PLACENTA Presentation: cephalic MaternalSide: left:cervix Heart Rate: 158 bpm Amniotic Fluid Volume: normal CLINICAL SUMMARY Study Number: 7 A dichorionic twin intrauterine is seen. The DVP appears normal for twin A, and normal for twin B. NST reviewed: Twin A: not able to to be monitored continuously due to position and maternal habitus; no decelerations noted on limited monitoring Twin B: baseline 145 bpm, moderate variability, appropriate accels, no significant decels; reactive NST IMPRESSION: Diamniotic Dichorionic Twins, live, intrauterine at 33w2d Amniotic fluid volume: Normal for twin A, and normal for twin B Biophysical profile: Reassuring for twin A, and reassuring for twin B RECOMMEND: Increase to twice weekly testing at 34 weeks Repeat growth in 1 week Please be advised that these recommendations are being made in the best interest of our patients during the COVID 19 Pandemic. Thank you for allowing us the opportunity to care for your patient. Damion Adames MD <Electronic Signature> 12/13/2019 04:09pm FETUS B Pat. Name: GENESIS BANEGAS Pat. No: [id number] Study Date: 12/13/2019 2:33pm , Age: 08 1995, 24 Height: 62 in Weight: 236 lb LMP: Unknown GA by Base: 33w2d MARCI: 01/29/2020 GA Selected: 33w2d (From [facility]) MARCI: 01/29/2020 Referring MD: Matias Li MD Seismometer Operator: Zhane Garcia, RDMS, RDCS CPT4: [id number] Hist/Ind: Dichorionic twins Intermittent maternal tachycardia Class III obesity GDM Heart Rate: 145 bpm Amniotic Fluid Index: 05.9cm (Deepest Pocket) Biophysical Profile: 03/09 Breathin Tone: 2 NST: 2 Movement: 2 AFV: 2 EVAL, PLACENTA Presentation: variable MaternalSide: fundal:right Heart Rate: 145 bpm Amniotic Fluid Volume: normal CLINICAL SUMMARY Damion Adames MD <Electronic Signature> 12/13/2019 04:09pm Myah Luther MD [facility] ORDERABLES * BIOPHYSICAL PROFILE WO NST (11/29/2019 11:58 AM CDT) Anatomical Region Laterality Modality Other 11/29/2019 11:5 8 AM CDT Narrative 11/29/2019 1:14 PM CDT [facility] Maternal Medicine Maternal [facility] Care Center PHONE: FAX: FETUS A Pat. Name: GENESIS BANEGAS Pat. No: [id number] Study Date: 11/29/2019 11:58am , Age: 08 1995, 24 Height: 62 in Weight: 263 lb LMP: Unknown GA by Base: 31w2d MARCI: 01/29/2020 GA Selected: 31w2d (From [facility]) MARCI: 01/29/2020 Referring MD: Matias Li MD Seismometer Operator: Zhane Garcia, RDMS, RDCS CPT4: [id number],36993w2 BMI: 48.1 Hist/Ind: Decreased movement DC/DA twins Maternal tachycardic episodes GDM Heart Rate: 163 bpm Amniotic Fluid Index: 07.3cm (Deepest Pocket) Biophysical Profile: 11/07 Breathin Tone: 2 NST: 0 Movement: 2 AFV: 2 EVAL, PLACENTA Presentation: cephalic MaternalSide: left Placenta: posterior Heart Rate: 163 bpm Amniotic Fluid Volume: normal CLINICAL SUMMARY Study Number: 5 A limited exam was performed, due to the complaint of decreased movement, in addition to testing. The NST was uninterpretable for both twins and was significantly limited by maternal discomfort and inability to be in a recumbent position for the exam. IMPRESSION: Diamniotic Dichorionic Twins, live, intrauterine at 31w2d Amniotic fluid volume: Normal for twin A, and normal for twin B Biophysical profile: equivocal for twin A, and reassuring for twin B Today's findings were communicated to Gneesis and the referring obstetric group in realtime. RECOMMEND: I recommend repeat biophysical profile within 24 hr which can be performed at the office of the referring machine marker If the repeat assessment is still equivocal or is nonreassuring for twin A or B then maternal and reassessment should be performed in an obstetric triage, such as [facility] Twice weekly NST and weekly BPP starting at 32 weeks Serial growth every 4 weeks Please be advised that these recommendations are being made in the best interest of our patients during the COVID 19 Pandemic. Thank you for allowing us the opportunity to care for your patient. Haider Lara MD <Electronic Signature> 11/29/2019 01:13pm FETUS B Pat. Name: GENESIS BANEGAS Madina. No: [id number] Study Date: 11/29/2019 11:58am , Age: 08 1995, 24 Height: 62 in Weight: 263 lb LMP: Unknown GA by Base: 31w2d MARCI: 01/29/2020 GA Selected: 31w2d (From [facility]) MARCI: 01/29/2020 Referring MD: Matias Li MD Seismometer Operator: Zhane Garcia, RDMS, RDCS CPT4: [id number] Hist/Ind: Decreased movement DC/DA twins Maternal tachycardic episodes GDM Heart Rate: 134 bpm Amniotic Fluid Index: 06.1cm (Deepest Pocket) Biophysical Profile: 01/07 Breathin Tone: 2 NST: 0 Movement: 2 AFV: 2 EVAL, PLACENTA Presentation: cephalic MaternalSide: right Placenta: anterior Heart Rate: 134 bpm Amniotic Fluid Volume: normal CLINICAL SUMMARY Haider Lara MD <Electronic Signature> 11/29/2019 01:13pm Haider Lara MD [facility] ORDERABLES * EKG 12-LEAD (11/24/2019) Impressions [...] perform a manual review. Test Performed at: [facility] [address] [place] [address] YASMEEN DUARTE DO,MPH 11/08/2019 11:5 6 AM CDT 11/08/2019 11:58 AM CDT Danii Ramos APRN-COMPOSITION PROFESSOR LAB - HEMATOLOG Y ORDERABLES Performing Organization Address [facility] Co de Phone Number [facility] [address] [place] [phone] * (ABNORMAL) CBC W AUTO DIFFERENTIAL (11/08/2019 11:56 AM CDT) White Blood Cell Count 13.2(H) 3.8 - [...] 12.5 fL [facility] Comment: Test Performed at: [facility] [address] [facility] [address] YASMEEN DUARTE DO,MPH 11/08/2019 11:5 6 AM CDT 11/08/2019 11:58 AM CDT Danii Ramos APRN-COMPOSITION PROFESSOR LAB - HEMATOLOG Y ORDERABLES Performing Organization Address [facility] Co de Phone Number [facility] [address] [place] [address] * (ABNORMAL) COMPREHENSIVE METABOLIC PANEL (11/08/2019 11:56 AM CDT) Only the most recent of2 resultswithin the time period is included. Glucose 104(H) 65 - 99 mg/dL [facility] Comment: Fasting reference interval For someone without known [...] 29 U/L [facility] Comment: Test Performed at: [employer] [facility] [address] [place] [address] YASMEEN DUARTE DO,MPH 11/08/2019 11:5 6 AM CDT 11/08/2019 11:58 AM CDT Danii Ramos APRN-COMPOSITION PROFESSOR LAB - CHEMISTRY ORDERABLES [facility] [address] [place] [address] * ECHOCARDIOGRAM 2D WITH DOPPLER (10/17/2019 7:45 AM CDT) 10/17/2019 7:45 AM CDT Narrative Procedure Note Danielle Malhotra DO - 10/17/[address] [facility] [address] [place] [address] Echocardiography Examination Transthoracic Name: GENESIS BANEGAS MPI#: [id number] MR#: [id number] Admission Number: [id number] Study Date: 10/17/2019 Study Time: 07:45 AM Date Of : 1995 Age: 24 years Height: 62 in. (157.5 cm) Weight: 289 lbs. (131.09 kg) BSA: 2.24 m2 Gender: Female Blood Pressure: 147 mmHg / 104 mmHg Heart Rate: Rhythm: Infection: Emergency: Contrast Allergy: Procedure Police Matron: Sharri Myles RDCS Ordering Physician: HAIDER LARA Reading Physician: Danielle Malhotra DO Indication: Twin , Tachycardia Conclusions Left Ventricle: Left ventricle is normal in size. Normal global systolic left ventricular function. EF visually estimated at 65 %. Left ventricle wall thickness is normal. There are no regional wall motion abnormalities. Left ventricular diastolic function parameters are normal. Right Ventricle: Normal size right ventricle. Right ventricular systolic function is normal. Follow [...] Routine study Facility Location: [facility] [place] Clinical Data Comment: No cardiac history Measurements [...] Valve PARISH D (continuity eq. VTI) 2.5 cm Aortic Valve PARISH Index (continuity 1.16 cm /m eq.Vmax) Aortic Valve LVOT Vmax / AV Vmax 0.69 Interventricular septum IVSd, 2D 1.2 cm (0.6cm - 1.1cm) Left Atrium LADs, 2D 3.8 cm (2.7cm - 3.8cm) Left Atrium LA Area d, A2C 20.2 cm Patient: GENESIS BANEGAS Study Date: 10/17/2019 07:45 AM Page 2 of 3 Left Atrium LA Area d, A4C 15.1 cm Left Atrium LAEDV Index, AL2 30.4 ml/m Left Atrium LAEDV Index, AL4 19.2 ml/m Left Ventricle LVOT Vmax 1.18 m/s (0.7m/s [...] Lara MD ECHO ORDERABLES Performing Organization Address City/State/[facility] Co de Phone Number [facility] [address] [place] [address] * (ABNORMAL) PROTEIN CREATININE RATIO URINE TIMED PNL (08/25/2019 8:57 AM CDT) Creatinine 24 Hour Urine 1.53 0.50 - 2.15 g/24 h [facility] Protein 24 Hour Urine 137(H) < OR = 114 mg/g creat [facility] Protein/Creatini ne Ratio 0.137(H) < OR = 0.114 mg/mg creat [facility] Protein 24 Hour Urine 210(H) <150 mg/24 h [facility] Comment: TOTAL URINE VOLUME: 3000/24 Test Performed at: [employer] [facility] [id number] [place] [address] [place] [address] YASMEEN DUARTE DO,MPH 08/25/2019 8:57 AM CDT 08/25/2019 9:01 AM CDT Haider Lara MD LAB - URINE CHEMI STRY ORDERABLES [facility] [address] [place] [address] * ALPHA FETOPROTEIN BLOOD MATERNAL (08/25/2019 8:57 [...] dimeric inhibin A, as recommended by the [employer]. It should [...] assistance with recalculations, please call your local [facility] laboratory. For assistance with interpretation of these results, please contact your Local [facility] genetic counselor or call [phone]). Interpretive Cutoffs Screen Positive for Open NTD: > or = 2.50 adjusted MOM > or = 1.90 adjusted MOM for Insulin-dependent diabetics > or = 4.00 adjusted MOM for twins > or = 3.50 adjusted MOM for Twins insulin-dependent diabetics > or = 4.50 adjusted MOM for triplets Gestational Age 17.6 weeks [facility] Patient Weight 282 lbs [facility] MARCI 01/29/2020 [facility]CI Determined By LMP [facility] Race [facility] Number of Fetuses 2 [facility] Insulin Dependent Diabetic NO [facility] Repeat Specimen NO [facility] History Neural Tube Defect NO [facility] History of Down Syndrome NO [facility] Donor Egg NO [facility] Donor Age Egg Retrieval NOT GIVEN [facility] Comment: Test Performed at: [facility] [id number] [place] [address] YASMEEN DUARTE DO,MPH 08/25/2019 8:57 AM CDT 08/25/2019 9:01 AM CDT Haider Lara MD LAB - CHEMISTRY O RDERABLES Performing Organization Address [facility] Co de Phone Number [facility] [address] [place] [address] * (ABNORMAL) CBC W/O DIFFERENTIAL (08/25/2019 8:57 [...] 12.5 fL [facility] Comment: Test Performed at: [facility] [address] [place] [address] YASMEEN DUARTE DO,MPH 08/25/2019 8:57 AM CDT 08/25/2019 9:01 AM CDT Haider Lara MD LAB - HEMATOLOGY ORDERABLES Performing Organization Address [facility] Co de Phone Number [facility] [address] [place] [address] Care Teams Programs Manager Relationship Specialty Start Date End Date Eliud Zaman MD [address] [place] [address] PCP - General Family Medicine 10/17/19 Danielle Malhotra DO [address] [place] [address] Cardiovascular Disease 11/24/19
--- OUTSIDE RECORDS SUMMARY | 2024-07-07 14:13 | XMS_ITS | Clinical Summary ---
Author Organization [facility] Address [address] [place] [address] Care Team Providers Care Sister Superior Name Role Phone Eliud Zaman MD Primary Care Provider [phone] Danielle Malhotra DO Unavailable [phone] Source Comments [facility],non-owned Affiliates and Associated Physician Practices is amultiple site organization consisting of ambulatory clinics and hospital sitesin [place], [place], [place] and [place]. This disclosure is being madepursuant to the Care Everywhere program and may not contain all information available regarding this patient. Last updated 18.[facility] Allergies Active Allergy Reactions Criticality Noted Date [...] Glucagon (BAQSIMI ONE PACK) 3 MG/DOSE POWD [place] 3 mg into the nose as needed [...] within 1 month--to be ordered by referring senior vice president and chief information officer Maternal morbid obesity, antepartum 08/23/2019 Assessment & Plan (09/20/2019 12:17 PM CDT): Total weight gain of 24 lb to date. Has a visit to go over dietary recommendations at [facility] in the next few weeks. Maternal Medicine [...] 1. To review blood pressure log with senior vice president and chief information officer 2. Report blood pressure values greater than [...] 1. To review blood pressure log with senior vice president and chief information officer 2. Strongly encouraged to report blood pressure [...] never received and is still listed as i n transit by the device company. Maternal Medicine recommendations: [...] Medicine recommendations: 1. Patient instructed to notify Therapeutic Recreation Specialist of her use of Seroquel as the newborns are at increased risk of withdrawal and should have increased supervision in the first few days of life Assessment & Plan (08/23/2019 11:49 AM CDT): Seroquel: [place] FDA safety category C. Late third trimester exposure is associated with withdrawal symptoms. Maternal Medicine recommendations: 1. Patient instructed to notify Therapeutic Recreation Specialist of her use of Seroquel as the [...] - 19+ 3-dose series) 2014 COVID-19 VACCINE (1 - 2023-2 5 season) 2024 INFLUENZA VACCINE [...] age to complete this topic Care Teams Sister Superior Relationship Specialty Start Date End Date Eliud Zaman MD [address] [place] [address] PCP - General Family Medicine 10/17/19 Danielle Malhotra DO [address] [place] [address] Cardiovascular Disease 11/24/19
--- OUTSIDE RECORDS SUMMARY | 2024-07-07 14:13 | XMS_ITS | Encounter Summary ---
Author Organization [facility] Address [address] [place] [address] Care Team Providers Care Telegraph And Teletype Operator Name Role Phone Eliud Zaman MD Primary Care Provider [phone] Encounter Details Date Type Department Care Team (Late st Contact Info) Description 07/17/2016 Orders Only [facility] ProviderYared MD [address] [place] [address] Social History Tobacco Use Types Packs/Day Years Used Date Smoking Tobacco: Never Alcohol Use Standard Drinks/Week Comments No 0 (1 standard drink = 0.6 oz pur e alcohol) Comments Unknown Sex and Gender Information Value Date Recorded Sex Assigned at Not on file 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
--- OUTSIDE RECORDS SUMMARY | 2024-07-07 14:13 | XMS_ITS | Clinical Summary ---
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
--- OUTSIDE RECORDS SUMMARY | 2024-07-07 14:13 | XMS_ITS | Clinical Summary ---
Author Organization [facility] Care Team Providers Care Wire Mill Operator Name Role Phone Unavailable Primary Care Provider Unavailabl e Social History Tobacco Use Types Packs/Day Years Used Date Smoking Tobacco: Never Assessed Comments Unknown Sex and Gender Information Value Date Recorded Sex Assigned at Not on file Legal Sex Female 11:34 AM EDUCATION REP Gender Identity Not on file Sexual Orientation [...]
--- OUTSIDE RECORDS SUMMARY | 2024-07-07 14:13 | XMS_ITS | Referral Summary ---
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
--- OUTSIDE RECORDS SUMMARY | 2024-07-07 14:13 | XMS_ITS | Encounter Summary ---
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
--- OUTSIDE RECORDS SUMMARY | 2024-07-07 14:13 | XMS_ITS | Clinical Summary ---
Author Organization [facility] Address [facility] [place] [address] Care Team Providers Care Framing Consultant Name Role Phone Unavailable Primary Care Provider [...] patient's age to complete this topic Meningococcal B Vaccine Aged Out No l onger eligible based on patient's age to complete [...]
--- OUTSIDE RECORDS SUMMARY | 2024-07-07 14:13 | XMS_ITS | Encounter Summary ---
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
--- OUTSIDE RECORDS SUMMARY | 2024-07-07 14:13 | XMS_ITS | Encounter Summary ---
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
--- OUTSIDE RECORDS SUMMARY | 2024-07-07 14:13 | XMS_ITS | Referral Summary ---
Author Organization [facility] Address [address] [place] [address] Care Team Providers Care President & Ceo Name Role Phone Eliud Zaman MD Primary Care Provider +1- [phone] Danielle Malhotra DO Unavailable [phone] Source Comments [facility],non-owned Affiliates and Associated Physician Practices is amultiple site organization consisting of ambulatory clinics and hospital sitesin [place], [place], [place] and [place]. This disclosure is being madepursuant to the Care Everywhere program and may not contain all information available regarding this patient. Last updated 18.[facility] Allergies Active Allergy Reactions Criticality Noted Date [...] Glucagon (BAQSIMI ONE PACK) 3 MG/DOSE POWD [place] 3 mg into the nose as needed [...] within 1 month--to be ordered by referring geotechnician Maternal morbid obesity, antepartum 08/23/2019 Assessment & Plan (09/20/2019 12:17 PM CDT): Total weight gain of 24 lb to date. Has a visit to go over dietary recommendations at [facility] in the next few weeks. Maternal [...] 1. To review blood pressure log with geotechnician 2. Report blood pressure values greater than [...] 1. To review blood pressure log with geotechnician 2. Strongly encouraged to report blood pressure [...] Medicine recommendations: 1. Patient instructed to notify Stereo Equipment Repairer of her use of Seroquel as the newborns are at increased risk of withdrawal and should have increased supervision in the first few days of life Assessment & Plan (08/23/2019 11:49 AM CDT): Seroquel: [place] FDA safety category C. Late third trimester exposure is associated with withdrawal symptoms. Maternal Medicine recommendations: 1. Patient instructed to notify Stereo Equipment Repairer of her use of Seroquel as the [...] of Treatment Not on file Care Teams President & Ceo Relationship Specialty Start Date End Date Eliud Zaman MD [address] [place] [id number] PCP - General Family Medicine 10/17/19 Danielle Malhotra DO [address] [place] [address] Cardiovascular Disease 11/24/19
[2024-07-07 19:10] LABS: Influenza A QL RT-PCR Negative (Negative); Influenza B QL RT-PCR Negative (Negative); SARS-CoV-2 RNA PCR Negative (Negative)
== END 2024-07-07 14:10 | disposition home or self-care (01) ==
LOC: ANHGOSHLAB 14:11
PROVIDERS: PCP Family Medicine; Visit Provider Student in an Organized Health Care Education/Training Program
DX: R05.9 Cough, unspecified (principal)
CPT/HCPCS: 87636

== ENCOUNTER 2024-08-29 15:03 | Outpatient (CLI) | payer OTHER, SELFPAY ==
--- OUTSIDE RECORDS SUMMARY | 2024-08-29 16:35 | XMS_ITS | Clinical Summary ---
Author Organization [facility] Address [facility] [place] [address] Care Team Providers Care Shipping Helper Name Role Phone Unavailable Primary Care Provider [...] 2014 COVID-19 Vaccine (2023-2 5 season) 2024 HPV Vaccines Aged Out No longer [...]
--- OUTSIDE RECORDS SUMMARY | 2024-08-29 16:35 | XMS_ITS | Encounter Summary ---
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
--- OUTSIDE RECORDS SUMMARY | 2024-08-29 16:35 | XMS_ITS | Encounter Summary ---
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
--- OUTSIDE RECORDS SUMMARY | 2024-08-29 16:35 | XMS_ITS | Encounter Summary ---
Author Organization [facility] Address [address] [facility] [address] [place] [address] Care Team Providers Care Bioassayist Name Role Phone Eliud Zaman MD Primary Care Provider [phone] [phone] Encounter Details Date Type Department Care Team (Late st Contact Info) Description 07/17/2016 Orders Only [facility] ProviderYared MD [address] [place] [address] Social History Tobacco Use Types Packs/Day Years Used Date Smoking Tobacco: Never Alcohol Use Standard Drinks/Week Comments No 0 (1 standard drink = 0.6 oz pur e alcohol) Comments Unknown Sex and Gender Information Value Date Recorded Sex Assigned at Not on file 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
--- OUTSIDE RECORDS SUMMARY | 2024-08-29 16:35 | XMS_ITS | Clinical Summary ---
Author Organization [facility] Address [address] [place] [address] Care Team Providers Care Grinding Room Supervisor Name Role Phone Eliud Zaman MD Primary Care Provider [phone] [phone] Allergies Active Allergy Reactions Criticality Noted Date [...] 0 10/02/2022 Body mass index 40.0-44.9, adult ([facility]) 10/02 Palpitations 10/02/2022 ADHD (attention deficit hyperactivity disorder) 08/16/2018 Secondary amenorrhea 08/16/2018 Tachycardia 07/17/2016 Overview (09/04/2016): Tachycardia Prehypertension 07/17/2016 Overview (09/04/2016): Pre-hypertension Body mass index 40+ - severely obese 07/17/2016 Overview (09/04/2016): Morbid obesity with BMI of 45.0-49.9, adult At risk for breast cancer 08/30/2015 Immunizations Immunization Administration Dates Next Due Influenza, Quadrivalent, Spl [...] on file 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
--- OUTSIDE RECORDS SUMMARY | 2024-08-29 16:35 | XMS_ITS | Clinical Summary ---
Author Organization [facility] Address [address] [place] [address] Care Team Providers Care Ophthalmic Photographer Name Role Phone Eliud Zaman MD Primary Care Provider [phone]- [phone] Danielle Malhotra DO Unavailable [phone] Source Comments [facility],non-owned Affiliates and Associated Physician Practices is amultiple site organization consisting of ambulatory clinics and hospital sitesin [place], [place], [place] and [place]. This disclosure is being madepursuant to the Care Everywhere program and may not contain all information available regarding this patient. Last updated 18.[facility] Allergies Active Allergy Reactions Criticality Noted Date [...] Glucagon (BAQSIMI ONE PACK) 3 MG/DOSE POWD [place] 3 mg into the nose as needed [...] within 1 month--to be ordered by referring claims examiner Maternal morbid obesity, antepartum 08/23/2019 Assessment & Plan (09/20/2019 12:17 PM CDT): Total weight gain of 24 lb to date. Has a visit to go over dietary recommendations at [facility] in the next few weeks. Maternal [...] 1. To review blood pressure log with claims examiner 2. Report blood pressure values greater than [...] 1. To review blood pressure log with claims examiner 2. Strongly encouraged to report blood pressure [...] Medicine recommendations: 1. Patient instructed to notify Nurse Case Manager of her use of Seroquel as the newborns are at increased risk of withdrawal and should have increased supervision in the first few days of life Assessment & Plan (08/23/2019 11:49 AM CDT): Seroquel: [place] FDA safety category C. Late third trimester exposure is associated with withdrawal symptoms. Maternal Medicine recommendations: 1. Patient instructed to notify Nurse Case Manager of her use of Seroquel as the [...] to complete this topic MENINGOCOCCAL (Group B) VACC INE SHARED DECISION-MAKING Aged Out No longer eligibl e based on patient's age to complete this topic MENINGOCOCCAL GROUPS A/C/Y/W VACCINE Aged Out No longer eligible b ased on patient's age to complete this topic PNEUMOCOCCAL VACCINE Aged Out No long er eligible based on patient's age to complete this topic Care Teams Ophthalmic Photographer Relationship Specialty Start Date End Date Eliud Zaman MD [address] [place] [address] PCP - General Family Medicine 10/17/19 Danielle Malhotra DO [address] [facility] [place] [address] Cardiovascular Disease 11/24/19
--- OUTSIDE RECORDS SUMMARY | 2024-08-29 16:35 | XMS_ITS | Referral Summary ---
Author Organization [facility] Address [address] [place] [address] Care Team Providers Care Charge Auditor Name Role Phone Eliud Zaman MD Primary Care Provider [phone] [phone] Allergies Active Allergy Reactions Criticality Noted Date [...] 0 10/02/2022 Body mass index 40.0-44.9, adult ([facility]) 10/02 Palpitations 10/02/2022 ADHD (attention deficit hyperactivity [...] on file Legal Sex Female 6:47 AM OCC THER Gender Identity Not on file Sexual Orientation [...] Plan of Treatment Not on file Insurance [facility] Care Teams Charge Auditor Relationship Specialty Start Date End Date Eliud Zaman MD PCP - General 08/28/16
--- OUTSIDE RECORDS SUMMARY | 2024-08-29 16:35 | XMS_ITS | Encounter Summary ---
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
--- OUTSIDE RECORDS SUMMARY | 2024-08-29 16:35 | XMS_ITS | Clinical Summary ---
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 INSTALLER Gender Identity Not on file Sexual Orientation Not on file Plan of Treatment Health Maintenance Due Date Last Done Comments Hepatitis C Virus (HCV) Screening 1995 Hepatitis B Immunization (1 of 3 - 19+ 3-dose series) 2014 Pap Smear 01/09/2016 Influenza Immunization (#1) 2024 11/0 01/2018, 01/31/2014 SARS-COV-2 Immunization ( season) 2024 Respiratory Syncytial Virus (RSV) Immunization (Adult) (1 - 1-dose 75+ series) 2070 DTaP/Tdap/Td Immunization Discontinued 01/13/2020 TdaP Immunization Completed 01/13/2020 Meningococcal Immunization (ACWY) Aged Out No longer eligible based on patient's age to complete this topic Pneumococcal Immunization Combined Aged Out No longer eligible based on patient's age to complete this topic Rotavirus Immunization Aged Out No lo nger eligible based on patient's age to complete this topic
[2024-08-29 19:53] LABS: Basophils Percent Auto 0.3 % (0.2-1.2); Eosinophils Absolute Auto 0.1 K/mm3 (0-0.3); Hematocrit 37.7 % (37.0-47.0); Immature Granulocyte Absolute 0.04 K/mm3 (0.00-0.031); Immature Granulocyte Percent A 0.5 % (0-0.5); Lymphocytes Absolute Auto 3.53 K/mm3 (0.9-3.2); Lymphocytes Percent Auto 44.6 % (18.3-44.2); Mean Corpuscular HGB Conc 34.5 g/dl (32-36); Mean Corpuscular Hemoglobin 30.2 pg (26-34); Mean Corpuscular Volume 87.5 fl (80-100); Mean Platelet Volume 10.6 fl (7.4-10.4); Monocytes Absolute Auto 0.4 K/mm3 (0.1-0.6); Monocytes Percent Auto 5.2 % (2.6-8.5); Neutrophils Absolute Auto 3.8 K/mm3 (1.3-6.7); Neutrophils Percent Auto 48.4 % (45.5-73.1); Platelet Count Result 293 k/mm3 (150-375); Red Blood Count 4.31 M/mm3 (4.2-5.4); Red Cell Distribution Width 13.2 % (11.5-14.5); White Blood Count 7.9 K/mm3 (4.5-10.0)
[2024-08-29 20:05] LABS: Alanine Aminotransferase 23 U/L (6-35); Albumin Level 4.3 g/dL (3.5-5.1); Alkaline Phosphatase 76 U/L (38-126); Anion Gap 10 mmol/L (4-12); Aspartate Amino Transferase 43 U/L (14-36); Bilirubin,Total 0.6 mg/dL (0.2-1.3); Blood Urea Nitrogen 12 mg/dL (7-17); Calcium 9.2 mg/dL (8.4-10.2); Carbon Dioxide 23 mmol/L (22-30); Chloride 103 mmol/L (98-107); Cholesterol 195 mg/dL (0-200); Estimated Glomerular Filt Rate > 60; Glucose 86 mg/dL (65-110); HDL Direct 58 mg/dL; Potassium 3.7 mmol/L (3.4-5.0); Sodium 136 mmol/L (137-145); Triglycerides 81 mg/dL (<150)
[2024-08-29 20:22] LABS: LDL Cholesterol Direct 100 mg/dL
[2024-08-29 20:38] LABS: Thyroid Stimulating Hormone Reflex 0.194 uIU/mL (0.465-4.68)
[2024-08-30 04:19] LABS: Total Triiodothyronine (T3) 1.58 NG/ML (0.97-1.69)
== END 2024-08-29 15:04 | disposition home or self-care (01) ==
LOC: ANHGOSHLAB 15:04
PROVIDERS: PCP Family Medicine; Visit Provider Nurse Practitioner Family
DX: R61 Generalized hyperhidrosis (principal); I10 Essential (primary) hypertension; E66.01 Morbid (severe) obesity due to excess calories; Z68.42 Body mass index [BMI] 45.0-49.9, adult
CPT/HCPCS: 36415; 80053; 80061; 84439; 84443; 84480; 85025

== ENCOUNTER 2024-11-07 10:53 | Outpatient (CLI) | payer OTHER, SELFPAY ==
--- OUTSIDE RECORDS SUMMARY | 2024-11-07 12:11 | XMS_ITS | Encounter Summary ---
Author Organization [facility] Address [address] [facility] [address] [place] [address] Care Team Providers Care [employer] Member Name Role Phone Eliud Zaman MD Primary Care Provider [phone] [phone] Encounter Details Date Type Department Care Team (Late st Contact Info) Description 10/13/2015 Orders Only [facility] ProviderYared MD [address] [place] [address] Social History Tobacco Use Types Packs/Day Years Used Date Smoking Tobacco: Never Assessed Comments Unknown Sex and Gender Information Value Date Recorded Sex Assigned at Not on file 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
--- OUTSIDE RECORDS SUMMARY | 2024-11-07 12:11 | XMS_ITS | Encounter Summary ---
Author Organization [facility] Address [address] [facility] [address] [place] [address] Care Team Providers Care Interior Design Consultant Name Role Phone Eliud Zaman MD Primary Care Provider +1 [phone] Encounter Details Date Type Department Care Team (Late st Contact Info) Description 10/07/2011 Orders Only [facility] ProviderYared MD [address] [place] [address] Social History Tobacco Use Types Packs/Day Years Used Date Smoking Tobacco: Never Assessed Comments Unknown Sex and Gender Information Value Date Recorded Sex Assigned at Not on file 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
--- OUTSIDE RECORDS SUMMARY | 2024-11-07 12:11 | XMS_ITS | Encounter Summary ---
Author Organization [facility] Address [address] [facility] [address] [place] [address] Care Team Providers Care Changeover Operator Name Role Phone Eliud Zaman MD Primary Care Provider +1 -[phone] Encounter Details Date Type Department Care Team (Late st Contact Info) Description 10/05/2011 Orders Only [facility] ProviderYared MD [address] [place] [address] Social History Tobacco Use Types Packs/Day Years Used Date Smoking Tobacco: Never Assessed Comments Unknown Sex and Gender Information Value Date Recorded Sex Assigned at Not on file 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
--- OUTSIDE RECORDS SUMMARY | 2024-11-07 12:11 | XMS_ITS | Clinical Summary ---
Author Organization [facility] Care Team Providers Care Floor Coverer Name Role Phone Unavailable Primary Care Provider Unavailabl e Social History Tobacco Use Types Packs/Day Years Used Date Smoking Tobacco: Never Assessed Comments Unknown Sex and Gender Information Value Date Recorded Sex Assigned at Not on file Legal Sex Female 11:34 AM RETAIL BEAUTY SPECIALIST Gender Identity Not on file Sexual Orientation [...]
--- OUTSIDE RECORDS SUMMARY | 2024-11-07 12:11 | XMS_ITS | Clinical Summary ---
Author Organization [facility] Address [address] [place] [address] Care Team Providers Care Appeals Coordinator Name Role Phone Eliud Zaman MD Primary Care Provider [phone] Danielle Malhotra DO Unavailable [phone] Source Comments [facility],non-owned Affiliates and Associated Physician Practices is amultiple site organization consisting of ambulatory clinics and hospital sitesin [place], [place], [place] and [place]. This disclosure is being madepursuant to the Care Everywhere program and may not contain all information available regarding this patient. Last updated 18.[facility] Allergies Active Allergy Reactions Criticality Noted Date Comments Amoxicillin Urticaria Medium 08/23/2019 Codeine Nausea and/or Vomiting 10/25/2019 Penicillins Urticaria Medium 08/23/2019 Medications * This document contains information received from the source organization and may not represent a complete record from that organization. * Be aware that medications may not be up to date on this document. Alwaysverify current medications with the patient. Vit-Fe Fumarate-FA ( VITAMIN) 28-0.8 MG tablet Take 1 tablet by mouth once daily Active QUEtiapine Fumarate (SEROQUEL PO) Take 50 mg by mouth at bedtime Active aspirin (ASPIRIN) 81 MG chew tabletIndicati ons:preeclamps ia Take 2 tablets by mouth once daily Reasons: preeclampsia 100 tablet 0 Active doxylamine (UNISOM SLEEPTABS) 25 MG tabletIndicati ons:Insomnia Take 25 mg by mouth nightly as needed for Insomnia Reasons: Trouble Sleeping Active riboflavin 100 MG tabletIndicati ons:Frequent Headaches Take 4 tablets by mouth once daily Reasons: Frequent Headaches 120 tablet 11 0 Active Additional Information Patient not taking.Reported on 11/24/2019 insulin glargine (LANTUS SOLOSTAR) pen Inject 16-30 Units subcutaneously at bedtime Start with 16 units. Increase as directed. 3 Pen 2 0 Active Additional Information Patient not taking.Reported on 12/13/2019 Insulin Pen Needle 32G X 4 MM MISC Use 1 Each once daily 100 Each 2 0 Active Glucagon (BAQSIMI ONE PACK) 3 MG/DOSE POWD Hertel 3 mg into the nose as needed 1 Each 1 0 Active Additional Information Patient not taking.Reported on 12/13/2019 labetalol (NORMODYNE; TRANDATE) 100 MG tabletIndicati ons:Hypertensi on Take 2 tablets by mouth every 12 hours Reasons: High Blood Pressure Disorder 120 tablet 3 0 Active metFORMIN ER 24hr (GLUCOPHAGE XR) 500 MG tablet Take 2 tablets by mouth 2 times daily 120 tablet 0 Active ONETOUCH DELICA LANCETS 33G MISC Use 1 Each 4 times daily 100 Each 2 0 Active blood glucose (ONETOUCH VERIO) test strip Use 1 strip 4 times daily 100 strip 2 0 Active calcium carbonate (TUMS) 500 MG chew tablet Take 1 tablet by mouth daily with food Active cetirizine (ZYRTEC) 10 MG tablet Take 1 tablet by mouth once daily 30 tablet 5 0 Active Active Problems Problem Noted Date Diagnosed [...] within 1 month--to be ordered by referring career development engineer Maternal morbid obesity, antepartum 08/23/2019 Assessment & Plan (09/20/2019 12:17 PM CDT): Total weight gain of 24 lb to date. Has a visit to go over dietary recommendations at [facility] in the next few weeks. Maternal [...] Plan (08/23/2019 11:51 AM CDT): Genesis and I discussed the challenges that face a twin [...] 1. To review blood pressure log with career development engineer 2. Report blood pressure values greater than [...] 1. To review blood pressure log with career development engineer 2. Strongly encouraged to report blood pressure [...] Medicine recommendations: 1. Patient instructed to notify Multiple Effect Evaporator Operator of her use of Seroquel as the newborns are at increased risk of withdrawal and should have increased supervision in the first few days of life Assessment & Plan (08/23/2019 11:49 AM CDT): Seroquel: US FDA safety category C. Late third trimester exposure is associated with withdrawal symptoms. Maternal Medicine recommendations: 1. Patient instructed to notify Multiple Effect Evaporator Operator of her use of Seroquel as the [...] of Binge Drinking Not on file 09/29 Comments No Sex and Gender Information Value Date Recorded Sex Assigned at Not on file Legal Sex Female 7:46 AM SKIVER MACHINE OPERATOR Gender Identity Not on file [...] 9:52 AM CDT Height 157.5 cm (5' 2) 11/29/2019 9:52 AM CDT Body Mass Index 54.18 11/29/2019 9:52 AM CDT Plan of Treatment Health Maintenance Due Date Last Done Comments HIV SCREENING 2010 HEPATITIS C SCREENING 01/03/2013 DTAP/TDAP/TD VACCINES (1 - Tdap) 2014 HEPATITIS B VACCINE (1 of 3 - 19+ 3-dose series) 2014 COVID-19 VACCINE ( - 2023-2 5 season) 2024 INFLUENZA VACCINE (Season Ended) 2025 ZOSTER VACCINE (1 of 2) 2045 HIB [...] patient's age to complete this topic Insurance REPLACED BY [facility] MEDICAID - OUT OF STATE REPLACED BY [facility] MEDICAID - [place] Care Teams Appeals Coordinator Relationship Specialty Start Date End Date Eliud Zaman MD [facility] [place] [address] PCP - General Family Medicine 10/17/19 Danielle Malhotra DO [address] [place] [address] Cardiovascular Disease 11/24/19
--- OUTSIDE RECORDS SUMMARY | 2024-11-07 12:11 | XMS_ITS | Referral Summary ---
Author Organization [facility] Address [address] [place] [address] Care Team Providers Care Oyster Opener Name Role Phone Eliud Zaman MD Primary Care Provider [phone] Allergies Active Allergy Reactions Criticality Noted Date [...] 0 10/02/2022 Body mass index 40.0-44.9, adult ([facility]) 10/02 Palpitations 10/02/2022 ADHD (attention deficit hyperactivity [...] on file Legal Sex Female 6:47 AM DRAG OUT MAN Gender Identity Not on file Sexual Orientation [...] Plan of Treatment Not on file Insurance [facility] ACC[facility] CHOICE [facility] Care Teams Oyster Opener Relationship Specialty Start Date End Date Eliud Zaman MD PCP - General 08/28/16
--- OUTSIDE RECORDS SUMMARY | 2024-11-07 12:11 | XMS_ITS | Clinical Summary ---
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 Gender Identity Not on file Sexual [...] 5 season) 2024 01/16/2021, 12/20/2020 Influenza Vaccine (Season Ended) 2025 04/08/2018, 01/31/2014 DTaP/Tdap/Td Vaccine (2 - Td or Tdap) 01/12/2030 01/13/2020 HPV Vaccines Aged Out No longer eligi ble based on patient's age to complete this topic Pneumococcal vaccine <65 Aged Out No longer eligible based on patient's age to complete this topic Insurance [facility] ACCESS CHOICE [facility] Care Teams Automotive Collision Estimator Relationship Specialty Start Date End Date Eliud Zaman MD PCP - General 08/28/16
--- OUTSIDE RECORDS SUMMARY | 2024-11-07 12:11 | XMS_ITS | Encounter Summary ---
Author Organization [facility] Address [address] [place] [address] Care Team Providers Care Client Reporting Associate Name Role Phone Eliud Zaman MD Primary Care Provider [phone] Encounter Details Date Type Department Care Team (Late st Contact Info) Description 07/17/2016 Orders Only [facility] ProviderYared MD [address] [place] [address] Social History Tobacco Use Types Packs/Day Years Used Date Smoking Tobacco: Never Alcohol Use Standard Drinks/Week Comments No 0 (1 standard drink = 0.6 oz pur e alcohol) Comments Unknown Sex and Gender Information Value Date Recorded Sex Assigned at Not on file 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
[2024-11-10 08:18] LABS: Lyme Disease Ab (IgM), Blot NEGATIVE (NEGATIVE); Lyme Disease Ab(IgG), Blot NEGATIVE (NEGATIVE)
== END 2024-11-07 10:54 | disposition home or self-care (01) ==
LOC: ANHGOSHLAB 10:53
PROVIDERS: PCP Family Medicine; Visit Provider Nurse Practitioner Family
DX: S20.469A Insect bite (nonvenomous) of unspecified back wall of thorax, initial encounter (principal); W57.XXXA Bitten or stung by nonvenomous insect and other nonvenomous arthropods, initial encounter; L53.8 Other specified erythematous conditions; R23.4 Changes in skin texture
CPT/HCPCS: 36415; 86617; 86757

== ENCOUNTER 2025-02-10 08:54 | Emergency (ER) | payer OTHER, SELFPAY ==
--- NOTE | ~2025-02-10 | XR_ITS ---
EXAMINATION: XR foot RT min 3V, 02/10/2025 8:55 CDT HISTORY: twisting injury, medial Rt. foot pain/swelling COMPARISON: No comparisons available. Findings: No acute fracture or malalignment. No significant degenerative changes. Soft tissues unremarkable. Impression: No acute fracture or malalignment. Reviewed, dictated and finalized at location A. Impression: No acute fracture or malalignment.
[2025-02-10 08:54] VITALS: BP 141/116; PULSE 86; RESP 18; TEMP 35.9; O2SAT 100
--- NOTE | 2025-02-10 08:56 | ED_ITS ---
HPI - Extremity Injury (Lower) General Chief Complaint: Extremity Injury, Lower Stated Complaint: right foot pain Time Seen by Provider: 02/10/25 08:55 Source: patient Mode of arrival: ambulatory Limitations: no limitations History of Present Illness HPI Narrative: Patient is a 30-year-old female with a right foot injury last night while fishing. She stepped on a large boulder and twisted the right foot but not the ankle. Pain is specifically at the right foot great toe and 2nd toe. No other injuries. MD complaint: foot injury Onset (ago): day(s) (Two) Type of Injury: inversion Place: home Severity: moderate Severity scale (1-10): 5 Relieving factors: cold therapy, immobilization and rest Exacerbating factors: weight bearing, movement and palpation Context: direct blow Associated symptoms: able to partially bear weight Other symptoms: none Treatments prior to arrival: cold therapy Related Data Allergies Allergy/AdvReac Type Severity Reaction Status Date / Time amoxicillin Allergy Unknown Hives Verified 02/10/25 08:56 Penicillins Allergy Unknown Hives Verified 02/10/25 08:56 doxycycline AdvReac Severe Nausea and Verified 02/10/25 08:56 Vomiting Review of Systems Review of Systems: All systems reviewed & are unremarkable except as noted in HPI and below Constitutional: Constitutional: Reports no additional constitutional complaints Eyes: Eyes: Reports no additional eye complaints ENT: Reports system reviewed and no additional complaints, except as documented Cardiovascular: Cardiovascular: Reports no additional cardiovascular complaints Respiratory: Respiratory: Reports no additional respiratory complaints Gastrointestinal: Gastrointestinal: Reports no additional gastrointestinal complaints Genitourinary: Genitourinary: Reports no additional female genitourinary complaints Musculoskeletal: Musculoskeletal: Reports no additional musculoskeletal complaints Integumentary/Breasts: Skin/Breast: Reports system reviewed and no additional complaints, except as docu Neurologic: Reports system reviewed and no additional complaints, except as documented Psychiatric: Psychiatric: Reports no additional psychiatric complaints Endocrine: Endocrine: Reports no additional endocrine complaints Hematologic/Lymphatic: Hematologic/Lymphatic: Reports no additional hematologic/lymphatic complaints Allergic/Immunologic: Allergic/Immunologic: Reports no additional allergic/immunologic complaints PMFSH Past Medical History Medical History Hyperlipidemia Hypothyroid Hypertension complicating in third trimester Gestational diabetes mellitus (GDM) during childbirth controlled on oral hypoglycemic therapy Generalized anxiety disorder Attention-deficit hyperactivity disorder, unspecified type Personal history of traumatic brain injury Surgical History Surgical History Previous section 01/12/20, [facility], female, 37w4d, 7#8, GDM, CHTN, Twin 01/12/20, [facility], male, 37w4d, 7#13, GDM, CHTN, Twin Family History Family History Sibling Acute Crohn's disease Unknown Heart disease Unknown Obesity Social History Social History Social History: Caffeine-none Smoking status: Never smoker Alcohol intake: never Substance use: former 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 Lack of Transportation: No Lack of Food: Never True Current Housing: I Have Housing Concerned About Future Housing: No Difficulty Paying Gas/Electric Bills: No Difficulty Paying for Meds: No Currently Unemployed: No Education: Associate Degree Difficulty w/ Childcare or Family Care: No Gender identity (if verbalized by the patient): Female Spiritual care concerns: No Exam Const: General: healthy appearing Nutritional Appearance: well nourished Orientation/consciousness: patient oriented x3 HENMT: Head: normal to inspection Ears: external ears normal Face/Nose/Sinus: Normal external nose present Eyes: Conjunctivae: conjunctivae normal Pupils: Equal, round and reactive pupils present EOM: EOMs intact bilaterally Neck: Neck: normal visual inspection Chest: Chest palpation & inspection: normal inspection of the chest Resp: Effort & Inspection: normal respiratory effort and not labored Auscultation: clear to auscultation bilaterally and no crackles Cardio: Rate: regular rate Rhythm: regular rhythm Heart sounds: no murmurs GI: Inspection: non-distended GI Palp: Yes Soft to palpation and No Tenderness to palpation present (GI) Auscultation: normal bowel sounds : General: Yes bladder normal to palpation Back/Spine/Pelvis: Back: no CVA tenderness Skin: General skin exam: normal color Rashes: no rashes Wounds: no wounds Neuro: General: patient oriented x3, moves all extremities and no meningeal signs Extrem: General: abnormal to inspection Other: Right foot distal aspect near the 1st and 2nd phalanges has tenderness of the dorsum foot around mid foot and distally without ecchymosis Psych: Mental Status: mental status grossly normal Affect: normal affect Attitude: cooperative Course Vital Signs Vital signs: Vital Signs Temperature 35.9 C L 02/10/25 08:54 Pulse Rate 86 02/10/25 08:54 Respiratory Rate 18 02/10/25 08:54 Pulse Oximetry 100 02/10/25 08:54 Oxygen Delivery Room Air 02/10/25 08:54 Temperature 35.9 C L 02/10/25 08:54 Pulse Rate 86 02/10/25 08:54 Respiratory Rate 18 02/10/25 08:54 Pulse Oximetry 100 02/10/25 08:54 Oxygen Delivery Room Air 02/10/25 08:54 MDM - Extremity Injury (Lower) MDM Narrative Medical decision making narrative: Patient is a 30-year-old female with a right foot injury last night. X-ray. Toradol. Imaging Data Attestation: I personally reviewed and interpreted this imaging study as follows: My impression: X-ray right foot is negative for acute process pending final reading Discharge Plan Discharge Clinical Impression: Foot sprain Qualifiers: Encounter type: initial encounter Laterality: right Qualified Code(s): S93.601A - Unspecified sprain of right foot, initial encounter Patient Disposition: Home Condition: Stable Instructions: Foot Sprain (ED) Additional Instructions: Rest, ice, compression and elevation. Ibuprofen and Tylenol. Patient Language: Greenlandic Prescriptions: No Action albuterol sulfate [Ventolin HFA] 90 mcg/actuation HFA aerosol inhaler 1 inh inhalation Q4H PRN (Reason: shortness of breath or wheezing) Qty: 6.7 0RF quetiapine [Seroquel] 50 mg tablet 50 mg PO HS Qty: 90 1RF dextroamphetamine-amphetamine [Adderall XR] 10 mg capsule,extended release 24hr 10 mg PO DAILY Qty: 30 0RF Rx Instructions: take at nonovember dextroamphetamine-amphetamine [Adderall XR] 10 mg capsule,extended release 24hr 10 mg PO DAILY Qty: 30 0RF Rx Instructions: take at nodecember dextroamphetamine-amphetamine [Adderall XR] 10 mg capsule,extended release 24hr 10 mg PO DAILY Qty: 30 0RF Rx Instructions: take at nojanuary dextroamphetamine-amphetamine [Adderall XR] 30 mg capsule,extended release 24hr 30 mg PO DAILY Qty: 30 0RF Rx Instructions: December dextroamphetamine-amphetamine [Adderall XR] 30 mg capsule,extended release 24hr 30 mg PO DAILY Qty: 30 0RF Rx Instructions: January dextroamphetamine-amphetamine [Adderall XR] 30 mg capsule,extended release 24hr 30 mg PO DAILY Qty: 30 0RF Rx Instructions: November terbinafine HCl 250 mg tablet 250 mg PO DAILY Qty: 30 0RF ondansetron 4 mg tablet,disintegrating 4 mg PO Q8H PRN (Reason: nausea and vomiting) Qty: 45 1RF Drysol 20 % solution See Rx Instructions .ROUTE .COMPLEX Qty: 75 1RF Dose Instruction: APPLY TOPCIALLY TWICE WEEKLY NEEDED FOR HYPERHIDROSIS Rx Instructions: APPLY TOPCIALLY TWICE WEEKLY NEEDED FOR HYPERHIDROSIS Follow-up/Referrals: Eliud Zaman MD [Primary Care Provider, [facility]] Time of Disposition: 09:19
--- OUTSIDE RECORDS SUMMARY | 2025-02-10 08:56 | XMS_ITS | Clinical Summary ---
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
--- OUTSIDE RECORDS SUMMARY | 2025-02-10 08:56 | XMS_ITS | Clinical Summary ---
Author Organization [facility] Address [address] [place] [address] Care Team Providers Care Crts Name Role Phone Eliud Zaman MD Primary Care Provider [phone] Danielle Malhotra DO Unavailable [phone] Source Comments [facility],non-owned Affiliates and Associated Physician Practices is amultiple site organization consisting of ambulatory clinics and hospital sitesin [place], [place], [place] and [place]. This disclosure is being madepursuant to the Care Everywhere program and may not contain all information available regarding this patient. Last updated 18.[facility] Allergies Active Allergy Reactions Criticality Noted Date [...] Glucagon (BAQSIMI ONE PACK) 3 MG/DOSE POWD [place] 3 mg into the nose as needed [...] within 1 month--to be ordered by referring business services coordinator Maternal morbid obesity, antepartum 08/23/2019 Assessment & Plan (09/20/2019 12:17 PM CDT): Total weight gain of 24 lb to date. Has a visit to go over dietary recommendations at [facility] in the next few weeks. Maternal [...] 1. To review blood pressure log with business services coordinator 2. Report blood pressure values greater than [...] 1. To review blood pressure log with business services coordinator 2. Strongly encouraged to report blood pressure [...] recommendations: 1. Patient instructed to notify Multiple Punch Press Operator of her use of Seroquel as the newborns are at increased risk of withdrawal and should have increased supervision in the first few days of life Assessment & Plan (08/23/2019 11:49 AM CDT): Seroquel: US FDA safety category C. Late third trimester exposure is associated with withdrawal symptoms. Maternal Medicine recommendations: 1. 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 Gender Identity Not on file Sexual Orientation [...] of 3 - 19+ 3-dose series) 2014 HPV VACCINE (1 - 3-dose SCDM series) 2022 COVID-19 VACCINE (1 - 2023-2 5 season) 2025 INFLUENZA VACCINE (#1) 2025 ZOSTER VACCINE (1 of 2) 2045 [...] patient's age to complete this topic Insurance [employer] MEDICAID - OUT OF STATE [facility] MEDICAID [place] Care Teams Crts Relationship Specialty Start Date End Date Eliud Zaman MD [facility] [place] [address] PCP - General Family Medicine 10/17/19 [place] [address] [place] [id number] Cardiovascular Disease 11/24/19
--- OUTSIDE RECORDS SUMMARY | 2025-02-10 08:56 | XMS_ITS | Encounter Summary ---
Author Organization [facility] Address [address] [place] [address] Care Team Providers Care Patrol Lady Name Role Phone Eliud Zaman MD Primary Care Provider [phone] Encounter Details Date Type Department Care Team (Late st Contact Info) Description 07/17/2016 Orders Only [facility] ProviderYared MD [address] [place] [address] Social History Tobacco Use Types Packs/Day Years Used Date Smoking Tobacco: Never Alcohol Use Standard Drinks/Week Comments No 0 (1 standard drink = 0.6 oz pur e alcohol) Comments Unknown Sex and Gender Information Value Date Recorded Sex Assigned at Not on file 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
--- OUTSIDE RECORDS SUMMARY | 2025-02-10 08:56 | XMS_ITS | Clinical Summary ---
Author Organization [facility] Address [address] [address] [place] [address] Care Team Providers Care Sales Representative Publications Name Role Phone Unavailable Primary Care Provider [...] 2:41 PM CDT Height 160 cm (5' 3) 03/31/2012 2:41 PM CDT Body Mass Index 39.57 03/31/2012 2:41 PM CDT Plan of Treatment Health Maintenance Due Date Last Done Comments Cervical Cancer Screening Pa p Smear (Age 30 to 64) Every 3 Years 1995 Annual Physical 1998 Hepatitis C 2013 DTaP, Tdap and Td Vaccines ( 1 - Tdap) 2014 Hepatitis B Vaccines (1 of 3 - 19+ 3-dose series) 2014 HPV Vaccines (1 - 3-dose SCD M series) 2022 Cervical Cancer Screening Pa p with HPV Testing (Age 30 to 64) Every 5 Years 2025 Cervical Cancer Screening with HPV 2025 COVID-19 Vaccine ( - 2023-2 5 season) 2025 Meningococcal B Vaccine Aged Out No l onger eligible based on patient's age to complete this topic Meningococcal Vaccine Aged Out No joey karen eligible based on patient's age to complete this topic Pneumococcal Vaccine: Pediat rics (0 to 5 Years) and At-Risk Patients (6 to 49 Years) Aged Out No longer eligible b ased on patient's age to complete this topic RSV Immunizations Under 20 Months Aged Out No longer eligible based on patient's age to complete this topic
--- OUTSIDE RECORDS SUMMARY | 2025-02-10 08:56 | XMS_ITS | Encounter Summary ---
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
--- OUTSIDE RECORDS SUMMARY | 2025-02-10 08:56 | XMS_ITS | Encounter Summary ---
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
--- OUTSIDE RECORDS SUMMARY | 2025-02-10 08:56 | XMS_ITS | Clinical Summary ---
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 Gender Identity Not on file Sexual Orientation [...] Visit/Exam 18-64 2013 Covid-19 Vaccine (3 - Modern a risk series) 02/13/2021 01/16/2021, 12/20/2020 HPV Vaccines (1 - 3-dose SCD M series) 2022 Influenza Vaccine (#1) 2025 8, 01/31/2014 DTaP/Tdap/Td Vaccine (2 - Td or Tdap) 01/12/2030 01/13/2020 Pneumococcal vaccine <65 Aged Out No longer eligible based on patient's age to complete this topic Insurance [facility] ACCESS CHOICE [facility] Care Teams Violin Tutor Relationship Specialty Start Date End Date Eliud Zaman MD PCP - General 08/28/16
[2025-02-10] MEDS: KETOROLAC (*BKC) 60 MG/2 ML VIAL IM (09:06)
[2025-02-10] MEDS: ACETAMINOPHEN 500 MG TABLET 1000 MG PO (09:37)
[2025-02-10 09:40] VITALS: BP 132/85; PULSE 82; RESP 16; TEMP 36.6; O2SAT 100
== END 2025-02-10 09:40 | disposition home or self-care (01) ==
LOC: CHSED 09:32
PROVIDERS: Emergency Provider Emergency Medicine; PCP Family Medicine
DX: S93.601A Unspecified sprain of right foot, initial encounter (principal); E03.9 Hypothyroidism, unspecified; E78.5 Hyperlipidemia, unspecified; I10 Essential (primary) hypertension; X50.0XXA Overexertion from strenuous movement or load, initial encounter
CPT/HCPCS: 73630; 96372; 99283; A9270; J1885

== ENCOUNTER 2025-05-02 15:34 | Outpatient (CLI) | payer OTHER, SELFPAY ==
--- OUTSIDE RECORDS SUMMARY | 2025-05-02 16:45 | XMS_ITS | Encounter Summary ---
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
--- OUTSIDE RECORDS SUMMARY | 2025-05-02 16:45 | XMS_ITS | Encounter Summary ---
Author Organization 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
--- OUTSIDE RECORDS SUMMARY | 2025-05-02 16:45 | XMS_ITS | Encounter Summary ---
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
--- OUTSIDE RECORDS SUMMARY | 2025-05-02 16:46 | XMS_ITS | Clinical Summary ---
Author Organization [facility] Address [facility] [place] [address] Care Team Providers Care Carry Out Clerk Name Role Phone Unavailable Primary Care Provider [...] with HPV 2025 COVID-19 Vaccine ( - 2024-2 6 season) 2025 Influenza Adult (#1) 2025 Hepatitis A Vaccines Aged Out No long er eligible based [...]
--- OUTSIDE RECORDS SUMMARY | 2025-05-02 16:46 | XMS_ITS | Encounter Summary ---
Author Organization [facility] Address [address] [facility] [address] [place] [address] Care Team Providers Care Milk Driver Name Role Phone Eliud Zaman MD Primary Care Provider +1 [phone] Encounter Details Date Type Department Care Team (Late st Contact Info) Description 07/17/2016 Orders Only [facility] ProviderYared MD [address] [place] [address] Social History Tobacco Use Types Packs/Day Years Used Date Smoking Tobacco: Never Alcohol Use Standard Drinks/Week Comments No 0 (1 standard drink = 0.6 oz pur e alcohol) Comments Unknown Sex and Gender Information Value Date Recorded Sex Assigned at Not on file 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
--- OUTSIDE RECORDS SUMMARY | 2025-05-02 16:46 | XMS_ITS | Clinical Summary ---
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
--- OUTSIDE RECORDS SUMMARY | 2025-05-02 16:46 | XMS_ITS | Clinical Summary ---
Author Organization [facility] Address [address] [place] [address] Care Team Providers Care Ui Engineer Name Role Phone Eliud Zaman MD Primary Care Provider +1- [phone] Danielle Malhotra DO Unavailable [phone] Source Comments [facility],non-owned Affiliates and Associated Physician Practices is amultiple site organization consisting of ambulatory clinics and hospital sitesin [place], [place], [place] and [place]. This disclosure is being madepursuant to the Care Everywhere program and may not contain all information available regarding this patient. Last updated 18.[facility] Allergies Active Allergy Reactions Criticality Noted Date [...] Glucagon (BAQSIMI ONE PACK) 3 MG/DOSE POWD [place] 3 mg into the nose as needed [...] than the 95th percentile GDMA2 I counseled Genessi Banegas regarding the adverse outcomes associated with [...] within 1 month--to be ordered by referring director of health care marketing Maternal morbid obesity, antepartum 08/23/2019 Assessment & Plan (09/20/2019 12:17 PM CDT): Total weight gain of 24 lb to date. Has a visit to go over dietary recommendations at [facility] in the next few weeks. [...] 1. To review blood pressure log with director of health care marketing 2. Report blood pressure values greater than [...] 1. To review blood pressure log with director of health care marketing 2. Strongly encouraged to report blood pressure [...] prevention of preeclampsia in at risk women ([place] DSR, 2008). There is no significant risk [...] Medicine recommendations: 1. Patient instructed to notify Senior Loss Control Specialist of her use of Seroquel as the newborns are at increased risk of withdrawal and should have increased supervision in the first few days of life Assessment & Plan (08/23/2019 11:49 AM CDT): Seroquel: US FDA safety category C. Late third trimester exposure is associated with withdrawal symptoms. Maternal Medicine recommendations: 1. 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 Gender Identity Not on file Sexual [...] of 3 - 19+ 3-dose series) 2014 PAP SMEAR 01/09/2016 HPV VACCINE (1 - 3-dose SCDM series) 2022 Cervical Cancer Screening 2025 PAP with HPV 2025 COVID-19 VACCINE (1 - 2024-2 6 season) 2025 INFLUENZA VACCINE (#1) 2025 ZOSTER [...] Insurance [place] MEDICAID - OUT OF STATE [facility] [place]ICAID [place] Care Teams Ui Engineer Relationship Specialty Start Date End Date Eliud Zaman MD [address] [place] [id number] PCP - General Family Medicine 10/17/19 Danielle Malhotra DO [address] [place] [address], [place] [address] Cardiovascular Disease 11/24/19
--- OUTSIDE RECORDS SUMMARY | 2025-05-02 16:46 | XMS_ITS | Clinical Summary ---
Author Organization [facility] Care Team Providers Care Computer Systems Architect Name Role Phone Unavailable Primary Care Provider Unavailabl e Social History Tobacco Use Types Packs/Day Years Used Date Smoking Tobacco: Never Assessed Comments Unknown Sex and Gender Information Value Date Recorded Sex Assigned at Not on file Legal Sex Female 11:34 AM PATIENT CARE PROVIDER Gender Identity Not on file Sexual Orientation Not on file Plan of Treatment Health Maintenance Due Date Last Done Comments Hepatitis C Virus (HCV) Screening 1995 Hepatitis B Immunization (1 of 3 - 19+ 3-dose series) 2014 Pap Smear 01/09/2016 Human Papillomavirus (HPV) Immunization (1 - 3-dose SCDM series) 2022 Cervical Cancer Screening (CCS) 2025 HPV/Cotest 2025 Influenza Immunization (#1) 01/29/202501/2018, 01/31/2014 SARS-COV-2 Immunization ( season) 2025 Respiratory Syncytial Virus (RSV) Immunization (Adult) (1 [...]
[2025-05-02 19:17] LABS: Thyroid Stimulating Hormone Reflex 1.720 uIU/mL (0.465-4.68)
== END 2025-05-02 15:35 | disposition home or self-care (01) ==
LOC: ANHGOSHLAB 15:35
PROVIDERS: PCP Family Medicine; Visit Provider Nurse Practitioner Family
DX: S20.469A Insect bite (nonvenomous) of unspecified back wall of thorax, initial encounter (principal); W57.XXXA Bitten or stung by nonvenomous insect and other nonvenomous arthropods, initial encounter; I10 Essential (primary) hypertension; E66.01 Morbid (severe) obesity due to excess calories; Z68.42 Body mass index [BMI] 45.0-49.9, adult; R61 Generalized hyperhidrosis
CPT/HCPCS: 36415; 84443; 86618

== ENCOUNTER 2025-05-20 09:00 | Emergency (ER) | payer OTHER, SELFPAY ==
[2025-05-20] VITALS (16 sets, daily range): BP systolic 128–164; BP diastolic 88–129; PULSE 68–116; RESP 17–20; TEMP 36.1–36.3; O2SAT 92–100
--- NOTE | ~2025-05-20 | CT_ITS ---
CHEST ABDOMEN PELVIS WITH CONTRAST CLINICAL HISTORY: Abdominal pain, Chest pain, N/V/D x1 day . COMPARISON: CT abdomen pelvis 06/22/2024 TECHNIQUE: Helical CT performed from thoracic inlet to symphysis pubis 100 mL Omnipaque 350 Coronal, sagittal reformats. Multi planar MIPS CT images acquired with automatic exposure control for dose reduction DLP: 1294 mGy-cm FINDINGS: CHEST- Lungs/Pleura: Clear. Thoracic Aorta: No dissection. No aneurysm. Pulmonary arteries: Normal caliber. Heart: Unremarkable. Tracheobronchial tree: Patent. Nodes: No enlarged nodes. Bones: No acute bony abnormality. Soft tissues: Small nodule right lobe of thyroid with calcification. ABDOMEN/PELVIS- Liver: Enlarged. Steatosis. Gallbladder: Unremarkable. Spleen: Unremarkable. Pancreas: Unremarkable. Adrenal glands: Unremarkable. Kidneys: Right kidney- No hydronephrosis. No renal stones. Left kidney- No hydronephrosis. No renal stones. Distal esophagus/stomach: Small sliding hiatal hernia and/or distal esophageal wall thickening/esophagitis. Small bowel loops: Normal caliber and wall thickness. Colon: Diffusely under distended with mild apparent wall thickening. Normal appendix, subhepatic. Nodes: No enlarged nodes. Peritoneum: No ascites. No free air. Urinary bladder: Unremarkable. Uterus: Unremarkable. Adnexa: No masses. Bones: No acute bony abnormality. Soft tissues: Unremarkable. Aorta: No aneurysm or dissection. IVC: Unremarkable. Main portal vein/SMV/splenic vein: Patent. IMPRESSION: CHEST- 1. No acute abnormality. ABDOMEN/PELVIS- 1. Minimal colitis not excluded. 2. Otherwise no acute abnormality. Reviewed, dictated and finalized at location R. 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
--- OUTSIDE RECORDS SUMMARY | 2025-05-20 09:04 | XMS_ITS | Clinical Summary ---
Author Organization [facility] Address [facility] [place] [address] Care Team Providers Care Regional Refrigerated Cdl Truck Driver Name Role Phone Unavailable Primary Care Provider [...]
--- OUTSIDE RECORDS SUMMARY | 2025-05-20 09:04 | XMS_ITS | Clinical Summary ---
Author Organization [facility] Address [address] [place] [address] Care Team Providers Care Mallet And Die Cutter Name Role Phone Eliud Zaman MD Primary Care Provider [phone]- [phone] Danielle Malhotra DO Unavailable [phone] [facility],non-owned Affiliates and Associated Physician Practices is amultiple site organization consisting of ambulatory clinics and hospital sitesin [place], [place], [place] and [place]. This disclosure is being madepursuant to the Care Everywhere program and may not contain all information available regarding this patient. Last updated 18.[facility] Allergies Active Allergy Reactions Criticality Noted Date [...] Glucagon (BAQSIMI ONE PACK) 3 MG/DOSE POWD [place] 3 mg into the nose as needed [...] within 1 month--to be ordered by referring distillation operator Maternal morbid obesity, antepartum 08/23/2019 Assessment & Plan (09/20/2019 12:17 PM CDT): Total weight gain of 24 lb to date. Has a visit to go over dietary recommendations at [facility] in the next few weeks. Maternal [...] 1. To review blood pressure log with distillation operator 2. Report blood pressure values greater than [...] 1. To review blood pressure log with distillation operator 2. Strongly encouraged to report blood pressure [...] Medicine recommendations: 1. Patient instructed to notify Vocational Placement Specialist of her use of Seroquel as the newborns are at increased risk of withdrawal and should have increased supervision in the first few days of life Assessment & Plan (08/23/2019 11:49 AM CDT): Seroquel: [place] FDA safety category C. Late third trimester exposure is associated with withdrawal symptoms. Maternal Medicine recommendations: 1. 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
--- OUTSIDE RECORDS SUMMARY | 2025-05-20 09:04 | XMS_ITS | Encounter Summary ---
Author Organization [facility] Address [address] [facility] [address] [place] [address] Care Team Providers Care Boatwright Name Role Phone Eliud Zaman MD Primary Care Provider [phone] [phone] Encounter Details Date Type Department Care Team (Late st Contact Info) Description 07/17/2016 Orders Only [facility] ProviderYared MD [address] [place] [address] Social History Tobacco Use Types Packs/Day Years Used Date Smoking Tobacco: Never Alcohol Use Standard Drinks/Week Comments No 0 (1 standard drink = 0.6 oz pur e alcohol) Comments Unknown Sex and Gender Information Value Date Recorded Sex Assigned at Not on file 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
--- OUTSIDE RECORDS SUMMARY | 2025-05-20 09:04 | XMS_ITS | Clinical Summary ---
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
--- OUTSIDE RECORDS SUMMARY | 2025-05-20 09:04 | XMS_ITS | Encounter Summary ---
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
--- OUTSIDE RECORDS SUMMARY | 2025-05-20 09:04 | XMS_ITS | Encounter Summary ---
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
--- OUTSIDE RECORDS SUMMARY | 2025-05-20 09:04 | XMS_ITS | Encounter Summary ---
Author Organization [facility] Address [address] [address] Care Team Providers Care Chalk Extruding Machine Operator Name Role Phone Eliud Zaman MD Primary Care Provider +1 -[phone] Encounter Details Date Type Department Care Team (Late st Contact Info) Description 10/05/2011 Orders Only [facility] ProviderYared MD [address] [place] [address] Social History Tobacco Use Types Packs/Day Years Used Date Smoking Tobacco: Never Assessed Comments Unknown Sex and Gender Information Value Date Recorded Sex Assigned at Not on file 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
--- OUTSIDE RECORDS SUMMARY | 2025-05-20 09:04 | XMS_ITS | Clinical Summary ---
Author Organization [facility] Address [address] [place] [address] Care Team Providers Care Corporate Planner Name Role Phone Eliud Zaman MD Primary Care Provider [phone] [phone] Allergies Active Allergy Reactions Criticality Noted Date [...] 0 10/02/2022 Body mass index 40.0-44.9, adult ([facility]) 10/02 Palpitations 10/02/2022 ADHD (attention [...] on file Legal Sex Female 6:47 AM DIRECTOR OF ACADEMIC SUPPORT Gender Identity Not on file Sexual Orientation [...] patient's age to complete this topic Insurance [facility] CHOICE [facility] Care Teams Corporate Planner Relationship Specialty Start Date End Date Eliud Zaman MD PCP - General 08/28/16
[2025-05-20 09:36] LABS: Hematocrit 43.4 % (35.0-49.0); Hemoglobin 14.8 g/dL (12.0-15.0); Immature Granulocyte Percent A 1.3 % (0.0-0.0); Lymphocytes Absolute Auto 1.55 K/mm3 (1.10-4.50); Mean Corpuscular HGB Conc 34.1 g/dL (32-36); Mean Corpuscular Hemoglobin 28.7 pg (27.0-31.0); Mean Corpuscular Volume 84.3 fL (78.0-102.0); Nucleated Red Blood Cells Absolute Auto 0.00 K/mm3 (0.00-0.00); Nucleated Red Blood Cells Perc 0.0 % (0-0.0); Platelet Count Result 439 K/mm3 (150-420); Red Blood Count 5.15 M/mm3 (4.20-5.40); White Blood Count 15.1 K/mm3 (4.8-10.8)
--- NOTE | 2025-05-20 09:37 | ED.NAVMDI ---
HPI - Nausea/Vomiting/Diarrhea General Chief complaint: Nausea/Vomiting/Diarrhea Stated complaint: heart pain Time Seen by Provider: 05/20/25 09:02 History of Present Illness HPI Narrative: 30-year-old white female presents with 3 4 hour history of almost constant and vomiting. She reports she has had severe abdominal cramps and spasms, keeps dry heaving even when there is nothing in her stomach. Reports it is almost violent in nature. Antibody or 12 hours ago she started having some chest pain as well. She said that is new, but thinks it was heartburn which she sometimes get at night. She is a lifelong cannabis smoker, smokes throughout every day. She has had a couple of episodes previously but is vague as to when they were.\ She denies recent fever, chills, sinus drainage, sore throat, cough, palpitations, near-syncope or syncope. Denies any antecedent abdominal pain, nausea or vomiting, diarrhea or constipation, had no prodrome heading up to the development of her symptoms. Related Data Allergies Allergy/AdvReac Type Severity Reaction Status Date / Time amoxicillin Allergy Unknown Hives Verified 05/20/25 09:15 Penicillins Allergy Unknown Hives Verified 05/20/25 09:15 doxycycline AdvReac Severe Nausea and Verified 05/20/25 09:15 Vomiting Review of Systems Review of Systems: ros neg except as in HPI PMFSH Past Medical History Medical History (Updated 05/20/25 @ 12:36 by Mohsen Guerra MD) Broken foot hairline fracture of right foot, ~02/22 Hyperlipidemia Hypothyroid Hypertension complicating in third trimester Gestational diabetes mellitus (GDM) during childbirth controlled on oral hypoglycemic therapy Generalized anxiety disorder Attention-deficit hyperactivity disorder, unspecified type Personal history of traumatic brain injury Surgical History Surgical History Previous section 01/12/20, [facility], female, 37w4d, 7#8, GDM, CHTN, Twin 01/12/20, [facility], male, 37w4d, 7#13, GDM, CHTN, Twin Family History Family History Sibling Acute Crohn's disease Unknown Heart disease Unknown Obesity Social History Social History Social History: Caffeine-none Smoking status: Never smoker Alcohol intake: never Substance use: former 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 Lack of Transportation: No Lack of Food: Never True Current Housing: I Have Housing Concerned About Future Housing: No Difficulty Paying Gas/Electric Bills: No Difficulty Paying for Meds: No Currently Unemployed: No Education: Associate Degree Difficulty w/ Childcare or Family Care: No Gender identity (if verbalized by the patient): Female Spiritual care concerns: No Exam Narrative: pleasant, morbidly obese, appears very uncomfortable but not toxic, holding emesis bag, numerous tattoos Const: General: cooperative, healthy appearing, no acute distress, alert, awake and Physically active Orientation/consciousness: patient oriented x3 HENMT: Head: normal to inspection, normocephalic and atraumatic Ears: hearing grossly normal bilaterally and external ears normal Face/Nose/Sinus: Normal external nose present, Normal nares present, Normal nasal mucous membranes and turbinates present and normal facial exam Face and sinus: normal facial exam Mouth: Yes Normal oral and palatal mucosa present, Yes lip normal, Yes tongue normal, Yes oropharynx normal and Yes dry mucous membranes Teeth and gingiva: dentition normal Throat: posterior oropharynx normal and tonsils normal ( erythematous) Eyes: General: appearance normal, both eyes and all related structures Alignment and Position: alignment normal and position normal Periorbital: periorbital findings normal Eyelids: eyelids normal Conjunctivae: conjunctivae normal Sclera: sclerae normal Cornea: corneas normal Pupils: Equal, round and reactive pupils present EOM: EOMs intact bilaterally Neck: Neck: normal visual inspection, full ROM and no lymphadenopathy Chest: Chest palpation & inspection: normal inspection of the chest Resp: Effort & Inspection: normal respiratory effort, able to speak in complete sentences, no audible wheezes, no respiratory distress and no use of accessory muscles Auscultation: clear to auscultation bilaterally Cardio: Jugular venous distension: no JVD Rate: regular rate Rhythm: regular rhythm GI: Inspection: normal to inspection, Pannus present and obesity GI Palp: No abdominal tenderness, No Tenderness to palpation present (GI), No Guarding due to palpation present (GI), No No hepatosplenomegaly present, No Palpable mass present and No Rebound tenderness present Skin: General skin exam: normal color, no rashes or lesions noted, elasticity normal and turgor normal Neuro: General: patient oriented x3, gait normal, tone normal and moves all extremities Cranial nerves: Yes CN's II-XII intact bilaterally, Yes Equal, round and reactive pupils present and Yes Bilaterally intact EOM present Speech: normal speech Motor exam (neuro): 5/5 motor strength present throughout and Normal motor muscle tone present throughout Sensory Exam: normal sensation Extrem: General: normal to inspection, normal exam except as noted and no pedal edema Psych: Appearance: grossly normal and well kempt Mental Status: mental status grossly normal Speech and movement: Normal speech and movement present Affect: normal affect Attitude: cooperative Thought process: Normal thought process present Course Course Emergency Course: Differential diagnosis includes but is not limited to gastritis, gastroenteritis, enteritis, colitis, diverticulitis, reflux, obstruction, cannabis hyperemesis syndrome, UTI, dehydration, electrolyte abnormality, pancreatitis, substance abuse, substance withdrawal, esophageal perforation considering that she has been vomiting for 24 hours but the chest pain did not start until about 8 hours ago. In addition to labs and urine, will need CT chest abdomen pelvis to rule out many of these conditions. Workup showed an H&H of 14.8 and pre 3.4, white count elevation of 15,000. CMP showed sodium 144, potassium is 3.6, chloride 109, bicarb is 20. Her anion gap was a little bit elevated at 15. BUN was 7 creatinine was 0.58. Liver functions were barely above normal Lipase and amylase were normal test was negative Urine showed trace ketones, otherwise negative Initial lactic acid was 3.6 I had treated the patient with 5 mg of Haldol IV, 2 mg of Ativan IV due to my concern that the intensity of her nausea vomiting could have been related to her heavy, daily cannabis use. She did have a good response to this medication, and was given 2 L of LR, as well as IV Protonix His 2nd lactic acid came down to 2 CT scan of chest abdomen pelvis with IV contrast was negative for any obstruction, dissection, Borhaeves, pancreatitis, but does show a small sliding hiatal hernia There were some very minimal thickening of an area of colon wall such that colitis can not be excluded but really does not fit her presentation Influenza, COVID, RSV are negative. Urine drug screen is pending Her presentation is most likely due to an acute gastroenteritis, or cannabis hyperemesis syndrome. Her clinical presentation and appearance in terms for restlessness, fidgeting, heavy cannabis odor, persistent dry emesis, is strongly suggestive of cannabis hyperemesis syndrome, I have discussed this broad differential bulb with her, and given her my clinical recommendation that she discontinue her cannabis use. Will discharge on ODT Zofran, pretonix. Medical decision making complexity and risk was high with review of extensive labs, images, radiology reports, multiple intravenous medications, management of elevated lactic acid Vital Signs Vital signs: Vital Signs Temperature 36.1 C L 05/20/25 09:04 Pulse Rate 86 05/20/25 09:04 Respiratory Rate 20 05/20/25 09:04 Blood Pressure 164/117 H 05/20/25 09:04 Pulse Oximetry 98 05/20/25 09:04 Oxygen Delivery Room Air 05/20/25 09:04 Temperature 36.3 C L 05/20/25 12:32 Pulse Rate 107 H 05/20/25 12:32 Respiratory Rate 20 05/20/25 12:32 Blood Pressure 142/98 H 05/20/25 12:32 Pulse Oximetry 99 05/20/25 12:32 Oxygen Delivery Room Air 05/20/25 12:32 MDM Differential Diagnosis Differential Diagnosis: See differential diagnosis in ED course Lab Data 05/20/25 09:24 05/20/25 09:24 Labs: Lab Results 05/20/25 05/20/25 05/20/25 Range/Units 09:24 10:06 11:43 WBC 15.1 H (4.8-10.8) K/mm3 RBC 5.15 (4.20-5.40) M/mm3 Hgb 14.8 (12.0-15.0) g/dL Hct 43.4 (35.0-49.0) % MCV 84.3 (78.0-102.0) fL MCH 28.7 (27.0-31.0) pg MCHC 34.1 (32-36) g/dL RDW 12.3 (11.6-14.4) % Plt Count 439 H (150-420) K/mm3 MPV 9.8 (9.2-11.8) fl Immature Gran % (Auto) 1.3 H (0.0-0.0) % Neut % (Auto) 86.2 H (50.0-70.0) % Lymph % (Auto) 10.3 L (18.0-42.0) % [place] % (Auto) 1.8 L (2.0-11.0) % Eos % (Auto) 0.1 L (1.0-6.0) % Baso % (Auto) 0.3 (0.0-1.0) % Lymph # (Auto) 1.55 (1.10-4.50) K/mm3 [place] # (Auto) 0.27 (0.10-0.90) K/mm3 Eos # (Auto) 0.01 L (0.02-0.50) K/mm3 Baso # (Auto) 0.05 (0.00-0.10) K/mm3 Abs Immat Gran (auto) 0.19 H (0.00-0.00) K/mm3 Absolute Neuts (auto) 13.00 H (1.70-7.20) K/mm3 Absolute Nucleated RBC 0.00 (0.00-0.00) K/mm3 Nucleated RBC % 0.0 (0-0.0) % Sodium 144 (137-145) mmol/L Potassium 3.6 (3.4-5.0) mmol/L Chloride 109 H (98-107) mmol/L Carbon Dioxide 20 L (22-30) mmol/L Anion Gap 15 H (4-12) mmol/L BUN 7 D (7-17) mg/dL Creatinine 0.58 L (0.7-1.0) mg/dL Estim Creat Clear Calc 130 ml/min Estimated GFR > 60 (59 - ) Glucose 145 H (65-110) mg/dL Calculated Osmolality 299 H (285-295) mOsm/kg Lactic Acid 3.6 H 2.0 (0.7-2.0) mmol/L Calcium 9.8 (8.4-10.2) mg/dL Magnesium 1.6 (1.6-2.3) mg/dL Total Bilirubin 0.4 (0.2-1.3) mg/dL AST 39 H (14-36) U/L ALT 43 H (6-35) U/L Alkaline Phosphatase 119 (38-126) U/L Total Protein 8.4 H (6.3-8.2) g/dL Albumin 5.0 (3.5-5.1) g/dL Lipase 26 (23-300) U/L Beta HCG, Quant < 2.39 mIU/ML Urine Color (Yellow) Urine Appearance (Clear) Urine pH (5.0-8.0) Ur Specific [place] (1.010-1.020) Urine Protein (Negative) Urine Glucose (UA) (Negative) Urine Ketones (Negative) Ur Blood (Man) (Negative) Urine Nitrate (Negative) Urine Bilirubin (Negative) Urine Urobilinogen (0.2-1.0) mg/dL Leukocyte Esterase Rfl (Negative) BREANN/UL Urine Opiates Screen (Negative) Urine Methadone Screen (Negative) Ur Barbiturates Screen (Negative) Ur Phencyclidine Scrn (Negative) Ur Amphetamine Screen (Negative) U Benzodiazepines Scrn (Negative) Urine Cocaine Screen (Negative) U Cannabinoids Screen (Negative) Influenza A (RT-PCR) Negative (Negative) Influenza B (RT-PCR) Negative (Negative) RSV (RT-PCR) Negative (Negative) SARS-CoV-2 RNA (RT-PCR) Negative (Negative) 05/20/25 Range/Units 11:46 WBC (4.8-10.8) K/mm3 RBC (4.20-5.40) M/mm3 Hgb (12.0-15.0) g/dL Hct (35.0-49.0) % MCV (78.0-102.0) fL MCH (27.0-31.0) pg MCHC (32-36) g/dL RDW (11.6-14.4) % Plt Count (150-420) K/mm3 MPV (9.2-11.8) fl Immature Gran % (Auto) (0.0-0.0) % Neut % (Auto) (50.0-70.0) % Lymph % (Auto) (18.0-42.0) % [place] % (Auto) (2.0-11.0) % Eos % (Auto) (1.0-6.0) % Baso % (Auto) (0.0-1.0) % Lymph # (Auto) (1.10-4.50) K/mm3 [place] # (Auto) (0.10-0.90) K/mm3 Eos # (Auto) (0.02-0.50) K/mm3 Baso # (Auto) (0.00-0.10) K/mm3 Abs Immat Gran (auto) (0.00-0.00) K/mm3 Absolute Neuts (auto) (1.70-7.20) K/mm3 Absolute Nucleated RBC (0.00-0.00) K/mm3 Nucleated RBC % (0-0.0) % Sodium (137-145) mmol/L Potassium (3.4-5.0) mmol/L Chloride (98-107) mmol/L Carbon Dioxide (22-30) mmol/L Anion Gap (4-12) mmol/L BUN (7-17) mg/dL Creatinine (0.7-1.0) mg/dL Estim Creat Clear Calc ml/min Estimated GFR (59 - ) Glucose (65-110) mg/dL Calculated Osmolality (285-295) mOsm/kg Lactic Acid (0.7-2.0) mmol/L Calcium (8.4-10.2) mg/dL Magnesium (1.6-2.3) mg/dL Total Bilirubin (0.2-1.3) mg/dL AST (14-36) U/L ALT (6-35) U/L Alkaline Phosphatase (38-126) U/L Total Protein (6.3-8.2) g/dL Albumin (3.5-5.1) g/dL Lipase (23-300) U/L Beta HCG, Quant mIU/ML Urine Color Light yellow (Yellow) Urine Appearance Clear (Clear) Urine pH 7.5 (5.0-8.0) Ur Specific [place] 1.010 (1.010-1.020) Urine Protein Negative (Negative) Urine Glucose (UA) Negative (Negative) Urine Ketones Trace H (Negative) Ur Blood (Man) Negative (Negative) Urine Nitrate Negative (Negative) Urine Bilirubin Negative (Negative) Urine Urobilinogen 0.2 (0.2-1.0) mg/dL Leukocyte Esterase Rfl Negative (Negative) BREANN/UL Urine Opiates Screen Negative (Negative) Urine Methadone Screen Negative (Negative) Ur Barbiturates Screen Negative (Negative) Ur Phencyclidine Scrn Negative (Negative) Ur Amphetamine Screen Negative (Negative) U Benzodiazepines Scrn Positive A (Negative) Urine Cocaine Screen Negative (Negative) U Cannabinoids Screen Positive A (Negative) Influenza A (RT-PCR) (Negative) Influenza B (RT-PCR) (Negative) RSV (RT-PCR) (Negative) SARS-CoV-2 RNA (RT-PCR) (Negative) Imaging Data Radiologist's impression: ITS Impressions Chest/Abdomen/Pelvis CT 05/20/25 10:23 IMPRESSION: CHEST- 1. No acute abnormality. ABDOMEN/PELVIS- 1. Minimal colitis not excluded. 2. Otherwise no acute abnormality. Discharge Plan Discharge Clinical Impression: Dehydration, Cannabis hyperemesis syndrome concurrent with and due to cannabis abuse, Elevated lactic acid level, Elevated blood pressure reading Nausea & vomiting Qualifiers: Vomiting type: unspecified Qualified Code(s): R11.2 - Nausea with vomiting, unspecified Patient Disposition: Home Condition: Improved Instructions: Dehydration (ED), How to Take a Blood Pressure Reading (ED), Acute Nausea and Vomiting (ED), Cannabis Use Disorder (ED), Cyclic Vomiting Syndrome (ED) Patient Language: Turkish Prescriptions: New ondansetron 4 mg tablet,disintegrating 4 mg PO Q6H PRN (Reason: nausea and vomiting) Qty: 30 0RF pantoprazole [Protonix] 40 mg tablet,delayed release (DR/EC) 40 mg PO HS 28 Days Qty: 28 0RF No Action quetiapine [Seroquel] 50 mg tablet 50 mg PO HS Qty: 90 1RF methocarbamol 750 mg tablet 750 mg PO TID PRN (Reason: muscle pain) Qty: 30 1RF Drysol 20 % solution See Rx Instructions .ROUTE .COMPLEX Qty: 75 1RF Dose Instruction: APPLY TOPCIALLY TWICE WEEKLY NEEDED FOR HYPERHIDROSIS Rx Instructions: APPLY TOPCIALLY TWICE WEEKLY NEEDED FOR HYPERHIDROSIS dextroamphetamine-amphetamine [Adderall XR] 10 mg capsule,extended release 24hr 10 mg PO DAILY Qty: 30 0RF Rx Instructions: take at nofebruary dextroamphetamine-amphetamine [Adderall XR] 10 mg capsule,extended release 24hr 10 mg PO DAILY Qty: 30 0RF Rx Instructions: take at [facility] dextroamphetamine-amphetamine [Adderall XR] 10 mg capsule,extended release 24hr 10 mg PO DAILY Qty: 30 0RF Rx Instructions: take at noapril dextroamphetamine-amphetamine [Adderall XR] 30 mg capsule,extended release 24hr 30 mg PO DAILY Qty: 30 0RF Rx Instructions: February dextroamphetamine-amphetamine [Adderall XR] 30 mg capsule,extended release 24hr 30 mg PO DAILY Qty: 30 0RF Rx Instructions: March dextroamphetamine-amphetamine [Adderall XR] 30 mg capsule,extended release 24hr 30 mg PO DAILY Qty: 30 0RF Rx Instructions: April diazepam 5 mg tablet 5 mg PO TID PRN (Reason: muscle spasm) Qty: 30 2RF tramadol 50 mg tablet 50 mg PO Q6H PRN (Reason: pain) Qty: 60 1RF Follow-up/Referrals: Ronni Garcia MD [Physician, Internal Medicine] Time of Disposition: 12:39
[2025-05-20] MEDS: LACTATED RINGERS 1,000 ML 999 ML IV CONT ×2 (09:38→09:40)
[2025-05-20] MEDS: HALOPERIDOL LACTATE 5 MG/ML VIAL IV PUSH (09:39)
[2025-05-20] MEDS: LORazepam INJ (*CRX) 2 MG/ML VIAL IV PUSH (09:39)
[2025-05-20 09:41] LABS: Alanine Aminotransferase 43 U/L (6-35); Albumin Level 5.0 g/dL (3.5-5.1); Alkaline Phosphatase 119 U/L (38-126); Anion Gap 15 mmol/L (4-12); Aspartate Amino Transferase 39 U/L (14-36); Bilirubin,Total 0.4 mg/dL (0.2-1.3); Blood Urea Nitrogen 7 mg/dL (7-17); Calcium 9.8 mg/dL (8.4-10.2); Carbon Dioxide 20 mmol/L (22-30); Chloride 109 mmol/L (98-107); Estimated CRCL calculation 130 ml/min; Estimated Glomerular Filt Rate > 60; Glucose 145 mg/dL (65-110); Lipase 26 U/L (23-300); Osmolality Calculated 299 mOsm/kg (285-295); Potassium 3.6 mmol/L (3.4-5.0); Sodium 144 mmol/L (137-145); Total Protein 8.4 g/dL (6.3-8.2)
[2025-05-20] MEDS: PANTOPRAZOLE SODIUM IV 40 MG VIAL IV PUSH (09:42)
[2025-05-20 09:47] LABS: Magnesium 1.6 mg/dL (1.6-2.3)
[2025-05-20 09:58] LABS: Beta HCG Quantitative < 2.39 mIU/ML
[2025-05-20 10:46] LABS: Influenza A QL RT-PCR Negative (Negative); Influenza B QL RT-PCR Negative (Negative); RSV RNA, RT-PCR Negative (Negative); SARS-CoV-2 RNA PCR Negative (Negative)
[2025-05-20 11:51] LABS: Add Urine Microscopic? NO; Appearance Urine Clear (Clear); Glucose Urine UA Negative (Negative); Leukocyte Esterase Ur Negative LEU/UL (Negative); Nitrate Urine Negative (Negative); Specific Grav Ur 1.010 (1.010-1.020)
[2025-05-20 12:18] LABS: Cannabinoid Screen Urine Positive (Negative)
--- NOTE | 2025-05-20 12:51 | PC.NURSE ---
1230 PO CHALLENGE GIVEN AND PT BRIAN WELL
== END 2025-05-20 12:45 | disposition home or self-care (01) ==
PROVIDERS: Emergency Provider Emergency Medicine; PCP Family Medicine
DX: R11.16 Cannabis hyperemesis syndrome (principal); F12.19 Cannabis abuse with unspecified cannabis-induced disorder; R03.0 Elevated blood-pressure reading, without diagnosis of hypertension; E86.0 Dehydration; R11.2 Nausea with vomiting, unspecified; R74.02 Elevation of levels of lactic acid dehydrogenase [LDH]; Z20.822 Contact with and (suspected) exposure to COVID-19
CPT/HCPCS: 36415; 71260; 74177; 80053; 80307; 81003; 83605; 83690; 83735; 84702; 85025; 87637; 96361; 96374; 96375; 99284; J1630; J2060; J2470; J7120; Q9967